=== PATIENT | male | born 1955 | race Caucasian/White ===

== ENCOUNTER → 2016-12-31 | Outpatient (CLI) | payer MEDICAID ==
[~2016-12-31] MED LIST: HYDR-757 PO; NAPR-243 PO; OXYC-12 PO; TRAM-21 PO
== END ==
LOC: RAD 11:39
PROVIDERS: ATTEND Nurse Practitioner Family
DX: M75.122 Complete rotator cuff tear or rupture of left shoulder, not specified as traumatic (principal); M75.82 Other shoulder lesions, left shoulder; S46.812A Strain of other muscles, fascia and tendons at shoulder and upper arm level, left arm, initial encounter; X58.XXXA Exposure to other specified factors, initial encounter; Y99.8 Other external cause status
CPT/HCPCS: 73221

== ENCOUNTER 2018-06-17 05:35 | Outpatient (CLI) | payer MEDICAID ==
[~2018-06-17] VITALS: Ht 177.8 cm; Wt 89.8 kg
[~2018-06-17 05:35] MED LIST changes: +HYDR-4226 PO
[2018-06-17] MEDS ORDERED: METF-397 PO (14:03)
[2018-06-17] MEDS ORDERED: QUET100T PO (14:03)
[2018-06-17] MEDS ORDERED: ALPR1TAB2 PO (14:03)
[2018-06-17] MEDS ORDERED: TRAM50TA2 PO (14:03)
== END 2018-06-17 14:32 | disposition home or self-care (01) ==
LOC: PREOP 05:35
PROVIDERS: ATTEND Specialist
DX: Z01.818 Encounter for other preprocedural examination (principal)

== ENCOUNTER 2018-06-19 07:40 | Day surgery (SDC) | payer MEDICAID ==
[~2018-06-19] VITALS: Ht 177.8 cm; Wt 89.8 kg
[~2018-06-19 07:40] MED LIST changes: +ALPR1TAB2 PO; +METF-397 PO; +QUET100T PO; +TRAM50TA2 PO
--- OUTSIDE RECORDS SUMMARY | 2018-06-19 07:44 | XMS REPORT ---
Author Author ALEYDA PECK [facility] Address [address] [place] [address] Care Team Providers Care Bar Attendant Name Role Phone CISCO ALEYDA Unavailable PROBLEMS Type Condition ICD9-CM Code [id number] Code Onset Dates Condition Status SNOMED Code Problem Bipolar 2 disorder F31.81 Active 94096414 Problem Drug-induced erectile dysfunction N52.2 Active 512125055 Problem JAKE (generalized anxiety disorder) F41.1 Active 93012221 Problem Arthritis of knee, right M17.11 Active [id number] Problem Primary osteoarthritis of both knees M17.0 Active 245303949 Problem Pre-diabetes R73.03 Active 562741598 Problem Other chronic pain G89.29 Active 53127383 Problem Tobacco dependence F17.200 Active 92392631 Problem Lumbago with sciatica, right side M54.41 Active 127075925 ALLERGIES No Known Allergies ENCOUNTERS Encounter Location Date Diagnosis [place] [address] [address] July, [place] [address] [place] [id number] [place] [address]51- 6263 14 Jan, 2018 Primary osteoarthritis of both knees M17.0 [facility] [id number] [place] [address] 44202- 3578 13 Jan, 2018 Bipolar 2 disorder F31.81 and JAKE (generalized anxiety disorder) F41.1 [facility] [address] [address] 18 Dec, 2017 Primary osteoarthritis of both knees M17.0 [facility] [address] [id number] [place] [address] 82621- 5990 18 Dec, 2017 Lumbago with sciatica, right side M54.41 ; Arthritis of knee , right M17.11 and Encounter for immunization Z23 [facility] [id number] [address] Dec, [facility] [id number] [address] Dec, [facility] [id number] [address] Dec, [facility] [id number] [place] [address] 90813- 6006 Dec, Primary osteoarthritis of both knees M17.0 [facility] [id number] [place] [address] 23343- 2364 Nov, [facility] [id number] [address] Nov, Primary osteoarthritis of both knees M17.0 [facility] [id number] [address] Sep, [facility] [address], [place] [address] Sep, [facility] [address] [address] Sep, Primary osteoarthritis of both knees M17.0 ; Lumbago with sciatica, right side M54.41 ; Pre-diabetes R73.03 and Tobacco dependence F17.200 [facility] [address], [place] [address] Aug, [facility] [id number] [address] Aug, [facility] [id number] [address] Aug, [facility] [id number] [address] Aug, Primary osteoarthritis of both knees M17.0 ; Abnormal blood creatinine level R79.9 ; Lumbago with sciatica, right side M54.41 and Pre- diabetes R73.03 [facility] [id number] [place] [address] 34016- 1871 July, Bipolar 2 disorder F31.81 ; JAKE (generalized anxiety disorder) F41.1 and Tobacco dependence F17.200 [facility] [id number] [place] [address] 66440- 5572 July, [facility] [id number] [place] [address] 51542- 1424 Jun, [facility] [id number] [place] [address] 22486- 2319 Jun, [facility] [id number] [place] [address] 01199- 8234 Jun, Abnormal blood creatinine level R79.9 [facility] [id number] [place] [address] 95984- 6489 Jun, Pre-diabetes R73.03 and Primary osteoarthritis of both knees M17.0 [facility] [id number] [place] [address] 09439- 5547 Jun, Pre-diabetes R73.03 ; Other chronic pain G89.29 ; Primary osteoarthritis of both knees M17.0 ; Drug-induced erectile dysfunction N52.2 and Tobacco dependence F17.200 [facility] [id number] [place] [address] 73378- 0216 May, [facility] [id number] [place] [address] 98358- 9994 May, [facility] [id number] [place] [address] 42458- 3135 May, [facility] [id number] [place] [address] 73571- 1059 May, [facility] [id number] [place] [address] 27729- 1521 May, [facility] [id number] [place] [address] 79023- 8074 May, [facility] [address] [address]- [address]483 May, Bipolar 2 disorder F31.81 ; JAKE (generalized anxiety disorder) F41.1 and Tobacco dependence F17.200 [facility] [address] [id number] [place] [address] 51849- 5421 Jan, [facility] [id number] [place] [address] 42255- 6752 Jan, [facility] [id number] [place] [address] 48683- 1990 Dec, [facility] [id number] [place] [address] 58116- 7835 Dec, [facility] [id number] [place] [address] 51594- 6456 Nov, [facility] [id number] [place] [address] 17154- 2792 Nov, Other chronic pain G89.29 and Pain in left shoulder M25.512 [place] [address] [address] [id number] [place] [address] 98169- 5565 05 Nov, 2016 Bipolar 2 disorder F31.81 and JAKE (generalized anxiety disorder) F41.1 [place] [address] [address] [id number] [place] [address] 93431- 7760 Oct, Pre-diabetes R73.03 and Left anterior shoulder pain M25.512 [place] [address] [address] [id number] [place] [address] 38943- 9941 Sep, [place] [address] [id number] [place] [address] 06590- 6739 July, Lumbago with sciatica, right side M54.41 ; Left anterior shoulder pain M25.512 and Pain in right knee M25.561 [place] [address] [address] [id number] [place] [address] 27358- 8733 Jun, [place] [address] [address]- [address] Jun, retirement 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 ; Bipolar 2 disorder F31.81 and JAKE (generalized anxiety disorder) F41.1 [place] [address] [address]- 0986 May, Low back pain M54.5 ; Pain in right knee M25.561 ; Pain in left knee M25.562 and Pre-diabetes R73.03 [place] [address] [address]- [address]121 May, [place] [address] [address] [id number] [place] [address] 10191- 2685 May, [place] [address] [address]76- 4349 May, Drug-induced erectile dysfunction N52.2 [place] [address] [address] [id number] [place] [address] 34219- 0533 Mar, [place] [address] [address] [id number] [place] [address] 28873- 4431 Mar, [place] [address] [address] [id number] [place] [address] 07294- 0353 Mar, Encounter for routine adult health examination with abnormal findings Z00.01 ; Low back pain M54.5 ; Other chronic pain G89.29 ; Pain in right knee M25.561 ; Pain in left knee M25.562 ; Family history of diabetes mellitus Z83.3 and Drug-induced erectile dysfunction N52.2 [place] [address] [address] [id number] [place] [address] 62575- 1644 Mar, Bipolar 2 disorder F31.81 and JAKE (generalized anxiety disorder) F41.1 [place] [address] [place] [id number] [place] [address] 60269- 2667 Mar, [facility] [address] [place] [address]- 5212 Feb, [facility] [id number] [place] [address] 627382- 0815 Feb, [facility] [id number] [place] [address] 84908- 7502 Jan, [facility] [id number] [place] [address] 59585- 7407 Dec, [facility] [id number] [place] [address] 21933- 7192 Dec, [facility] [id number] [place] [address] 38252- 0785 Dec, Bipolar 2 disorder F31.81 and JAKE (generalized anxiety disorder) F41.1 [facility] [id number] [place] [address] 05591- 2670 Nov, [facility] [id number] [place] [address] 10500- 6400 Oct, Bipolar 2 disorder F31.81 and JAKE (generalized anxiety disorder) F41.1 [facility] [id number] [place] [address] 23491- 9092 Oct, Anxiety, generalized F41.1 [facility] [id number] [place] [address] 79425- 9151 Oct, Generalized anxiety disorder F41.1 and Excessive excitability/irritability with unrest R45.89 [facility] [id number] [place] [address] 52444- 8091 Oct, [facility] [id number] [place] [address] 869335- 1497 Sep, [facility] [id number] [place] [address] 94900- 5997 July, [facility] [id number] [place] [address] 11322- 5210 July, retirement 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 and Excessive excitability/ irritability with unrest R45.89 [facility] [id number] [place] [address] 16875- 6315 July, [facility] [id number] [place] [address] 42506- 1637 July, Generalized anxiety disorder F41.1 [facility] [id number] [place] [address] 94420- 0281 May, [facility] [address] [id number] [place] [address] 51268- 0044 May, [facility] [id number] [place] [address] 10810- 7084 Mar, [facility] [id number] [place] [address] 51516- 6148 Feb, [facility] [id number] [place] [address] 35279- 3180 Jan, [facility] [id number] [place] [address] 06534- 7279 Jan, Generalized anxiety disorder F41.1 and Encounter for observation for other suspected diseases and conditions ruled out Z03.89 [facility] [address] [id number] [place] [address] 50847- 6156 Jan, Generalized anxiety disorder F41.1 [facility] [address] [id number] [place] [address] 61266- 9639 Jan, [facility] [id number] [place] [address] 61434- 7165 Dec, Generalized anxiety disorder F41.1 [facility] [address] [id number] [place] [address] 13548- 2248 Dec, Family history of pinworm infection Z83.1 [facility] [id number] [place] [address] 52636- 1677 Nov, Generalized anxiety disorder 300.02 ; No condition on [place] V71.09 and Back problem 724.9 IMMUNIZATIONS No Known Immunizations SOCIAL HISTORY Never Assessed REASON FOR VISIT f/u-twooden,RMA, PDM, Anxiety / mood PLAN OF CARE Activity Details Follow Up 6 Months Reason: VITAL SIGNS Height 72 in 2018-02-10 Weight 205.3 lbs 2018-02-10 Temperature 97.6 degrees Fahrenheit 2018-02-10 Heart Rate 106 bpm 2018-02-10 Respiratory Rate 20 2018-02-10 BMI 27.84 kg/m2 2018-02-10 Blood pressure systolic 116 mmHg 2018-02-10 Blood pressure diastolic 64 mmHg 2018-02-10 MEDICATIONS Medication Instructions Dosage Frequency Start Date End Date Duration Status Xanax XR 3 MG Orally Once a day for anxiety 1 tablet Mar, Active Metformin HCl 500 mg 1 tablet with meals 12h 90 Active Xanax 1 MG Orally take at bedtime 1 tablet Mar, Active Seroquel 100 mg Orally at bedtime 1 tablet Oct, Active Tramadol HCl 50 mg Orally 3 times a day 1 tablet as needed 8h Aug, 60 days Active Viagra 25 MG Orally Once a day 1-2 tablet daily as needed before sexual activitiy 24h 5 Active RESULTS No Results PROCEDURES Procedure Date Ordered Result Body Site LAB NOT BILLED BY [employer] Feb 10, 2018 INSTRUCTIONS MEDICATIONS ADMINISTERED No Known Medications MEDICAL (GENERAL) HISTORY Type Description Date Medical History Anxiety Medical History depression Medical History Bilateral knee pain-needing repair Medical History 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
--- OUTSIDE RECORDS SUMMARY | 2018-06-19 07:44 | XMS REPORT ---
Author Author YANDY WATT Organization [facility] Address [address] [place] [address] Care Team Providers Care Academic Counselor Name Role Phone YANDY WATT Unavailable PROBLEMS Type Condition ICD9-CM Code TKY27-CN Code Onset Dates Condition Status SNOMED Code Problem Bipolar 2 disorder F31.81 Active 69598501 Problem Drug-induced erectile dysfunction N52.2 Active 055337257 Problem JAKE (generalized anxiety disorder) F41.1 Active 13666682 Problem Arthritis of knee, right M17.11 Active [id number] Problem Primary osteoarthritis of both knees M17.0 Active 675151799 Problem Pre-diabetes R73.03 Active 651317463 Problem Other chronic pain G89.29 Active 18583901 Problem Tobacco dependence F17.200 Active 56599260 Problem Lumbago with sciatica, right side M54.41 Active [id number] ALLERGIES No Information ENCOUNTERS Encounter Location Date Diagnosis [place] [address] [address] July, [facility] [id number] [place] [address]4085- [address]30 14 Jan, 2018 Primary osteoarthritis of both knees M17.0 [facility] [id number] [place] [address] 18428- 4463 13 Jan, 2018 Bipolar 2 disorder F31.81 and JAKE (generalized anxiety disorder) F41.1 [facility] [address] [address] 18 Dec, 2017 Primary osteoarthritis of both knees M17.0 [facility] [address] [address] 18 Dec, 2017 Lumbago with sciatica, right side M54.41 ; Arthritis of knee , right M17.11 and Encounter for immunization Z23 [facility] [id number] [address] Dec, [facility] [id number] [address] Dec, [facility] [id number] [address] Dec, [facility] [id number] [place] [address] 17541- 3029 Dec, Primary osteoarthritis of both knees M17.0 [facility] [id number] [place] [address] 88987- 4457 Nov, [facility] [id number] [address] Nov, Primary osteoarthritis of both knees M17.0 [facility] [id number] [place] [address] 45361- 0705 Sep, [facility] [id number] [address] Sep, [facility] [id number] [address] Sep, Primary osteoarthritis of both knees M17.0 ; Lumbago with sciatica, right side M54.41 ; Pre-diabetes R73.03 and Tobacco dependence F17.200 [facility] [address] [address] Aug, [facility] [address] [address] Aug, [facility] [id number] [address] Aug, [facility] [address] [address] Aug, Primary osteoarthritis of both knees M17.0 ; Abnormal blood creatinine level R79.9 ; Lumbago with sciatica, right side M54.41 and Pre- diabetes R73.03 [facility] [id number] [place] [address] 17841- 6787 July, Bipolar 2 disorder F31.81 ; JAKE (generalized anxiety disorder) F41.1 and Tobacco dependence F17.200 [facility] [id number] [place] [address] 55046- 2330 July, [facility] [id number] [place] [address] 35334- 3344 Jun, [facility] [id number] [place] [address] 06862- 0783 Jun, [facility] [id number] [place] [address] 71818- 4079 Jun, Abnormal blood creatinine level R79.9 [facility] [id number] [place] [address] 27187- 1218 Jun, Pre-diabetes R73.03 and Primary osteoarthritis of both knees M17.0 [facility] [id number] [place] [address] 45618- 4170 Jun, Pre-diabetes R73.03 ; Other chronic pain G89.29 ; Primary osteoarthritis of both knees M17.0 ; Drug-induced erectile dysfunction N52.2 and Tobacco dependence F17.200 [facility] [id number] [place] [address] 26583- 5827 May, [facility] [id number] [place] [address] 68647- 9778 May, [facility] [id number] [place] [address] 22185- 1638 May, [facility] [id number] [place] [address] 69380- 9074 May, [facility] [id number] [place] [address] 81048- 9071 May, [facility] [id number] [place] [address] 45882- 9333 May, [facility] [id number] [place] [address] 74352- 5911 May, Bipolar 2 disorder F31.81 ; JAKE (generalized anxiety disorder) F41.1 and Tobacco dependence F17.200 [facility] [id number] [place] [address] 30797- 7949 Jan, [facility] [id number] [place] [address] 45939- 3475 Jan, [facility] [id number] [place] [address] 90049- 5530 Dec, [facility] [id number] [place] [address] 15707- 5785 Dec, [facility] [id number] [place] [address] 09810- 4807 Nov, [facility] [id number] [place] [address] 03660- 9495 Nov, Other chronic pain G89.29 and Pain in left shoulder M25.512 [place] [id number] [place] [address] 17433- 7741 05 Nov, 2016 Bipolar 2 disorder F31.81 and JAKE (generalized anxiety disorder) F41.1 [facility] [id number] [place] [address] 44386- 4806 Oct, Pre-diabetes R73.03 and Left anterior shoulder pain M25.512 [facility] [id number] [place] [address] 75712- 0849 Sep, [facility] [id number] [place] [address] 67881- 5890 July, Lumbago with sciatica, right side M54.41 ; Left anterior shoulder pain M25.512 and Pain in right knee M25.561 [facility] [id number] [place] [address] 78243- 9941 Jun, [place] [address] [address] Jun, intermediate 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 ; Bipolar 2 disorder F31.81 and JAKE (generalized anxiety disorder) F41.1 [place] [address] [address]- [address] May, Low back pain M54.5 ; Pain in right knee M25.561 ; Pain in left knee M25.562 and Pre-diabetes R73.03 [place] [address] [address] May, [place] [id number] [place] [address] 84186- 9008 May, [place] [address] 40[address]- 6298 May, Drug-induced erectile dysfunction N52.2 [place] [id number] [place] [address] 77675- 2625 Mar, [place] [id number] [place] [address] 51903- 0126 Mar, [place] [id number] [place] [address] 83121- 3410 Mar, Encounter for routine adult health examination with abnormal findings Z00.01 ; Low back pain M54.5 ; Other chronic pain G89.29 ; Pain in right knee M25.561 ; Pain in left knee M25.562 ; Family history of diabetes mellitus Z83.3 and Drug-induced erectile dysfunction N52.2 [place] [id number] [place] [address] 89054- 2517 Mar, Bipolar 2 disorder F31.81 and JAKE (generalized anxiety disorder) F41.1 [place] [id number] [place] [address] 51478- 7843 Mar, [facility] [address], [place] [address]- 9[address] Feb, [facility] [id number] [place] [address] 617854- 9320 Feb, [facility] [id number] [place] [address] 83013- 4175 Jan, [facility] [id number] [place] [address] 55055- 8568 Dec, [facility] [id number] [place] [address] 02654- 1716 Dec, [facility] [id number] [place] [address] 46178- 9043 Dec, Bipolar 2 disorder F31.81 and JAKE (generalized anxiety disorder) F41.1 [facility] [id number] [place] [address] 70463- 8225 Nov, [facility] [id number] [place] [address] 24149- 8167 Oct, Bipolar 2 disorder F31.81 and JAKE (generalized anxiety disorder) F41.1 [facility] [id number] [place] [address] 59420- 1796 Oct, Anxiety, generalized F41.1 [facility] [id number] [place] [address] 64617- 2442 Oct, Generalized anxiety disorder F41.1 and Excessive excitability/irritability with unrest R45.89 [facility] [id number] [place] [address] 58265- 7040 Oct, [facility] [id number] [place] [address] 450678- 3765 Sep, [facility] [id number] [place] [address] 232567- 8961 July, [facility] [id number] [place] [address] 40486- 3138 July, intermediate 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 and Excessive excitability/ irritability with unrest R45.89 [facility] [id number] [place] [address] 48748- 3742 July, [facility] [id number] [place] [address] 86869- 6599 July, Generalized anxiety disorder F41.1 [facility] [id number] [place] [address] 50513- 9723 May, [facility] [id number] [place] [address] 43918- 6092 May, [facility] [id number] [place] [address] 67340- 8811 Mar, [facility] [id number] [place] [address] 77611- 6876 Feb, [facility] [id number] [place] [address] 27361- 5849 Jan, [facility] [id number] [place] [address] 67218- 9531 Jan, Generalized anxiety disorder F41.1 and Encounter for observation for other suspected diseases and conditions ruled out Z03.89 [facility] [id number] [place] [address] 54790- 4236 Jan, Generalized anxiety disorder F41.1 [facility] [id number] [place] [address] 37918- 7628 Jan, [facility] [id number] [place] [address] 43974- 5288 Dec, Generalized anxiety disorder F41.1 [facility] [id number] [place] [address] 52251- 4876 Dec, Family history of pinworm infection Z83.1 [facility] [id number] [place] [address] 80060- 0249 Nov, Generalized anxiety disorder 300.02 ; No condition on [place] II V71.09 and Back problem 724.9 IMMUNIZATIONS No Known Immunizations SOCIAL HISTORY Never Assessed REASON FOR VISIT Controlled Med Refill 02/12 PLAN OF CARE VITAL SIGNS MEDICATIONS Unknown Medications RESULTS No Results PROCEDURES No Known procedures INSTRUCTIONS MEDICATIONS ADMINISTERED No Known Medications MEDICAL (GENERAL) HISTORY Type Description Date Medical History Anxiety Medical History depression Medical History Bilateral knee pain-needing repair Medical History 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
--- OUTSIDE RECORDS SUMMARY | 2018-06-19 07:44 | XMS REPORT ---
Author Author ALEYDA PECK 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 Phone [employer]IS[employer] ALEYDA Unavailable PROBLEMS Type Condition ICD9-CM Code VRG31-FX Code Onset Dates Condition Status SNOMED Code Problem Bipolar 2 disorder F31.81 Active 53572292 Problem Drug-induced erectile dysfunction N52.2 Active 525301217 Problem JAKE (generalized anxiety disorder) F41.1 Active 43734789 Problem Arthritis of knee, right M17.11 Active 6107512148117965 Problem Primary osteoarthritis of both knees M17.0 Active 372396535 Problem Pre-diabetes R73.03 Active 406968847 Problem Other chronic pain G89.29 Active 32029723 Problem Tobacco dependence F17.200 Active 85508881 Problem Lumbago with sciatica, right side M54.41 Active 237332934 ALLERGIES No Information ENCOUNTERS Encounter Location Date Diagnosis [facility] [address] [address]92- [address] 14 Jul, 2018 [facility] [address] 07805- 5038 18 Feb, 2018 [facility] [address] 80438- 9240 14 Jan, 2018 Primary osteoarthritis of both knees M17.0 [facility] [address] 54200- 7466 13 Jan, 2018 Bipolar 2 disorder F31.81 and JAKE (generalized anxiety disorder) F41.1 [facility] [address] 04995- 8665 18 Dec, 2017 Primary osteoarthritis of both knees M17.0 [facility] [address] 64098- 6658 Dec, Lumbago with sciatica, right side M54.41 ; Arthritis of knee , right M17.11 and Encounter for immunization Z23 [facility] [id number] [place] [address] 54332- 6188 Dec, [facility] [id number] [place] [address] 35785- 9243 Dec, [facility] [id number] [place] [address] 03764- 1027 Dec, [facility] [id number] [place] [address] 44686- 7332 Dec, Primary osteoarthritis of both knees M17.0 [facility] [id number] [place] [address] 72601- 9164 Nov, [facility] [id number] [place] [address] 03694- 9146 Nov, Primary osteoarthritis of both knees M17.0 [facility] [id number] [place] [address] 12877- 3109 Sep, [facility] [id number] [place] [address] 57787- 1226 Sep, [facility] [address] [address]- 1360 Sep, Primary osteoarthritis of both knees M17.0 ; Lumbago with sciatica, right side M54.41 ; Pre-diabetes R73.03 and Tobacco dependence F17.200 [facility] [address] [address]- 0028 Aug, [facility] [id number] [place] [address] 67798- 7312 Aug, [facility] [id number] [address]- 6830 Aug, [facility] [id number] [place] [address] 77241- 2100 Aug, Primary osteoarthritis of both knees M17.0 ; Abnormal blood creatinine level R79.9 ; Lumbago with sciatica, right side M54.41 and Pre- diabetes R73.03 [facility] [id number] [place] [address] 77348- 3883 July, Bipolar 2 disorder F31.81 ; JAKE (generalized anxiety disorder) F41.1 and Tobacco dependence F17.200 [facility] [id number] [place] [address] 88016- 1466 July, [facility] [id number] [place] [address] 22361- 8229 Jun, [facility] [id number] [place] [address] 70434- 6099 Jun, [facility] [id number] [place] [address] 91959- 5714 Jun, Abnormal blood creatinine level R79.9 [facility] [id number] [place] [address] 78437- 1389 Jun, Pre-diabetes R73.03 and Primary osteoarthritis of both knees M17.0 [facility] [id number] [place] [address] 23706- 2258 Jun, Pre-diabetes R73.03 ; Other chronic pain G89.29 ; Primary osteoarthritis of both knees M17.0 ; Drug-induced erectile dysfunction N52.2 and Tobacco dependence F17.200 [facility] [id number] [place] [address] 93791- 3857 May, [facility] [id number] [place] [address] 46910- 7582 May, [facility] [id number] [place] [address] 38154- 5240 May, [facility] [id number] [place] [address] 25336- 2047 May, [facility] [address] [address]- 2586 May, [facility] [id number] [place] [address] 25031- 7926 May, [facility] [id number] [place] [address] 19006- 9416 May, Bipolar 2 disorder F31.81 ; JAKE (generalized anxiety disorder) F41.1 and Tobacco dependence F17.200 [facility] [id number] [place] [address] 45510- 7216 Jan, [facility] [id number] [place] [address] 79814- 5646 Jan, [facility] [id number] [place] [address] 06651- 5866 Dec, [facility] [id number] [place] [address] 05042- 7610 Dec, [facility] [id number] [place] [address] 01750- 4189 Nov, [facility] [id number] [place] [address] 10000- 6755 Nov, Other chronic pain G89.29 and Pain in left shoulder M25.512 [facility] [id number] [place] [address] 65720- 5338 05 Nov, 2016 Bipolar 2 disorder F31.81 and JAKE (generalized anxiety disorder) F41.1 [facility] [id number] [place] [address] 18702- 9226 Oct, Pre-diabetes R73.03 and Left anterior shoulder pain M25.512 [facility] [id number] [place] [address] 76731- 2546 Sep, [facility] [id number] [place] [address] 72756- 2643 July, Lumbago with sciatica, right side M54.41 ; Left anterior shoulder pain M25.512 and Pain in right knee M25.561 [facility] [id number] [place] [address] 50379- 3024 Jun, [place] [facility] [id number] [place] [address] 11768- 0423 Jun, 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 ; Bipolar 2 disorder F31.81 and JAKE (generalized anxiety disorder) F41.1 [facility] [id number] [place] [address] 19329- 5105 May, Low back pain M54.5 ; Pain in right knee M25.561 ; Pain in left knee M25.562 and Pre-diabetes R73.03 [facility] [id number] [place] [address] 39900- 6683 May, [facility] [address] 16381- 8356 May, [facility] [id number] [place] [address] 40628- 2930 May, Drug-induced erectile dysfunction N52.2 [facility] [id number] [place] [address] 41365- 5331 Mar, [facility] [id number] [place] [address] 20099- 0886 Mar, [facility] [id number] [place] [address] 03489- 8576 Mar, Encounter for routine adult health examination with abnormal findings Z00.01 ; Low back pain M54.5 ; Other chronic pain G89.29 ; Pain in right knee M25.561 ; Pain in left knee M25.562 ; Family history of diabetes mellitus Z83.3 and Drug-induced erectile dysfunction N52.2 [place] [facility] [id number] [place] [address] 61338- 8976 Mar, Bipolar 2 disorder F31.81 and JAKE (generalized anxiety disorder) F41.1 [facility] [id number] [place] [address] 62104- 2741 Mar, [facility] [id number] [place] [address] 39533- 8419 Feb, [facility] [id number] [place] [address] 80516- 7736 Feb, [facility] [id number] [place] [address] 57309- 2601 Jan, [facility] [id number] [place] [address] 32139- 9523 Dec, [facility] [id number] [place] [address] 94083- 3456 Dec, [facility] [id number] [place] [address] 25691- 4437 Dec, Bipolar 2 disorder F31.81 and JAKE (generalized anxiety disorder) F41.1 [facility] [id number] [place] [address] 43436- 1901 Nov, [facility] [id number] [place] [address] 35503- 1177 Oct, Bipolar 2 disorder F31.81 and JAKE (generalized anxiety disorder) F41.1 [facility] [id number] [place] [address] 90481- 4770 Oct, Anxiety, generalized F41.1 [facility] [id number] [place] [address] 74134- 5119 Oct, Generalized anxiety disorder F41.1 and Excessive excitability/irritability with unrest R45.89 [facility] [id number] [place] [address] 52172- 9106 Oct, [facility] [id number] [place] [address] 481272- 3546 Sep, [facility] [id number] [place] [address] 31495- 3779 July, [facility] [id number] [place] [address] 15670- 7992 July, assisted 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 and Excessive excitability/ irritability with unrest R45.89 [facility] [id number] [place] [address] 32980- 8141 July, [facility] [id number] [place] [address] 35287- 1865 July, Generalized anxiety disorder F41.1 [facility] [id number] [place] [address] 68754- 0727 May, [facility] [id number] [place] [address] 48317- 2870 May, [facility] [id number] [place] [address] 51009- 4390 Mar, [facility] [id number] [place] [address] 21964- 6461 Feb, [facility] [id number] [place] [address] 99997- 9013 Jan, [facility] [id number] [place] [address] 65740- 5145 Jan, Generalized anxiety disorder F41.1 and Encounter for observation for other suspected diseases and conditions ruled out Z03.89 [facility] [id number] [place] [address] 84138- 7856 Jan, Generalized anxiety disorder F41.1 [facility] [id number] [place] [address] 80009- 3217 Jan, [facility] [id number] [place] [address] 73750- 5332 Dec, Generalized anxiety disorder F41.1 [facility] [address] [address]- 4483 Dec, Family history of pinworm infection Z83.1 [facility] [address] [facility] [id number] [place] [address]- 1480 Nov, Generalized anxiety disorder 300.02 ; No condition on [place] II V71.09 and Back problem 724.9 IMMUNIZATIONS No Known Immunizations SOCIAL HISTORY Never Assessed REASON FOR VISIT xanax refill PLAN OF CARE VITAL SIGNS MEDICATIONS Medication Instructions Dosage Frequency Start Date End Date Duration Status Xanax XR 3 MG Orally Once a day for anxiety 1 tablet Mar, 30 days Active Xanax 1 MG Orally take at bedtime 1 tablet Mar, 30 days Active RESULTS No Results PROCEDURES No Known procedures INSTRUCTIONS MEDICATIONS ADMINISTERED No Known Medications MEDICAL (GENERAL) HISTORY Type Description Date Medical History Anxiety Medical History depression Medical History Bilateral knee pain-needing repair Medical History Disc herniation in lumbar spine Medical History Fractured clavicle-healed incorrectly Surgical History Right shoulder rotator cuff repair Surgical History Left Shoulder reconstruction 2017 Hospitalization History Surgeries Hospitalization History Disc dislocation- [facility]
[2018-06-19 07:45] VITALS: BP 109/86
--- OUTSIDE RECORDS SUMMARY | 2018-06-19 07:45 | XMS REPORT ---
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 Name Role Phone YANDY WATT Unavailable PROBLEMS Type Condition ICD9-CM Code ZPW86-GQ Code Onset Dates Condition Status SNOMED Code Problem JAKE (generalized anxiety disorder) F41.1 Active 89225662 Problem Bipolar 2 disorder F31.81 Active 17428641 Problem Primary osteoarthritis of both knees M17.0 Active 399469128 Problem Tobacco dependence F17.200 Active 40699803 Problem Other chronic pain G89.29 Active 01735900 Problem Drug-induced erectile dysfunction N52.2 Active 143345075 Problem Lumbago with sciatica, right side M54.41 Active 170539284 Problem Pre-diabetes R73.03 Active 957875168 ALLERGIES No Information ENCOUNTERS Encounter Location Date Diagnosis [facility] [id number] [place] [address] 22046- 4185 Jan, [facility] [id number] [place] [address] 49469- 0883 Nov, Primary osteoarthritis of both knees M17.0 [facility] [id number] [place] [address] 91459- 9940 Sep, [facility] [id number] [place] [address] 42313- 4312 Sep, [facility] [id number] [place] [address] 71749- 5826 Sep, Primary osteoarthritis of both knees M17.0 ; Lumbago with sciatica, right side M54.41 ; Pre-diabetes R73.03 and Tobacco dependence F17.200 [facility] [id number] [place] [address] 54112- 9849 Aug, [facility] [address], [place] [address]- 3651 Aug, [facility] [id number] [place] [address] 37204- 5272 Aug, [facility] [id number] [place] [address] 84081- 2631 Aug, Primary osteoarthritis of both knees M17.0 ; Abnormal blood creatinine level R79.9 ; Lumbago with sciatica, right side M54.41 and Pre- diabetes R73.03 [facility] [id number] [place] [address] 01625- 4748 July, Bipolar 2 disorder F31.81 ; JAKE (generalized anxiety disorder) F41.1 and Tobacco dependence F17.200 [facility] [id number] [place] [address] 07303- 6173 July, [facility] [id number] [place] [address] 35307- 8136 Jun, [facility] [id number] [place] [address] 69966- 2401 Jun, [facility] [id number] [place] [address] 77843- 0823 Jun, Abnormal blood creatinine level R79.9 [facility] [id number] [place] [address] 38415- 1639 Jun, Pre-diabetes R73.03 and Primary osteoarthritis of both knees M17.0 [facility] [address], [place] [address]- 0485 Jun, Pre-diabetes R73.03 ; Other chronic pain G89.29 ; Primary osteoarthritis of both knees M17.0 ; Drug-induced erectile dysfunction N52.2 and Tobacco dependence F17.200 [facility] [address], [place] [address]- 6226 May, [facility] [id number] [address]- 7899 May, [facility] [id number] [place] [address] 33485- 4747 May, [facility] [id number] [place] [address] 56282- 5216 May, [facility] [id number] [place] [address] 36903- 6774 May, [facility] [id number] [place] [address] 17239- 3045 May, [facility] [id number] [place] [address] 13657- 5808 May, Bipolar 2 disorder F31.81 ; JAKE (generalized anxiety disorder) F41.1 and Tobacco dependence F17.200 [facility] [id number] [place] [address] 06745- 0412 Jan, [facility] [id number] [place] [address] 88594- 7421 Jan, [facility] [id number] [place] [address] 08584- 1320 Dec, [facility] [id number] [place] [address] 83901- 0578 Dec, [facility] [id number] [place] [address] 31471- 3189 Nov, [facility] [id number] [place] [address] 22301- 2183 Nov, Other chronic pain G89.29 and Pain in left shoulder M25.512 [facility] [id number] [place] [address] 27174- 0529 05 Nov, 2016 Bipolar 2 disorder F31.81 and JAKE (generalized anxiety disorder) F41.1 [facility] [id number] [place] [address] 03502- 1983 Oct, Pre-diabetes R73.03 and Left anterior shoulder pain M25.512 [facility] [id number] [place] [address] 78576- 1409 Sep, [facility] [id number] [place] [address] 14937- 6397 July, Lumbago with sciatica, right side M54.41 ; Left anterior shoulder pain M25.512 and Pain in right knee M25.561 [facility] [id number] [place] [address] 47912- 8878 Jun, [facility] [id number] [place] [address] 29273- 5485 Jun, 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 ; Bipolar 2 disorder F31.81 and JAKE (generalized anxiety disorder) F41.1 [place] [id number] [place] [address] 37082- 6091 May, Low back pain M54.5 ; Pain in right knee M25.561 ; Pain in left knee M25.562 and Pre-diabetes R73.03 [facility] [id number] [place] [address] 14363- 7803 May, [facility] [id number] [place] [address] 17395- 3893 May, [facility] [id number] [place] [address] 84054- 5508 May, Drug-induced erectile dysfunction N52.2 [facility] [id number] [place] [address] 77219- 0432 Mar, [facility] [id number] [place] [address] 95568- 5665 Mar, [facility] [id number] [place] [address] 76517- 4257 Mar, Encounter for routine adult health examination with abnormal findings Z00.01 ; Low back pain M54.5 ; Other chronic pain G89.29 ; Pain in right knee M25.561 ; Pain in left knee M25.562 ; Family history of diabetes mellitus Z83.3 and Drug-induced erectile dysfunction N52.2 [facility] [id number] [place] [address] 82283- 4558 Mar, Bipolar 2 disorder F31.81 and JAKE (generalized anxiety disorder) F41.1 [facility] [address] 19180- 6291 Mar, [facility] [id number] [place] [address] 95347- 8833 Feb, [facility] [address] 94037- 0745 Feb, [facility] [address] 25071- 1412 Jan, [facility] [address] 29040- 7763 Dec, [facility] [id number] [place] [address] 92832- 0951 Dec, [facility] [id number] [place] [address] 67891- 4655 Dec, Bipolar 2 disorder F31.81 and JAKE (generalized anxiety disorder) F41.1 [facility] [id number] [place] [address] 54666- 1942 Nov, [facility] [id number] [place] [address] 24612- 8832 Oct, Bipolar 2 disorder F31.81 and JAKE (generalized anxiety disorder) F41.1 [facility] [id number] [place] [address] 94207- 7705 Oct, Anxiety, generalized F41.1 [facility] [id number] [place] [address] 58228- 2661 Oct, Generalized anxiety disorder F41.1 and Excessive excitability/irritability with unrest R45.89 [facility] [id number] [place] [address] 71384- 6731 Oct, [facility] [id number] [place] [address] 61897- 5136 Sep, [facility] [id number] [place] [address] 26455- 9026 July, [facility] [address] 33153- 4256 July, 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 and Excessive excitability/ irritability with unrest R45.89 [facility] [address] 26460- 3884 July, [facility] [id number] [place] [address] 06497- 7009 July, Generalized anxiety disorder F41.1 [facility] [address] 70967- 9617 May, [facility] [id number] [place] [address] 59103- 4130 May, [facility] [id number] [place] [address] 52890- 4471 Mar, [facility] [id number] [place] [id number]- [id number] Feb, [facility] [id number] [place] [address] [phone]- [phone] Jan, [facility] [id number] [place] [address] [id number]- 4[address] Jan, Generalized anxiety disorder F41.1 and Encounter for observation for other suspected diseases and conditions ruled out Z03.89 [facility] [id number] [place] [address] [id number]- 6760 Jan, Generalized anxiety disorder F41.1 [facility] [id number] [place] [phone]- [phone] Jan, [facility] [address] [facility] [id number] [address] Dec, Generalized anxiety disorder F41.1 [facility] [address] [facility] [id number], [place] [address] Dec, Family history of pinworm infection Z83.1 [facility] [address] [facility] [id number], [place] [address] Nov, Generalized anxiety disorder 300.02 ; No condition on [place] II V71.09 and Back problem 724.9 IMMUNIZATIONS No Known Immunizations SOCIAL HISTORY Never Assessed REASON FOR VISIT diagnosis question PLAN OF CARE VITAL SIGNS MEDICATIONS Unknown [...] Hospitalization History Surgeries Hospitalization History Disc dislocation- [facility]
--- OUTSIDE RECORDS SUMMARY | 2018-06-19 07:45 | XMS REPORT ---
Author Author YANDY WATT Organization [facility] Address [address] [place] [address] Care Team Providers Care Public Information Specialist Name Role Phone YANDY WATT Unavailable PROBLEMS Type Condition ICD9-CM Code KLP98-TM Code Onset Dates Condition Status SNOMED Code Problem JAKE (generalized anxiety disorder) F41.1 Active 46530001 Problem Bipolar 2 disorder F31.81 Active 15536178 Problem Primary osteoarthritis of both knees M17.0 Active 902045276 Problem Tobacco dependence F17.200 Active 55666379 Problem Other chronic pain G89.29 Active 09017210 Problem Drug-induced erectile dysfunction N52.2 Active 369627948 Problem Lumbago with sciatica, right side M54.41 Active 902891348 Problem Pre-diabetes R73.03 Active 418774654 ALLERGIES No Information ENCOUNTERS Encounter Location Date Diagnosis [facility] [id number] [place] [address] 69032- 7704 Jan, [facility] [id number] [place] [address] 22395- 5157 Dec, [facility] [id number] [place] [address] 61536- 6447 Dec, [facility] [id number] [place] [address] 39694- 8784 Dec, [facility] [id number] [place] [address] 67128- 2718 Dec, Primary osteoarthritis of both knees M17.0 [facility] [id number] [place] [address] 97076- 3114 Nov, [facility] [id number] [place] [address] 66337- 1496 Nov, Primary osteoarthritis of both knees M17.0 [facility] [address] [address]- 9064 Sep, [facility] [id number] [place] [address] 60783- 5876 Sep, [facility] [address] [address] 8573 Sep, Primary osteoarthritis of both knees M17.0 ; Lumbago with sciatica, right side M54.41 ; Pre-diabetes R73.03 and Tobacco dependence F17.200 [facility] [id number] [place] [address] 53052- 9226 Aug, [facility] [id number] [place] [address] 58614- 4739 Aug, [facility] [id number] [place] [address] 81713- 8153 Aug, [facility] [id number] [address]- 6315 Aug, Primary osteoarthritis of both knees M17.0 ; Abnormal blood creatinine level R79.9 ; Lumbago with sciatica, right side M54.41 and Pre- diabetes R73.03 [facility] [address] [address] 2022 July, Bipolar 2 disorder F31.81 ; JAKE (generalized anxiety disorder) F41.1 and Tobacco dependence F17.200 [facility] [address] [address]- 9799 July, [facility] [id number] [address]- 3875 Jun, [facility] [id number] [address]- 5800 Jun, [facility] [address] [address]- 0051 05 Apr, 2018 Abnormal blood creatinine level R79.9 [facility] [address] [address]- 3308 Jun, Pre-diabetes R73.03 and Primary osteoarthritis of both knees M17.0 [facility] [id number] [place] [address] 55570- 3153 02 Jun, 2017 Pre-diabetes R73.03 ; Other chronic pain G89.29 ; Primary osteoarthritis of both knees M17.0 ; Drug-induced erectile dysfunction N52.2 and Tobacco dependence F17.200 [facility] [id number] [place] [address] 06766- 9019 May, [facility] [id number] [place] [address] 92380- 6800 May, [facility] [id number] [place] [address] 17336- 6798 May, [facility] [id number] [place] [address] 96148- 1561 May, [facility] [id number] [place] [address] 75831- 3713 May, [facility] [id number] [place] [address] 40004- 3926 May, [facility] [id number] [place] [address] 54914- 0807 May, Bipolar 2 disorder F31.81 ; JAKE (generalized anxiety disorder) F41.1 and Tobacco dependence F17.200 [facility] [id number] [address]- 9700 Jan, [facility] [id number] [place] [address] 08018- 7589 Jan, [facility] [id number] [place] [address] 10503- 0963 Dec, [facility] [id number] [place] [address] 72300- 1844 Dec, [facility] [id number] [place] [address] 84174- 9762 Nov, [facility] [id number] [place] [address] 32170- 3279 Nov, Other chronic pain G89.29 and Pain in left shoulder M25.512 [facility] [id number] [place] [address] 06135- 5981 Nov, Bipolar 2 disorder F31.81 and JAKE (generalized anxiety disorder) F41.1 [facility] [id number] [place] [address] 56235- 0113 Oct, Pre-diabetes R73.03 and Left anterior shoulder pain M25.512 [facility] [id number] [place] [address] 17299- 2229 Sep, [facility] [address] 63108- 0096 July, Lumbago with sciatica, right side M54.41 ; Left anterior shoulder pain M25.512 and Pain in right knee M25.561 [facility] [id number] [place] [address] 28769- 2759 Jun, [facility] [id number] [place] [address] 29298- 4782 Jun, 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 ; Bipolar 2 disorder F31.81 and JAKE (generalized anxiety disorder) F41.1 [facility] [id number] [place] [address] 38534- 0187 May, Low back pain M54.5 ; Pain in right knee M25.561 ; Pain in left knee M25.562 and Pre-diabetes R73.03 [facility] [id number] [place] [address] 62670- 1799 May, [facility] [id number] [place] [address] 02122- 9934 May, [facility] [address] [address]- 4537 May, Drug-induced erectile dysfunction N52.2 [facility] [id number] [place] [address] 42845- 4293 Mar, [facility] [id number] [place] [address] 42184- 3523 Mar, [facility] [id number] [place] [address] 82693- 5520 Mar, Encounter for routine adult health examination with abnormal findings Z00.01 ; Low back pain M54.5 ; Other chronic pain G89.29 ; Pain in right knee M25.561 ; Pain in left knee M25.562 ; Family history of diabetes mellitus Z83.3 and Drug-induced erectile dysfunction N52.2 [facility] [id number] [place] [address] 70074- 5830 Mar, Bipolar 2 disorder F31.81 and JAKE (generalized anxiety disorder) F41.1 [facility] [id number] [place] [address] 36328- 0276 Mar, [facility] [id number] [place] [address] 99137- 1617 Feb, [facility] [id number] [place] [address] 68214- 5622 Feb, [facility] [id number] [place] [address] 78367- 9508 Jan, [facility] [id number] [place] [address] 55289- 8583 Dec, [facility] [id number] [place] [address] 49766- 2981 Dec, [facility] [id number] [place] [address] 60355- 1885 Dec, Bipolar 2 disorder F31.81 and JAKE (generalized anxiety disorder) F41.1 [facility] [id number] [place] [address] 08694- 0153 Nov, [facility] [id number] [place] [address] 74887- 1860 Oct, Bipolar 2 disorder F31.81 and JAKE (generalized anxiety disorder) F41.1 [facility] [id number] [place] [address] 37525- 5568 Oct, Anxiety, generalized F41.1 [facility] [id number] [place] [address] 10675- 0063 Oct, Generalized anxiety disorder F41.1 and Excessive excitability/irritability with unrest R45.89 [facility] [id number] [place] [address] 14113- 9581 Oct, [facility] [id number] [place] [address] 84499- 3171 Sep, [facility] [id number] [place] [address] 62649- 1311 July, [facility] [id number] [place] [address] 43786- 0901 July, 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 and Excessive excitability/ irritability with unrest R45.89 [facility] [id number] [place] [address] 30048- 2179 July, [facility] [id number] [place] [address] 71524- 7798 July, Generalized anxiety disorder F41.1 [facility] [id number] [place] [address] 97665- 4911 May, [facility] [id number] [place] [address] 56095- 3539 May, [facility] [id number] [place] [address] 25436- 8262 Mar, [facility] [address] [address]- 8684 Feb, [facility] [id number] [place] [address] 00820- 2786 Jan, [facility] [id number] [place] [address] 10481- 8879 Jan, Generalized anxiety disorder F41.1 and Encounter for observation for other suspected diseases and conditions ruled out Z03.89 [facility] [id number] [place] [address] 78461- 1926 Jan, Generalized anxiety disorder F41.1 [facility] [id number] [place] [address] 25159- 0241 Jan, [facility] [id number] [place] [address] 64901- 0249 Dec, Generalized anxiety disorder F41.1 [facility] [id number] [place] [address] 29226- 5758 Dec, Family history of pinworm infection Z83.1 [facility] [address] [place] [address] 99866- 1454 Nov, Generalized anxiety disorder 300.02 ; No condition on Rillito II V71.09 and Back problem 724.9 IMMUNIZATIONS No Known Immunizations SOCIAL HISTORY Never Assessed REASON FOR VISIT Controlled Med Refill PLAN OF CARE VITAL SIGNS MEDICATIONS Medication Instructions Dosage Frequency Start Date End Date Duration Status Tramadol HCl 50 mg Orally 3 times a day 1 tablet as needed 8h Aug, Active RESULTS No Results PROCEDURES No Known [...] Hospitalization History Surgeries Hospitalization History Disc dislocation- [facility]
--- OUTSIDE RECORDS SUMMARY | 2018-06-19 07:45 | XMS REPORT ---
Author Author [facility] Address [address] [place] [address] Care Team Providers Care Compliance Examiner Name Role Phone [facility] Unavailable PROBLEMS Type Condition ICD9-CM Code XNW67-IQ Code Onset Dates Condition Status SNOMED Code Problem JAKE (generalized anxiety disorder) F41.1 Active 90446921 Problem Bipolar 2 disorder F31.81 Active 92513700 Problem Primary osteoarthritis of both knees M17.0 Active 360697539 Problem Tobacco dependence F17.200 Active 10298888 Problem Other chronic pain G89.29 Active 20431387 Problem Drug-induced erectile dysfunction N52.2 Active 886466920 Problem Lumbago with sciatica, right side M54.41 Active 589678302 Problem Pre-diabetes R73.03 Active 780436173 ALLERGIES No Information ENCOUNTERS Encounter Location Date Diagnosis [facility] [id number] [place] [address] 99555- 5218 Jan, [facility] [id number] [place] [address] 33026- 5132 Nov, [facility] [id number] [place] [address] 14432- 6531 Nov, Primary osteoarthritis of both knees M17.0 [facility] [id number] [place] [address] 29390- 6232 Sep, [facility] [id number] [place] [address] 46771- 9709 Sep, [facility] [id number] [place] [address] 31764- 5290 Sep, Primary osteoarthritis of both knees M17.0 ; Lumbago with sciatica, right side M54.41 ; Pre-diabetes R73.03 and Tobacco dependence F17.200 [facility] [id number] [place] [address] 03475- 7212 Aug, [facility] [id number] [place] [address] 98375- 8044 Aug, [facility] [id number] [place] [address] 11355- 1818 Aug, [facility] [id number] [place] [address] 69833- 6635 Aug, Primary osteoarthritis of both knees M17.0 ; Abnormal blood creatinine level R79.9 ; Lumbago with sciatica, right side M54.41 and Pre- diabetes R73.03 [facility] [address] [place] [address] 80000- 7837 July, Bipolar 2 disorder F31.81 ; JAKE (generalized anxiety disorder) F41.1 and Tobacco dependence F17.200 [facility] [id number] [place] [address] 40710- 9413 July, [facility] [id number] [place] [address] 38936- 7000 Jun, [facility] [address] [place] [address] 41297- 5854 Jun, [facility] [address] [place] [address] 60212- 0947 Jun, Abnormal blood creatinine level R79.9 [facility] [id number] [place] [address] 29413- 4126 Jun, Pre-diabetes R73.03 and Primary osteoarthritis of both knees M17.0 [facility] [address] [place] [address] 18855- 3799 Jun, Pre-diabetes R73.03 ; Other chronic pain G89.29 ; Primary osteoarthritis of both knees M17.0 ; Drug-induced erectile dysfunction N52.2 and Tobacco dependence F17.200 [facility] [id number] [address]- 3368 May, [facility] [address] [place] [address] 58741- 8886 May, [facility] [address], [place] [address]- 8576 May, [facility] [id number] [place] [address] 99577- 4976 May, [facility] [id number] [place] [address] 03040- 7575 May, [facility] [id number] [place] [address] 21854- 8876 May, [facility] [address] [place] [address] 55866- 3813 May, Bipolar 2 disorder F31.81 ; JAKE (generalized anxiety disorder) F41.1 and Tobacco dependence F17.200 [facility] [address], [place] [address]- 4125 Jan, [facility] [id number] [place] [address] 42675- 7271 Jan, [facility] [address], [place] [address]- 4177 Dec, [facility] [address] [place] [address] 28213- 2976 Dec, [facility] [address], [place] [address]- 2547 Nov, [facility] [id number] [place] [address] 30301 2543 Nov, Other chronic pain G89.29 and Pain in left shoulder M25.512 [facility] [address] [address] 2546 05 Nov, 2016 Bipolar 2 disorder F31.81 and JAKE (generalized anxiety disorder) F41.1 [facility] [address], [place] [address]- 5692 Oct, Pre-diabetes R73.03 and Left anterior shoulder pain M25.512 [facility] [id number] [place] [address] 95529- 8671 Sep, 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 [id number] [place] [address] 20702- 0022 May, Low back pain M54.5 ; Pain in right knee M25.561 ; Pain in left knee M25.562 and Pre-diabetes R73.03 [facility] [id number] [place] [address] 77357- 2737 May, [facility] [id number] [place] [address] 60461- 8657 May, [facility] [id number] [place] [address] 35357- 1615 May, Drug-induced erectile dysfunction N52.2 [facility] [id number] [place] [address] 98587- 7165 Mar, [facility] [id number] [place] [address] 29893- 8940 Mar, [facility] [id number] [place] [address] 34374- 6298 Mar, Encounter for routine adult health examination with abnormal findings Z00.01 ; Low back pain M54.5 ; Other chronic pain G89.29 ; Pain in right knee M25.561 ; Pain in left knee M25.562 ; Family history of diabetes mellitus Z83.3 and Drug-induced erectile dysfunction N52.2 [facility] [id number] [place] [address] 45030- 6526 Mar, Bipolar 2 disorder F31.81 and JAKE (generalized anxiety disorder) F41.1 [facility] [id number] [place] [address] 56587- 4369 Mar, [facility] [id number] [place] [address] 46598- 1098 Feb, [facility] [id number] [place] [address] 24561- 7117 Feb, [facility] [id number] [place] [address] 75822- 2318 Jan, [facility] [id number] [place] [address] 42660- 9581 Dec, [facility] [id number] [place] [address] 25265- 2613 Dec, [facility] [id number] [place] [address] 01291- 7188 Dec, Bipolar 2 disorder F31.81 and JAKE (generalized anxiety disorder) F41.1 [facility] [id number] [place] [address] 57333- 2546 Nov, [facility] [id number] [place] [address] 60132- 4038 Oct, Bipolar 2 disorder F31.81 and JAKE (generalized anxiety disorder) F41.1 [facility] [id number] [place] [address] 79285- 2546 Oct, Anxiety, generalized F41.1 [facility] [address] [place] [address]- 7041 Oct, Generalized anxiety disorder F41.1 and Excessive excitability/irritability with unrest R45.89 [facility] [id number] [place] [address] 25937- 4946 Oct, [facility] [id number] [place] [address] 14734- 6034 Sep, [facility] [address] 23090- 9901 July, 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 [id number] [place] [address] 16995- 2948 July, [facility] [id number] [place] [address] 75705- 0136 July, Generalized anxiety disorder F41.1 [facility] [id number] [place] [address] 50140- 2416 May, [facility] [id number] [place] [address] 32573- [address]448 May, [facility] [id number] [place] [address] 18736- 7413 Mar, [facility] [id number] [place] [address] 0[address]- [address] Feb, [facility] [id number] [place] [address] 45094- [address]1 Jan, [facility] [id number] [place] [address] 5[address]00- 8501 Jan, Generalized anxiety disorder F41.1 and Encounter for observation for other suspected diseases and conditions ruled out Z03.89 [facility] [id number] [place] [address] 88537- 1733 Jan, Generalized anxiety disorder F41.1 [facility] [address] [facility] [id number] [address] Jan, [facility] [address] [id number] [address] Dec, Generalized anxiety disorder F41.1 [facility] [address] [facility] [id number] [address] Dec, Family history of pinworm infection Z83.1 [facility] [address] [facility] [id number], [place] [address] Nov, Generalized anxiety disorder 300.02 ; No condition on Ambrose II V71.09 and Back problem 724.9 IMMUNIZATIONS No Known Immunizations SOCIAL HISTORY Never Assessed REASON FOR VISIT xanax refill PLAN OF CARE VITAL SIGNS MEDICATIONS Medication Instructions Dosage Frequency Start Date End Date Duration Status Xanax 1 MG Orally take at bedtime [...] Hospitalization History Surgeries Hospitalization History Disc dislocation- [facility]
--- OUTSIDE RECORDS SUMMARY | 2018-06-19 07:45 | XMS REPORT ---
Author Author YANDY WATT Organization [facility] Address [address] [place] [address] Care Team Providers Care Yarn Skeins Examiner Name Role Phone YANDY WATT Unavailable PROBLEMS Type Condition ICD9-CM Code [id number] Code Onset Dates Condition Status SNOMED Code Problem Bipolar 2 disorder F31.81 Active 27260625 Problem Drug-induced erectile dysfunction N52.2 Active 654713448 Problem JAKE (generalized anxiety disorder) F41.1 Active 75632261 Problem Arthritis of knee, right M17.11 Active 5897266151904508 Problem Primary osteoarthritis of both knees M17.0 Active 974537601 Problem Pre-diabetes R73.03 Active 691702505 Problem Other chronic pain G89.29 Active 59034810 Problem Tobacco dependence F17.200 Active 06451569 Problem Lumbago with sciatica, right side M54.41 Active 988446278 ALLERGIES No Known Allergies ENCOUNTERS Encounter Location Date Diagnosis [facility] [id number] [place] [address] 23174- 9478 Jan, [facility] [id number] [place] [address] 76968- 3237 Dec, Primary osteoarthritis of both knees M17.0 [facility] [id number] [place] [address] 47396- 8892 Dec, Lumbago with sciatica, right side M54.41 ; Arthritis of knee , right M17.11 and Encounter for immunization Z23 [facility] [id number] [place] [address] 41766- 8013 Dec, [facility] [id number] [place] [address] 04885- 9525 Dec, [facility] [address] [address]- 4815 Dec, [facility] [address] [address] Dec, Primary osteoarthritis of both knees M17.0 [facility] [address], [place] [address] 0188 Nov, [facility] [address], [place] [address] 4582 Nov, Primary osteoarthritis of both knees M17.0 [facility] [address], [place] [address] 47[address] Sep, [facility] [id number] [place] [address] 68737- 9193 Sep, [facility] [address], [place] [address] 4[address] Sep, Primary osteoarthritis of both knees M17.0 ; Lumbago with sciatica, right side M54.41 ; Pre-diabetes R73.03 and Tobacco dependence F17.200 [facility] [address], [place] [address] 115[address] Aug, [facility] [address] [place] [address] 12298- 2455 Aug, [facility] [address], [place] [address] 6581 Aug, [facility] [address] [address] 8194 Aug, Primary osteoarthritis of both knees M17.0 ; Abnormal blood creatinine level R79.9 ; Lumbago with sciatica, right side M54.41 and Pre- diabetes R73.03 [facility] [address], [place] [address] 3[address] July, Bipolar 2 disorder F31.81 ; JAKE (generalized anxiety disorder) F41.1 and Tobacco dependence F17.200 [facility] [id number] [address] 3169 July, [facility] [id number] [place] [address] 16756- 8493 Jun, [facility] [id number] [place] [address] 37211- 7127 Jun, [facility] [id number] [place] [address] 81665- 2761 Jun, Abnormal blood creatinine level R79.9 [facility] [id number] [place] [address] 27597- 9464 Jun, Pre-diabetes R73.03 and Primary osteoarthritis of both knees M17.0 [facility] [id number] [place] [address] 84388- 8786 Jun, Pre-diabetes R73.03 ; Other chronic pain G89.29 ; Primary osteoarthritis of both knees M17.0 ; Drug-induced erectile dysfunction N52.2 and Tobacco dependence F17.200 [facility] [id number] [place] [address] 51503- 3439 May, [facility] [id number] [place] [address] 87978- 7316 May, [facility] [id number] [place] [address] 65522- 2600 May, [facility] [id number] [place] [address] 01229- 8351 May, [facility] [address] [place] [address] 49749- 9047 May, [facility] [id number] [place] [address] 13587- 3124 May, [facility] [address] [place] [address] 43771- 9636 May, Bipolar 2 disorder F31.81 ; JAKE (generalized anxiety disorder) F41.1 and Tobacco dependence F17.200 [facility] [address] [place] [address] 98659- 8953 Jan, [facility] [id number] [place] [address] 22157- 9588 Jan, [facility] [id number] [place] [address] 08305- 9941 Dec, [facility] [address] 59000- 2658 Dec, [facility] [id number] [place] [address] 84493- 3364 Nov, [facility] [id number] [place] [address] 83489- 6752 Nov, Other chronic pain G89.29 and Pain in left shoulder M25.512 [facility] [id number] [place] [address] 47769- 7417 Nov, Bipolar 2 disorder F31.81 and JAKE (generalized anxiety disorder) F41.1 [facility] [id number] [place] [address] 92170- 1828 Oct, Pre-diabetes R73.03 and Left anterior shoulder pain M25.512 [facility] [id number] [place] [address] 11185- 2764 Sep, [facility] [id number] [place] [address] 02866- 0052 July, Lumbago with sciatica, right side M54.41 ; Left anterior shoulder pain M25.512 and Pain in right knee M25.561 [facility] [id number] [place] [address] 84232- 4717 Jun, [facility] [id number] [place] [address] 40838- 5101 Jun, custodial 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 ; Bipolar 2 disorder F31.81 and JAKE (generalized anxiety disorder) F41.1 [facility] [id number] [place] [address] 59521- 2382 May, Low back pain M54.5 ; Pain in right knee M25.561 ; Pain in left knee M25.562 and Pre-diabetes R73.03 [facility] [id number] [place] [address] 03055- 6351 May, [facility] [id number] [place] [address] 99039- 5389 May, [facility] [id number] [place] [address] 18496- 7342 May, Drug-induced erectile dysfunction N52.2 [facility] [id number] [place] [address] 75878- 2505 Mar, [facility] [id number] [place] [address] 34202- 0352 Mar, [facility] [id number] [place] [address] 23460- 2304 Mar, Encounter for routine adult health examination with abnormal findings Z00.01 ; Low back pain M54.5 ; Other chronic pain G89.29 ; Pain in right knee M25.561 ; Pain in left knee M25.562 ; Family history of diabetes mellitus Z83.3 and Drug-induced erectile dysfunction N52.2 [facility] [id number] [place] [address] 28331- 8811 Mar, Bipolar 2 disorder F31.81 and JAKE (generalized anxiety disorder) F41.1 [facility] [id number] [place] [address] 06873- 0829 Mar, [facility] [id number] [place] [address] 90942- 4624 Feb, [facility] [id number] [place] [address] 97921- 4811 Feb, [facility] [id number] [place] [address] 16478- 8860 Jan, [facility] [address], [place] [address]- 2493 Dec, [facility] [id number] [place] [address] 80071- 4473 Dec, [facility] [id number] [place] [address] 73308- 9877 Dec, Bipolar 2 disorder F31.81 and JAKE (generalized anxiety disorder) F41.1 [facility] [id number] [place] [address] 24228- 1453 Nov, [facility] [id number] [place] [address] 77211- 5876 Oct, Bipolar 2 disorder F31.81 and JAKE (generalized anxiety disorder) F41.1 [facility] [id number] [place] [address] 43543- 8273 Oct, Anxiety, generalized F41.1 [facility] [id number] [place] [address] 89131- 3778 Oct, Generalized anxiety disorder F41.1 and Excessive excitability/irritability with unrest R45.89 [facility] [id number] [place] [address] 51548- 0338 Oct, [facility] [id number] [place] [address] 94398- 0119 Sep, [facility] [id number] [place] [address] 04099- 2491 July, [facility] [id number] [place] [address] 64864- 8050 July, 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 and Excessive excitability/ irritability with unrest R45.89 [facility] [address] [place] [address] 51517- 5542 July, [facility] [id number] [place] [address] 40167- 8911 July, Generalized anxiety disorder F41.1 [facility] [address] [place] [address] 66282- 5118 May, [facility] [id number] [place] [address] 94454- 3731 May, [facility] [id number] [place] [address] 01790- 9597 Mar, [facility] [id number] [place] [address] 07099- 0284 Feb, [facility] [id number] [place] [address] 15946- 9507 Jan, [facility] [id number] [place] [address] 18570- 7644 Jan, Generalized anxiety disorder F41.1 and Encounter for observation for other suspected diseases and conditions ruled out Z03.89 [facility] [id number] [place] [address] 13605- 1818 Jan, Generalized anxiety disorder F41.1 [facility] [id number] [place] [address] 30336- 7618 Jan, [facility] [id number] [place] [address] 80231- 5865 Dec, Generalized anxiety disorder F41.1 [facility] [id number] [place] [address] 07147- 2043 Dec, Family history of pinworm infection Z83.1 [facility] [address] [place] [address] 03218- 0477 Nov, Generalized anxiety disorder 300.02 ; No condition on [place] II V71.09 and Back problem 724.9 IMMUNIZATIONS Vaccine Route Administration Date Status FLULAVAL QUAD 0.5ML (6 MO & UP) 2018 IM Intramuscular Jan 15, 2018 Administered SOCIAL HISTORY Never Assessed REASON FOR VISIT Arthritis f/u - Julisa ROQUE , pain medication does help but doesnt really help Julisa ROQUE PLAN OF CARE Activity Details Follow Up 3 Months Reason: VITAL SIGNS Height 72 in 2018-01-15 Weight 201.5 lbs 2018-01-15 Temperature 98.0 degrees Fahrenheit 2018-01-15 Heart Rate 98 bpm 2018-01-15 Respiratory Rate 20 2018-01-15 BMI 27.33 kg/m2 2018-01-15 Blood pressure systolic 118 mmHg 2018-01-15 Blood pressure diastolic 68 mmHg 2018-01-15 MEDICATIONS Medication Instructions Dosage Frequency Start Date End Date Duration Status Tramadol HCl 50 mg Orally 3 times a day 1 tablet as needed 8h 07 Aug, 2017 Active Viagra 25 MG Orally Once a day 1-2 tablet daily as needed before sexual activitiy 24h 5 Active Metformin HCl 500 mg 1 tablet with meals 12h 90 Active Seroquel 100 mg Orally at bedtime 1 tablet Oct, Active Xanax XR 3 MG Orally Once a day for anxiety 1 tablet Mar, 30 days Active Xanax 1 MG Orally take at bedtime 1 tablet Mar, 30 days Active Lamictal 200 mg Orally Once a day 1 tablet 24h Oct, Active RESULTS No Results PROCEDURES Procedure Date Ordered Result Body Site FLULAVAL QUAD 0.5ML (6 MO AND UP) 2017Jan 15, 2018 SINGLE IMMUNIZATION ADMIN Jan 15, 2018 INSTRUCTIONS MEDICATIONS ADMINISTERED No Known Medications MEDICAL (GENERAL) HISTORY Type Description Date Medical History Anxiety Medical History depression Medical History Bilateral knee pain-needing repair Medical History Disc herniation in lumbar spine Medical History Fractured clavicle-healed incorrectly Surgical History Right shoulder rotator cuff repair Surgical History Left Shoulder reconstruction 2017 Hospitalization History Surgeries Hospitalization History Disc dislocation- [facility]
--- OUTSIDE RECORDS SUMMARY | 2018-06-19 07:45 | XMS REPORT ---
Author Author YANDY WATT Organization [facility] Address [address] [place] [address] Care Team Providers Care Operations Scheduler Name Role Phone YANDY WATT Unavailable PROBLEMS Type Condition ICD9-CM Code XIH08-EH Code Onset Dates Condition Status SNOMED Code Problem JAKE (generalized anxiety disorder) F41.1 Active 64865453 Problem Bipolar 2 disorder F31.81 Active 30653088 Problem Primary osteoarthritis of both knees M17.0 Active 155458446 Problem Tobacco dependence F17.200 Active 40146229 Problem Other chronic pain G89.29 Active 56488606 Problem Drug-induced erectile dysfunction N52.2 Active 464362655 Problem Lumbago with sciatica, right side M54.41 Active 329169495 Problem Pre-diabetes R73.03 Active 824072637 ALLERGIES No Information ENCOUNTERS Encounter Location Date Diagnosis [facility] [id number] [place] [address] 02569- 9567 Jan, [facility] [id number] [place] [address] 55659- 6869 Nov, [facility] [id number] [place] [address] 90561- 4546 Nov, Primary osteoarthritis of both knees M17.0 [facility] [id number] [place] [address] 94846- 3750 Sep, [facility] [id number] [place] [address] 59026- 9658 Sep, [facility] [id number] [place] [address] 38478- 2946 Sep, Primary osteoarthritis of both knees M17.0 ; Lumbago with sciatica, right side M54.41 ; Pre-diabetes R73.03 and Tobacco dependence F17.200 [facility] [id number] [place] [address] 69110- 9891 Aug, [facility] [id number] [place] [address] 26098- 7443 Aug, [facility] [id number] [place] [address] 31375- 0354 Aug, [facility] [id number] [place] [address] 02004- 7203 Aug, Primary osteoarthritis of both knees M17.0 ; Abnormal blood creatinine level R79.9 ; Lumbago with sciatica, right side M54.41 and Pre- diabetes R73.03 [facility] [id number] [place] [address] 23817- 8676 July, Bipolar 2 disorder F31.81 ; JAKE (generalized anxiety disorder) F41.1 and Tobacco dependence F17.200 [facility] [id number] [place] [address] 81361- 3762 July, [facility] [id number] [place] [address] 46774- 8712 Jun, [facility] [id number] [place] [address] 48657- 6372 Jun, [facility] [address] [place] [address] 93798- 7615 Jun, Abnormal blood creatinine level R79.9 [facility] [address] [place] [address] 79986- 7079 Jun, Pre-diabetes R73.03 and Primary osteoarthritis of both knees M17.0 [facility] [address] [place] [address] 65438- 3747 Jun, Pre-diabetes R73.03 ; Other chronic pain G89.29 ; Primary osteoarthritis of both knees M17.0 ; Drug-induced erectile dysfunction N52.2 and Tobacco dependence F17.200 [facility] [id number] [address]- 6188 May, [facility] [address] [place] [address] 58994- 1406 May, [facility] [address] [address]- 0916 May, [facility] [id number] [place] [address] 64513- 4286 May, [facility] [id number] [place] [address] 28106- 1422 May, [facility] [id number] [place] [address] 94946- 9506 May, [facility] [address] [place] [address] 27459- 4230 May, Bipolar 2 disorder F31.81 ; JAKE (generalized anxiety disorder) F41.1 and Tobacco dependence F17.200 [facility] [address] [address]- 3937 Jan, [facility] [id number] [place] [address] 44930- 9268 Jan, [facility] [address] [address]- 1942 Dec, [facility] [address] [place] [address] 57895- 0476 Dec, [facility] [address] [address]- 254 Nov, [facility] [id number] [place] [address] 45456 2540 Nov, Other chronic pain G89.29 and Pain in left shoulder M25.512 [facility] [address] [address] 2546 05 Nov, 2016 Bipolar 2 disorder F31.81 and JAKE (generalized anxiety disorder) F41.1 [facility] [address] [address]- 2326 Oct, Pre-diabetes R73.03 and Left anterior shoulder pain M25.512 [facility] [id number] [place] [address] 59856- 1334 Sep, [facility] [id number] [place] [address] 14827- 4612 July, Lumbago with sciatica, right side M54.41 ; Left anterior shoulder pain M25.512 and Pain in right knee M25.561 [facility] [id number] [place] [address] 07832- 9534 Jun, [facility] [id number] [place] [address] 52984- 1216 Jun, alf 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 ; Bipolar 2 disorder F31.81 and JAKE (generalized anxiety disorder) F41.1 [facility] [id number] [place] [address] 26162- 2667 May, Low back pain M54.5 ; Pain in right knee M25.561 ; Pain in left knee M25.562 and Pre-diabetes R73.03 [facility] [id number] [place] [address] 96547- 0262 May, [facility] [id number] [place] [address] 48461- 2381 May, [facility] [id number] [place] [address] 50748- 3251 May, Drug-induced erectile dysfunction N52.2 [facility] [id number] [place] [address] 96625- 4587 Mar, [facility] [id number] [place] [address] 08531- 9690 Mar, [facility] [id number] [place] [address] 20352- 1328 Mar, Encounter for routine adult health examination with abnormal findings Z00.01 ; Low back pain M54.5 ; Other chronic pain G89.29 ; Pain in right knee M25.561 ; Pain in left knee M25.562 ; Family history of diabetes mellitus Z83.3 and Drug-induced erectile dysfunction N52.2 [facility] [id number] [place] [address] 23116- 4886 Mar, Bipolar 2 disorder F31.81 and JAKE (generalized anxiety disorder) F41.1 [facility] [id number] [place] [address] 21988- 1291 Mar, [facility] [id number] [place] [address] 88241- 9790 Feb, [facility] [id number] [place] [address] 87931- 0465 Feb, [facility] [id number] [place] [address] 07551- 5551 Jan, [facility] [id number] [place] [address] 46589- 5160 Dec, [facility] [id number] [place] [address] 69236- 5979 Dec, [facility] [id number] [place] [address] 75734- 1769 Dec, Bipolar 2 disorder F31.81 and JAKE (generalized anxiety disorder) F41.1 [facility] [id number] [place] [address] 02477- 2546 Nov, [facility] [id number] [place] [address] 37755- 6407 Oct, Bipolar 2 disorder F31.81 and JAKE (generalized anxiety disorder) F41.1 [facility] [id number] [place] [address] 45181- 2546 Oct, Anxiety, generalized F41.1 [facility] [address] [place] [address]- 0909 Oct, Generalized anxiety disorder F41.1 and Excessive excitability/irritability with unrest R45.89 [facility] [id number] [place] [address] 48369- 5363 Oct, [facility] [id number] [place] [address] 13416- 3986 Sep, [facility] [address] 28378- 6007 July, [facility] [id number] [place] [address] 91967- 7550 July, 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 and Excessive excitability/ irritability with unrest R45.89 [facility] [id number] [place] [address] 42021- 5594 July, [facility] [id number] [place] [address] 51019- 5011 July, Generalized anxiety disorder F41.1 [facility] [id number] [place] [address] 50306- 1404 May, [facility] [id number] [place] [address] 94927- 2190 May, [facility] [id number] [place] [address] 41587- 6835 Mar, [facility] [id number] [place] [address] 94023- 0138 Feb, [facility] [id number] [place] [address] 58736- 7286 Jan, [facility] [id number] [place] [address] 83573- 9254 Jan, Generalized anxiety disorder F41.1 and Encounter for observation for other suspected diseases and conditions ruled out Z03.89 [facility] [id number] [place] [address] 16531- 5736 Jan, Generalized anxiety disorder F41.1 [facility] [address] [facility] [id number] Jan, [facility] [address] [facility] [id number] [address]- 6950 Dec, Generalized anxiety disorder F41.1 [facility] [address] [facility] [id number] 8395 Dec, Family history of pinworm infection Z83.1 [facility] [address] [facility] [id number] [address]- 2509 Nov, Generalized anxiety disorder 300.02 ; No condition on [place] II V71.09 and Back problem 724.9 IMMUNIZATIONS [...] Hospitalization History Surgeries Hospitalization History Disc dislocation- [facility]
--- OUTSIDE RECORDS SUMMARY | 2018-06-19 07:46 | XMS REPORT ---
Author Author ALEYDA PECK [facility] Address [address] [place] [address] Care Team Providers Care Administrative Sales Assistant Name Role Phone CISCO ALEYDA Unavailable PROBLEMS Type Condition ICD9-CM Code QIP09-JP Code Onset Dates Condition Status SNOMED Code Problem JAKE (generalized anxiety disorder) F41.1 Active 28460185 Problem Bipolar 2 disorder F31.81 Active 98268106 Problem Primary osteoarthritis of both knees M17.0 Active 282496027 Problem Tobacco dependence F17.200 Active 15522773 Problem Other chronic pain G89.29 Active 55657007 Problem Drug-induced erectile dysfunction N52.2 Active 485149982 Problem Lumbago with sciatica, right side M54.41 Active 896363184 Problem Pre-diabetes R73.03 Active 065777607 ALLERGIES No Information ENCOUNTERS Encounter Location Date Diagnosis [facility] [id number] [place] [address] 97479- 2280 Jan, [facility] [id number] [place] [address] 06907- 1214 Sep, [facility] [id number] [place] [address] 25625- 0746 Sep, [facility] [address] 79535- 1626 Sep, Primary osteoarthritis of both knees M17.0 ; Lumbago with sciatica, right side M54.41 ; Pre-diabetes R73.03 and Tobacco dependence F17.200 [facility] [id number] [place] [address] 58665- 5577 Aug, [facility] [id number] [place] [address] 15328- 2568 Aug, [place] [id number] [place] [address] 65125- 8241 Aug, [facility] [id number] [place] [address] 60504- 5685 Aug, Primary osteoarthritis of both knees M17.0 ; Abnormal blood creatinine level R79.9 ; Lumbago with sciatica, right side M54.41 and Pre- diabetes R73.03 [facility] [address] 25135- 3431 July, Bipolar 2 disorder F31.81 ; JAKE (generalized anxiety disorder) F41.1 and Tobacco dependence F17.200 [facility] [address] 43415- 2909 July, [facility] [address] 65014- 5523 Jun, [facility] [id number] [place] [address] 85386- 0789 Jun, [facility] [id number] [place] [address] 72068- 6514 Jun, Abnormal blood creatinine level R79.9 [facility] [id number] [place] [address] 16630- 0191 Jun, Pre-diabetes R73.03 and Primary osteoarthritis of both knees M17.0 [facility] [id number] [place] [address] 62181- 6219 Jun, Pre-diabetes R73.03 ; Other chronic pain G89.29 ; Primary osteoarthritis of both knees M17.0 ; Drug-induced erectile dysfunction N52.2 and Tobacco dependence F17.200 [facility] [id number] [place] [address] 40163- 1643 May, [facility] [id number] [place] [address] 27437- 9968 May, [facility] [id number] [place] [address] 91702- 3889 May, [facility] [id number] [place] [address] 17367- 4261 May, [facility] [id number] [place] [address] 86400- 3256 May, [facility] [id number] [place] [address] 58440- 6936 May, [facility] [id number] [place] [address] 04673- 9871 May, Bipolar 2 disorder F31.81 ; JAKE (generalized anxiety disorder) F41.1 and Tobacco dependence F17.200 [facility] [id number] [place] [address] 51687- 3316 Jan, [facility] [id number] [place] [address] 88766- 1932 Jan, [facility] [id number] [place] [address] 14653- 1065 Dec, [facility] [id number] [place] [address] 99491- 3870 Dec, [facility] [id number] [place] [address] 88559- 1007 Nov, [facility] [id number] [place] [address] 13191- 8690 25 Nov, 2016 Other chronic pain G89.29 and Pain in left shoulder M25.512 [facility] [id number] [place] [address] 78588- 0483 05 Nov, 2016 Bipolar 2 disorder F31.81 and JAKE (generalized anxiety disorder) F41.1 [facility] [id number] [place] [address] 05254- 2396 04 Oct, 2016 Pre-diabetes R73.03 and Left anterior shoulder pain M25.512 [facility] [id number] [place] [address] 82173- 0261 Sep, [place] [place] [address] [place] [address] 88131- 7055 July, Lumbago with sciatica, right side M54.41 ; Left anterior shoulder pain M25.512 and Pain in right knee M25.561 [place] [id number] [place] [address] 56890- 4393 Jun, [place] [id number] [place] [address] 96203- 4544 Jun, [facility] 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 ; Bipolar 2 disorder F31.81 and JAKE (generalized anxiety disorder) F41.1 [place] [id number] [place] [address] 58057- 1092 May, Low back pain M54.5 ; Pain in right knee M25.561 ; Pain in left knee M25.562 and Pre-diabetes R73.03 [place] [id number] [place] [address] 15012- 0176 May, [place] [id number] [place] [address] 13031- 7739 May, [place] [id number] [place] [address] 08297- 0177 May, Drug-induced erectile dysfunction N52.2 [place] [id number] [place] [address] 07548- 2840 Mar, [place] [id number] [place] [address] 04829- 8159 Mar, [place] [id number] [place] [address] 36293- 7978 Mar, Encounter for routine adult health examination with abnormal findings Z00.01 ; Low back pain M54.5 ; Other chronic pain G89.29 ; Pain in right knee M25.561 ; Pain in left knee M25.562 ; Family history of diabetes mellitus Z83.3 and Drug-induced erectile dysfunction N52.2 [facility] [id number] [place] [address] 72599- 7912 Mar, Bipolar 2 disorder F31.81 and JAKE (generalized anxiety disorder) F41.1 [facility] [id number] [place] [address] 64404- 9883 Mar, [facility] [id number] [place] [address] 53047- 7785 Feb, [facility] [id number] [place] [address] 27791- 1872 Feb, [facility] [id number] [place] [address] 01544- 3467 Jan, [facility] [id number] [place] [address] 74141- 1217 Dec, [facility] [id number] [place] [address] 09711- 7634 Dec, [facility] [id number] [place] [address] 59083- 0898 Dec, Bipolar 2 disorder F31.81 and JAKE (generalized anxiety disorder) F41.1 [facility] [id number] [place] [address] 52845- 4877 Nov, [facility] [id number] [place] [address] 09828- 7372 Oct, Bipolar 2 disorder F31.81 and JAKE (generalized anxiety disorder) F41.1 [facility] [id number] [place] [address] 33194- 6821 Oct, Anxiety, generalized F41.1 [facility] [id number] [place] [address] 10864- 4493 Oct, Generalized anxiety disorder F41.1 and Excessive excitability/irritability with unrest R45.89 [facility] [id number] [place] [address] 06026- 1675 Oct, [facility] [address] [place] [address] 30569- 9128 Sep, [facility] [id number] [place] [address] 77349- 4263 July, [facility] [id number] [place] [address] 12931- 0809 July, 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 and Excessive excitability/ irritability with unrest R45.89 [facility] [id number] [place] [address] 54856- 0441 July, [facility] [id number] [place] [address] 25920- 0818 July, Generalized anxiety disorder F41.1 [facility] [id number] [place] [address] 27581- 5781 May, [facility] [id number] [place] [address] 56633- 3066 May, [facility] [id number] [place] [address] 78088- 4357 Mar, [facility] [id number] [place] [address] 86816- 7954 Feb, [facility] [id number] [place] [address] 40677- 0779 Jan, [facility] [id number] [place] [address] 05827- 8078 Jan, Generalized anxiety disorder F41.1 and Encounter for observation for other suspected diseases and conditions ruled out Z03.89 [facility] [id number] [place] [address] 57999- 1616 Jan, Generalized anxiety disorder F41.1 [facility] [id number] [place] [address] 47066- 8385 Jan, [facility] [id number] [place] [address] 58691- 0012 Dec, Generalized anxiety disorder F41.1 [facility] [address] [facility] [id number] [place] [address]- 2630 Dec, Family history of pinworm infection Z83.1 [facility] [address] [facility] [id number] [place] [address]- 9216 Nov, Generalized anxiety disorder 300.02 ; No condition on [place] II V71.09 and Back problem 724.9 IMMUNIZATIONS [...] Hospitalization History Surgeries [facility]
--- OUTSIDE RECORDS SUMMARY | 2018-06-19 07:46 | XMS REPORT ---
Author Author ALEYDA PECK [facility] Address [address] [place] [address] Care Team Providers Care Server Cashier Name Role Phone CISCO ALEYDA Unavailable PROBLEMS Type Condition ICD9-CM Code EUH88-HG Code Onset Dates Condition Status SNOMED Code Problem JAKE (generalized anxiety disorder) F41.1 Active 38966677 Problem Bipolar 2 disorder F31.81 Active 46682743 Problem Primary osteoarthritis of both knees M17.0 Active 370266815 Problem Tobacco dependence F17.200 Active 04195991 Problem Other chronic pain G89.29 Active 21708075 Problem Drug-induced erectile dysfunction N52.2 Active 858701139 Problem Lumbago with sciatica, right side M54.41 Active 501874529 Problem Pre-diabetes R73.03 Active 571471938 ALLERGIES No Information ENCOUNTERS Encounter Location Date Diagnosis [facility] [id number] [place] [address] 24525- 5327 Jan, [facility] [id number] [place] [address] 55040- 7417 Sep, [facility] [id number] [place] [address] 99164- 4963 Sep, [facility] [address] 44915- 4921 Sep, Primary osteoarthritis of both knees M17.0 ; Lumbago with sciatica, right side M54.41 ; Pre-diabetes R73.03 and Tobacco dependence F17.200 [facility] [id number] [place] [address] 02386- 6812 Aug, [facility] [id number] [place] [address] 59397- 6274 Aug, [place] [id number] [place] [address] 69669- 5781 Aug, [facility] [id number] [place] [address] 52235- 6225 Aug, Primary osteoarthritis of both knees M17.0 ; Abnormal blood creatinine level R79.9 ; Lumbago with sciatica, right side M54.41 and Pre- diabetes R73.03 [facility] [address] 78174- 7839 July, Bipolar 2 disorder F31.81 ; JAKE (generalized anxiety disorder) F41.1 and Tobacco dependence F17.200 [facility] [address] 50389- 6905 July, [facility] [address] 06768- 4744 Jun, [facility] [id number] [place] [address] 13561- 9080 Jun, [facility] [id number] [place] [address] 91893- 9624 Jun, Abnormal blood creatinine level R79.9 [facility] [id number] [place] [address] 86584- 7913 Jun, Pre-diabetes R73.03 and Primary osteoarthritis of both knees M17.0 [facility] [id number] [place] [address] 82483- 2142 Jun, Pre-diabetes R73.03 ; Other chronic pain G89.29 ; Primary osteoarthritis of both knees M17.0 ; Drug-induced erectile dysfunction N52.2 and Tobacco dependence F17.200 [facility] [id number] [place] [address] 13258- 2971 May, [facility] [id number] [place] [address] 66149- 7614 May, [facility] [address] [place] [address] 69153- 5886 May, [facility] [id number] [place] [address] 34844- 7727 May, [facility] [id number] [place] [address] 69882- 8116 May, [facility] [id number] [place] [address] 34915- 7776 May, [facility] [address] [place] [address] 38804- 9155 May, Bipolar 2 disorder F31.81 ; JAKE (generalized anxiety disorder) F41.1 and Tobacco dependence F17.200 [facility] [id number] [place] [address] 08401- 1043 Jan, [facility] [id number] [place] [address] 96389- 4960 Jan, [facility] [address] [place] [address] 44602- 1672 Dec, [facility] [id number] [place] [address] 12290- 5205 Dec, [facility] [id number] [place] [address] 22444- 2768 Nov, [facility] [address] [place] [address] 40088- 0964 25 Nov, 2016 Other chronic pain G89.29 and Pain in left shoulder M25.512 [facility] [address] [place] [address] 60363- 4774 05 Nov, 2016 Bipolar 2 disorder F31.81 and JAKE (generalized anxiety disorder) F41.1 [facility] [address] [place] [address] 68092- 6048 04 Oct, 2016 Pre-diabetes R73.03 and Left anterior shoulder pain M25.512 [facility] [address] [place] [address] 01336- 4511 Sep, [place] [address] [place] [address] 03640- 0162 July, Lumbago with sciatica, right side M54.41 ; Left anterior shoulder pain M25.512 and Pain in right knee M25.561 [place] [address] [place] [address] 44403- 3767 Jun, [place] [address] [place] [address] 53394- 1605 Jun, [facility] 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 ; Bipolar 2 disorder F31.81 and JAKE (generalized anxiety disorder) F41.1 [place] [address] [place] [address] 71661- 0087 May, Low back pain M54.5 ; Pain in right knee M25.561 ; Pain in left knee M25.562 and Pre-diabetes R73.03 [place] [address] [place] [address] 07372- 8802 May, [place] [address] [place] [address] 87061- 9809 May, [place] [address] [place] [address] 42461- 7191 May, Drug-induced erectile dysfunction N52.2 [place] [address] [place] [address] 24756- 7930 Mar, [place] [address] [place] [address] 92064- 2561 Mar, [place] [address] [place] [address] 29091- 7667 Mar, Encounter for routine adult health examination with abnormal findings Z00.01 ; Low back pain M54.5 ; Other chronic pain G89.29 ; Pain in right knee M25.561 ; Pain in left knee M25.562 ; Family history of diabetes mellitus Z83.3 and Drug-induced erectile dysfunction N52.2 [facility] [address] [place] [address] 00276- 3759 Mar, Bipolar 2 disorder F31.81 and JAKE (generalized anxiety disorder) F41.1 [facility] [address] [place] [address] 90606- 7197 Mar, [facility] [address] [place] [address] 10905- 5387 Feb, [facility] [address] [place] [address] 30663- 3145 Feb, [facility] [address] [place] [address] 29412- 8688 Jan, [facility] [address] [place] [address] 86158- 3409 Dec, [facility] [address] [place] [address] 31191- 8965 Dec, [facility] [address] [place] [address] 39175- 6909 Dec, Bipolar 2 disorder F31.81 and JAKE (generalized anxiety disorder) F41.1 [facility] [address] [place] [address] 59961- 5621 Nov, [facility] [address] [place] [address] 67501- 1622 Oct, Bipolar 2 disorder F31.81 and JAKE (generalized anxiety disorder) F41.1 [facility] [address] [place] [address] 91839- 5579 Oct, Anxiety, generalized F41.1 [facility] [address] [place] [address] 97721- 0208 Oct, Generalized anxiety disorder F41.1 and Excessive excitability/irritability with unrest R45.89 [facility] [address] [place] [address] 61919- 3733 Oct, [facility] [address] [place] [address] 14841- 9772 Sep, [facility] [address] [place] [address] 29710- 4562 July, [facility] [address] [place] [address] 89730- 3122 July, 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 and Excessive excitability/ irritability with unrest R45.89 [facility] [address] [place] [address] 18849- 1191 July, [facility] [address] [place] [address] 38170- 3748 July, Generalized anxiety disorder F41.1 [facility] [address] [place] [address] 85717- 4598 May, [facility] [address] [place] [address] 86550- 6006 May, [facility] [address] [place] [address] 75067- 1809 Mar, [facility] [address] [place] [address] 67002- 9540 Feb, [facility] [address] [place] [address] 90790- 1957 Jan, [facility] [address] [place] [address] 97575- 5721 Jan, Generalized anxiety disorder F41.1 and Encounter for observation for other suspected diseases and conditions ruled out Z03.89 [facility] [address] [place] [address] 74159- 9764 Jan, Generalized anxiety disorder F41.1 [facility] [address] [place] [address] 79858- 5119 Jan, [facility] [address] [place] [address] 98025- 7254 Dec, Generalized anxiety disorder F41.1 [facility] [address] [facility] [id number] [place] [address]- 0198 Dec, Family history of pinworm infection Z83.1 [facility] [address] [facility] [id number] [place] [address]- 8516 Nov, Generalized anxiety disorder 300.02 ; No condition on [place] V71.09 and Back problem 724.9 IMMUNIZATIONS No Known Immunizations SOCIAL HISTORY Never Assessed REASON FOR VISIT xanax refill PLAN OF CARE VITAL SIGNS MEDICATIONS Medication Instructions Dosage Frequency Start Date End Date Duration Status Xanax XR 3 MG Orally Once a day for anxiety 1 tablet Mar, 30 days Active RESULTS [...] Hospitalization History Surgeries Hospitalization History Disc dislocation- [facility]
--- OUTSIDE RECORDS SUMMARY | 2018-06-19 07:46 | XMS REPORT ---
Author Author YANDY WATT Organization [facility] Address [address] [place] [address] Care Team Providers Care Supervisor [employer] Name Role Phone YANDY WATT Unavailable PROBLEMS Type Condition ICD9-CM Code PMY65-BG Code Onset Dates Condition Status SNOMED Code Problem JAKE (generalized anxiety disorder) F41.1 Active 39198548 Problem Bipolar 2 disorder F31.81 Active 35357994 Problem Primary osteoarthritis of both knees M17.0 Active 788474236 Problem Tobacco dependence F17.200 Active 68837920 Problem Other chronic pain G89.29 Active 62353853 Problem Drug-induced erectile dysfunction N52.2 Active 216791560 Problem Lumbago with sciatica, right side M54.41 Active 879211028 Problem Pre-diabetes R73.03 Active 270362949 ALLERGIES No Information ENCOUNTERS Encounter Location Date Diagnosis [facility] [id number] [place] [address] 26266- 4194 Jan, [facility] [id number] [place] [address] 21114- 7974 Sep, [facility] [id number] [place] [address] 74003- 0794 Sep, [facility] [address] 02052- 4410 Sep, Primary osteoarthritis of both knees M17.0 ; Lumbago with sciatica, right side M54.41 ; Pre-diabetes R73.03 and Tobacco dependence F17.200 [facility] [id number] [place] [address] 89704- 0437 Aug, [facility] [id number] [place] [address] 87448- 5650 Aug, [place] [id number] [place] [address] 85117- 6724 Aug, [facility] [id number] [place] [address] 10766- 5820 Aug, Primary osteoarthritis of both knees M17.0 ; Abnormal blood creatinine level R79.9 ; Lumbago with sciatica, right side M54.41 and Pre- diabetes R73.03 [facility] [address] 72503- 1749 July, Bipolar 2 disorder F31.81 ; JAKE (generalized anxiety disorder) F41.1 and Tobacco dependence F17.200 [facility] [address] 95537- 4726 July, [facility] [address] 28568- 9079 Jun, [facility] [id number] [place] [address] 04846- 5114 Jun, [facility] [id number] [place] [address] 25849- 8362 Jun, Abnormal blood creatinine level R79.9 [facility] [id number] [place] [address] 42553- 6538 Jun, Pre-diabetes R73.03 and Primary osteoarthritis of both knees M17.0 [facility] [id number] [place] [address] 12624- 2827 Jun, Pre-diabetes R73.03 ; Other chronic pain G89.29 ; Primary osteoarthritis of both knees M17.0 ; Drug-induced erectile dysfunction N52.2 and Tobacco dependence F17.200 [facility] [id number] [place] [address] 82290- 9477 May, [facility] [id number] [place] [address] 80177- 9332 May, [facility] [id number] [place] [address] 08838- 6728 May, [facility] [id number] [place] [address] 13882- 4117 May, [facility] [id number] [place] [address] 05417- 1446 May, [facility] [id number] [place] [address] 18502- 7396 May, [facility] [id number] [place] [address] 35926- 3956 May, Bipolar 2 disorder F31.81 ; JAKE (generalized anxiety disorder) F41.1 and Tobacco dependence F17.200 [facility] [id number] [place] [address] 44802- 8335 Jan, [facility] [id number] [place] [address] 74912- 2750 Jan, [facility] [id number] [place] [address] 84746- 6453 Dec, [facility] [id number] [place] [address] 91602- 9324 Dec, [facility] [id number] [place] [address] 79189- 6093 Nov, [facility] [id number] [place] [address] 06376- 2818 25 Nov, 2016 Other chronic pain G89.29 and Pain in left shoulder M25.512 [facility] [id number] [place] [address] 98914- 4683 05 Nov, 2016 Bipolar 2 disorder F31.81 and JAKE (generalized anxiety disorder) F41.1 [facility] [id number] [place] [address] 44540- 6145 04 Oct, 2016 Pre-diabetes R73.03 and Left anterior shoulder pain M25.512 [facility] [id number] [place] [address] 06780- 4119 Sep, [place] [address] [place] [address] 26867- 5436 July, Lumbago with sciatica, right side M54.41 ; Left anterior shoulder pain M25.512 and Pain in right knee M25.561 [place] [id number] [place] [address] 27916- 1794 Jun, [place] [id number] [place] [address] 06425- 5251 Jun, [facility] 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 ; Bipolar 2 disorder F31.81 and JAKE (generalized anxiety disorder) F41.1 [place] [id number] [place] [address] 22924- 7465 May, Low back pain M54.5 ; Pain in right knee M25.561 ; Pain in left knee M25.562 and Pre-diabetes R73.03 [place] [id number] [place] [address] 29403- 4958 May, [place] [id number] [place] [address] 27166- 7049 May, [place] [id number] [place] [address] 00909- 1930 May, Drug-induced erectile dysfunction N52.2 [place] [id number] [place] [address] 92654- 1125 Mar, [place] [id number] [place] [address] 70137- 1547 Mar, [place] [id number] [place] [address] 27144- 0590 Mar, Encounter for routine adult health examination with abnormal findings Z00.01 ; Low back pain M54.5 ; Other chronic pain G89.29 ; Pain in right knee M25.561 ; Pain in left knee M25.562 ; Family history of diabetes mellitus Z83.3 and Drug-induced erectile dysfunction N52.2 [facility] [id number] [place] [address] 89977- 6469 Mar, Bipolar 2 disorder F31.81 and JAKE (generalized anxiety disorder) F41.1 [facility] [id number] [place] [address] 64378- 1398 Mar, [facility] [id number] [place] [address] 20996- 2661 Feb, [facility] [id number] [place] [address] 60151- 1006 Feb, [facility] [id number] [place] [address] 27811- 8364 Jan, [facility] [id number] [place] [address] 58521- 7539 Dec, [facility] [id number] [place] [address] 77913- 4314 Dec, [facility] [id number] [place] [address] 15765- 1431 Dec, Bipolar 2 disorder F31.81 and JAKE (generalized anxiety disorder) F41.1 [facility] [id number] [place] [address] 75686- 8729 Nov, [facility] [id number] [place] [address] 38515- 0930 Oct, Bipolar 2 disorder F31.81 and JAKE (generalized anxiety disorder) F41.1 [facility] [id number] [place] [address] 51230- 6859 Oct, Anxiety, generalized F41.1 [facility] [id number] [place] [address] 35709- 4448 Oct, Generalized anxiety disorder F41.1 and Excessive excitability/irritability with unrest R45.89 [facility] [id number] [place] [address] 17177- 8798 Oct, [facility] [address] [place] [address] 94287- 8061 Sep, [facility] [id number] [place] [address] 12274- 2764 July, [facility] [id number] [place] [address] 79830- 7184 July, 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 and Excessive excitability/ irritability with unrest R45.89 [facility] [id number] [place] [address] 25591- 3129 July, [facility] [id number] [place] [address] 04630- 6348 July, Generalized anxiety disorder F41.1 [facility] [id number] [place] [address] 07365- 9981 May, [facility] [id number] [place] [address] 05012- 1237 May, [facility] [id number] [place] [address] 78647- 5346 Mar, [facility] [id number] [place] [address] 22125- 1497 Feb, [facility] [id number] [place] [address] 50358- 0078 Jan, [facility] [id number] [place] [address] 29312- 3996 Jan, Generalized anxiety disorder F41.1 and Encounter for observation for other suspected diseases and conditions ruled out Z03.89 [facility] [id number] [place] [address] 91447- 2650 Jan, Generalized anxiety disorder F41.1 [facility] [id number] [place] [address] 96789- 0104 Jan, [facility] [id number] [place] [address] 84721- 5666 Dec, Generalized anxiety disorder F41.1 [facility] [address] [facility] [id number] [place] [address]- 7316 Dec, Family history of pinworm infection Z83.1 [facility] [address] [facility] [id number] [place] [address]- 6267 Nov, Generalized anxiety disorder 300.02 ; No condition on [place] II V71.09 and Back problem 724.9 IMMUNIZATIONS No Known Immunizations SOCIAL HISTORY Never Assessed REASON FOR VISIT Prior Authorization Request -- submited PLAN OF CARE VITAL SIGNS MEDICATIONS Unknown [...] Hospitalization History Surgeries Hospitalization History Disc dislocation- [facility]
--- OUTSIDE RECORDS SUMMARY | 2018-06-19 07:46 | XMS REPORT ---
Author Author YANDY WATT Organization [facility] Address [address] [place] [address] Care Team Providers Care Valve Fitter Name Role Phone YANDY WATT Unavailable PROBLEMS Type Condition ICD9-CM Code [id number] Code Onset Dates Condition Status SNOMED Code Problem JAKE (generalized anxiety disorder) F41.1 Active 45367976 Problem Bipolar 2 disorder F31.81 Active 58042494 Problem Primary osteoarthritis of both knees M17.0 Active 783746821 Problem Tobacco dependence F17.200 Active 23375835 Problem Other chronic pain G89.29 Active 11646711 Problem Drug-induced erectile dysfunction N52.2 Active 957666280 Problem Lumbago with sciatica, right side M54.41 Active 938437120 Problem Pre-diabetes R73.03 Active 297367883 ALLERGIES No Known Allergies ENCOUNTERS Encounter Location Date Diagnosis [facility] [address] 61114- 9063 Jan, [facility] [id number] [place] [address] 89253- 5270 Sep, [facility] [id number] [place] [address] 72618- 0560 Sep, [facility] [id number] [place] [address] 88503- 9528 Sep, Primary osteoarthritis of both knees M17.0 ; Lumbago with sciatica, right side M54.41 ; Pre-diabetes R73.03 and Tobacco dependence F17.200 [facility] [id number] [place] [address] 31841- 7146 Aug, [facility] [id number] [place] [address] 03501- 2756 Aug, [facility] [id number] [place] [address] 05530- 9222 Aug, [facility] [id number] [place] [address] 98466- 5333 Aug, Primary osteoarthritis of both knees M17.0 ; Abnormal blood creatinine level R79.9 ; Lumbago with sciatica, right side M54.41 and Pre- diabetes R73.03 [facility] [id number] [place] [address] 60201- 4237 July, Bipolar 2 disorder F31.81 ; JAKE (generalized anxiety disorder) F41.1 and Tobacco dependence F17.200 [facility] [id number] [place] [address] 41891- 1343 July, [facility] [id number] [place] [address] 60160- 2464 Jun, [facility] [id number] [place] [address] 87747- 6778 Jun, [facility] [id number] [place] [address] 24617- 3232 Jun, Abnormal blood creatinine level R79.9 [facility] [id number] [place] [address] 75151- 3594 Jun, Pre-diabetes R73.03 and Primary osteoarthritis of both knees M17.0 [facility] [id number] [place] [address] 68875- 7420 Jun, Pre-diabetes R73.03 ; Other chronic pain G89.29 ; Primary osteoarthritis of both knees M17.0 ; Drug-induced erectile dysfunction N52.2 and Tobacco dependence F17.200 [facility] [id number] [place] [address] 45572- 9957 May, [facility] [id number] [place] [address] 10324- 7899 May, [facility] [id number] [place] [address] 32779- 8927 May, [facility] [id number] [place] [address] 17458- 2984 May, [facility] [id number] [place] [address] 34846- 8862 May, [facility] [id number] [place] [address] 28517- 4446 May, [facility] [id number] [place] [address] 10000- 3310 May, Bipolar 2 disorder F31.81 ; JAKE (generalized anxiety disorder) F41.1 and Tobacco dependence F17.200 [facility] [id number] [place] [address] 34483- 7282 Jan, [facility] [id number] [place] [address] 58280- 6623 Jan, [facility] [id number] [place] [address] 59617- 6581 Dec, [facility] [id number] [place] [address] 81901- 1629 Dec, [facility] [id number] [place] [address] 84115- 2903 27 Nov, 2016 [facility] [id number] [place] [address] 22273- 8196 25 Nov, 2016 Other chronic pain G89.29 and Pain in left shoulder M25.512 [facility] [id number] [place] [address] 71955- 9772 05 Nov, 2016 Bipolar 2 disorder F31.81 and JAKE (generalized anxiety disorder) F41.1 [facility] [id number] [place] [address] 93280- 4383 04 Oct, 2016 Pre-diabetes R73.03 and Left anterior shoulder pain M25.512 [facility] [id number] [place] [address] 58034- 7440 Sep, [place] [id number] [place] [address] 88015- 9170 July, Lumbago with sciatica, right side M54.41 ; Left anterior shoulder pain M25.512 and Pain in right knee M25.561 [place] [id number] [place] [address] 84471- 6515 Jun, [place] [id number] [place] [address] 81845- 9110 Jun, [facility] 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 ; Bipolar 2 disorder F31.81 and JAKE (generalized anxiety disorder) F41.1 [place] [id number] [place] [address] 04020- 2748 May, Low back pain M54.5 ; Pain in right knee M25.561 ; Pain in left knee M25.562 and Pre-diabetes R73.03 [place] [id number] [place] [address] 12484- 0366 May, [place] [id number] [place] [address] 93945- 9586 May, [place] [id number] [place] [address] 86190- 3798 May, Drug-induced erectile dysfunction N52.2 [place] [id number] [place] [address] 46753- 9555 Mar, [place] [id number] [place] [address] 09232- 5392 Mar, [place] [id number] [place] [address] 53890- 7966 Mar, Encounter for routine adult health examination with abnormal findings Z00.01 ; Low back pain M54.5 ; Other chronic pain G89.29 ; Pain in right knee M25.561 ; Pain in left knee M25.562 ; Family history of diabetes mellitus Z83.3 and Drug-induced erectile dysfunction N52.2 [facility] [id number] [place] [address] 47766- 8191 Mar, Bipolar 2 disorder F31.81 and JAKE (generalized anxiety disorder) F41.1 [facility] [id number] [place] [address] 81166- 2148 Mar, [facility] [id number] [place] [address] 55918- 6516 Feb, [facility] [id number] [place] [address] 26653- 1991 Feb, [facility] [address] 51539- 9575 Jan, [facility] [id number] [place] [address] 94283- 6152 Dec, [facility] [address] 72370- 5212 Dec, [facility] [id number] [place] [address] 35136- 1642 Dec, Bipolar 2 disorder F31.81 and JAKE (generalized anxiety disorder) F41.1 [facility] [id number] [place] [address] 60700- 1179 Nov, [facility] [id number] [place] [address] 36347- 7858 Oct, Bipolar 2 disorder F31.81 and JAKE (generalized anxiety disorder) F41.1 [facility] [id number] [place] [address] 22536- 5624 Oct, Anxiety, generalized F41.1 [facility] [id number] [place] [address] 39758- 3056 Oct, Generalized anxiety disorder F41.1 and Excessive excitability/irritability with unrest R45.89 [facility] [id number] [place] [address] 99668- 4919 Oct, [facility] [id number] [place] [address] 89782- 3739 Sep, [facility] [address] 33134- 9705 July, [facility] [id number] [place] [address] 86552- 5729 July, [facility] 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 and Excessive excitability/ irritability with unrest R45.89 [facility] [id number] [place] [address] 08743- 8237 July, [facility] [address] 80272- 4256 July, Generalized anxiety disorder F41.1 [facility] [id number] [place] [address] 77752- 4916 May, [facility] [address] 05603- 7877 May, [facility] [id number] [place] [address] 44111- 8013 Mar, [facility] [id number] [place] [address] 62748- 7458 Feb, [facility] [id number] [place] [address] 52686- 0733 Jan, [facility] [id number] [place] [address] 85950- 0351 Jan, Generalized anxiety disorder F41.1 and Encounter for observation for other suspected diseases and conditions ruled out Z03.89 [facility] [address] 98778- 3760 Jan, Generalized anxiety disorder F41.1 [facility] [id number] [place] [address] 33323- 1852 Jan, [facility] [id number] [place] [address] 02330- 5201 Dec, Generalized anxiety disorder F41.1 [facility] [address] [facility] [id number] [place], [place] [address]- 1266 Dec, Family history of pinworm infection Z83.1 [facility] [address] [facility] [id number] [place]- 6112 Nov, Generalized anxiety disorder 300.02 ; No condition on As[place] II V71.09 and Back problem 724.9 IMMUNIZATIONS No Known Immunizations SOCIAL HISTORY Never Assessed REASON FOR VISIT Medication f/uJeffrey Braxton RN PLAN OF CARE Activity Details Follow Up 3 Months Reason: VITAL SIGNS Height 72 in 2017-10-02 Weight 205 lbs 2017-10-02 Temperature 98.0 degrees Fahrenheit 2017-10-02 Heart Rate 78 bpm 2017-10-02 Respiratory Rate 18 2017-10-02 BMI 27.80 kg/m2 2017-10-02 Blood pressure systolic 126 mmHg 2017-10-02 Blood pressure diastolic 62 mmHg 2017-10-02 MEDICATIONS Medication Instructions Dosage Frequency Start Date End Date Duration Status Seroquel 100 mg Orally at bedtime 1 tablet Oct, Active Xanax 1 MG Orally take at bedtime 1 tablet Mar, 30 days Active Tramadol HCl 50 mg Orally 3 times a day 1 tablet as needed 8h Aug, Active Xanax XR 3 MG Orally Once a day for anxiety 1 tablet Mar, Active Lamictal 200 mg Orally Once a day 1 tablet 24h Oct, Active Metformin HCl 500 mg Orally 2 times a day 1 tablet 12h Active RESULTS Name Result Date Reference Range A1C (IN HOUSE) 2017-10-02 A1C IN HOUSE 5.5 4.3 - 5.6 % Previous A1c 5.2 Lot [id number] Exp date 05/2019 PROCEDURES Procedure Date Ordered Result Body Site GLYCATED HEMOGLOBIN TEST October 02, 2017 INSTRUCTIONS MEDICATIONS ADMINISTERED No Known Medications MEDICAL (GENERAL) HISTORY Type Description Date Medical History Anxiety Medical History depression Medical History Bilateral knee pain-needing repair Medical History Disc herniation in lumbar spine Medical History Fractured clavicle-healed incorrectly Surgical History Right shoulder rotator cuff repair Surgical History Left Shoulder reconstruction 2017 Hospitalization History Surgeries Hospitalization History Disc dislocation- [facility]
--- OUTSIDE RECORDS SUMMARY | 2018-06-19 07:46 | XMS REPORT ---
Author Author YANDY WATT Organization [facility] Address [address] [place] [address] Care Team Providers Care Mud Analysis Well Logging Captain Name Role Phone YANDY WATT Unavailable PROBLEMS Type Condition ICD9-CM Code [id number] Code Onset Dates Condition Status SNOMED Code Problem JAKE (generalized anxiety disorder) F41.1 Active 29807389 Problem Bipolar 2 disorder F31.81 Active 94932557 Problem Primary osteoarthritis of both knees M17.0 Active 589614486 Problem Tobacco dependence F17.200 Active 10986367 Problem Other chronic pain G89.29 Active 23317658 Problem Drug-induced erectile dysfunction N52.2 Active 114694597 Problem Lumbago with sciatica, right side M54.41 Active 188451499 Problem Pre-diabetes R73.03 Active 499721629 ALLERGIES No Information ENCOUNTERS Encounter Location Date Diagnosis [facility] [id number] [place] [address] 37850- 0247 Jan, [facility] [id number] [place] [address] 26648- 8954 Sep, [facility] [id number] [place] [address] 86138- 3201 Sep, [facility] [address] 00839- 2716 Sep, Primary osteoarthritis of both knees M17.0 ; Lumbago with sciatica, right side M54.41 ; Pre-diabetes R73.03 and Tobacco dependence F17.200 [facility] [id number] [place] [address] 82409- 3052 Aug, [facility] [id number] [place] [address] 22802- 2550 Aug, [place] [id number] [place] [address] 40397- 1026 Aug, [facility] [id number] [place] [address] 18877- 5311 Aug, Primary osteoarthritis of both knees M17.0 ; Abnormal blood creatinine level R79.9 ; Lumbago with sciatica, right side M54.41 and Pre- diabetes R73.03 [facility] [address] 25568- 6964 July, Bipolar 2 disorder F31.81 ; JAKE (generalized anxiety disorder) F41.1 and Tobacco dependence F17.200 [facility] [address] 71939- 9405 July, [facility] [address] 08339- 1204 Jun, [facility] [id number] [place] [address] 83920- 4871 Jun, [facility] [id number] [place] [address] 03008- 0369 Jun, Abnormal blood creatinine level R79.9 [facility] [id number] [place] [address] 74185- 3274 Jun, Pre-diabetes R73.03 and Primary osteoarthritis of both knees M17.0 [facility] [id number] [place] [address] 73195- 0156 Jun, Pre-diabetes R73.03 ; Other chronic pain G89.29 ; Primary osteoarthritis of both knees M17.0 ; Drug-induced erectile dysfunction N52.2 and Tobacco dependence F17.200 [facility] [id number] [place] [address] 21019- 2040 May, [facility] [id number] [place] [address] 03593- 3036 May, [facility] [id number] [place] [address] 42863- 0954 May, [facility] [id number] [place] [address] 77573- 0436 May, [facility] [id number] [place] [address] 56796- 8816 May, [facility] [id number] [place] [address] 88819- 6896 May, [facility] [id number] [place] [address] 42317- 1265 May, Bipolar 2 disorder F31.81 ; JAKE (generalized anxiety disorder) F41.1 and Tobacco dependence F17.200 [facility] [id number] [place] [address] 40052- 8325 Jan, [facility] [id number] [place] [address] 97042- 4246 Jan, [facility] [id number] [place] [address] 73611- 2328 Dec, [facility] [id number] [place] [address] 86370- 8319 Dec, [facility] [id number] [place] [address] 57884- 6365 Nov, [facility] [id number] [place] [address] 81106- 2986 25 Nov, 2016 Other chronic pain G89.29 and Pain in left shoulder M25.512 [facility] [id number] [place] [address] 60341- 9048 05 Nov, 2016 Bipolar 2 disorder F31.81 and JAKE (generalized anxiety disorder) F41.1 [facility] [id number] [place] [address] 65181- 1746 04 Oct, 2016 Pre-diabetes R73.03 and Left anterior shoulder pain M25.512 [facility] [id number] [place] [address] 14423- 3466 Sep, [place] [id number] [place] [address] 08172- 1961 July, Lumbago with sciatica, right side M54.41 ; Left anterior shoulder pain M25.512 and Pain in right knee M25.561 [place] [id number] [place] [address] 71105- 2852 Jun, [place] [id number] [place] [address] 76863- 8425 Jun, longterm 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 ; Bipolar 2 disorder F31.81 and JAKE (generalized anxiety disorder) F41.1 [place] [id number] [place] [address] 80792- 7823 May, Low back pain M54.5 ; Pain in right knee M25.561 ; Pain in left knee M25.562 and Pre-diabetes R73.03 [place] [id number] [place] [address] 62716- 0497 May, [place] [id number] [place] [address] 80375- 9316 May, [place] [id number] [place] [address] 61453- 6768 May, Drug-induced erectile dysfunction N52.2 [place] [id number] [place] [address] 29683- 6472 Mar, [place] [id number] [place] [address] 49012- 3114 Mar, [place] [id number] [place] [address] 52465- 6386 Mar, Encounter for routine adult health examination with abnormal findings Z00.01 ; Low back pain M54.5 ; Other chronic pain G89.29 ; Pain in right knee M25.561 ; Pain in left knee M25.562 ; Family history of diabetes mellitus Z83.3 and Drug-induced erectile dysfunction N52.2 [facility] [id number] [place] [address] 20953- 0429 Mar, Bipolar 2 disorder F31.81 and JAKE (generalized anxiety disorder) F41.1 [facility] [id number] [place] [address] 48836- 8914 Mar, [facility] [id number] [place] [address] 39504- 6679 Feb, [facility] [id number] [place] [address] 11106- 3031 Feb, [facility] [id number] [place] [address] 69764- 9399 Jan, [facility] [id number] [place] [address] 63926- 5012 Dec, [facility] [id number] [place] [address] 72598- 3186 Dec, [facility] [id number] [place] [address] 56423- 0466 Dec, Bipolar 2 disorder F31.81 and JAKE (generalized anxiety disorder) F41.1 [facility] [id number] [place] [address] 43522- 0210 Nov, [facility] [id number] [place] [address] 78709- 8473 Oct, Bipolar 2 disorder F31.81 and JAKE (generalized anxiety disorder) F41.1 [facility] [id number] [place] [address] 00585- 8509 Oct, Anxiety, generalized F41.1 [facility] [id number] [place] [address] 38139- 2670 Oct, Generalized anxiety disorder F41.1 and Excessive excitability/irritability with unrest R45.89 [facility] [id number] [place] [address] 46129- 2359 Oct, [facility] [address] [place] [address] 48620- 8322 Sep, [facility] [id number] [place] [address] 93877- 2194 July, [facility] [id number] [place] [address] 83508- 4286 July, 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 and Excessive excitability/ irritability with unrest R45.89 [facility] [id number] [place] [address] 04680- 6556 July, [facility] [id number] [place] [address] 98354- 6739 July, Generalized anxiety disorder F41.1 [facility] [id number] [place] [address] 64824- 7152 May, [facility] [id number] [place] [address] 31434- 8596 May, [facility] [id number] [place] [address] 50889- 0292 Mar, [facility] [id number] [place] [address] 57038- 4016 Feb, [facility] [id number] [place] [address] 19830- 4856 Jan, [facility] [id number] [place] [address] 61070- 5735 Jan, Generalized anxiety disorder F41.1 and Encounter for observation for other suspected diseases and conditions ruled out Z03.89 [facility] [id number] [place] [address] 11408- 1615 Jan, Generalized anxiety disorder F41.1 [facility] [id number] [place] [address] 12938- 1751 Jan, [facility] [id number] [place] [address] 64425- 2879 Dec, Generalized anxiety disorder F41.1 [facility] [address] [facility] [id number] [place] [address]- 0292 Dec, Family history of pinworm infection Z83.1 [facility] [address] [facility] [id number] [place] [address]- 4192 Nov, Generalized anxiety disorder 300.02 ; No condition on [place] II V71.09 and Back problem 724.9 IMMUNIZATIONS No Known Immunizations SOCIAL HISTORY Never Assessed REASON FOR VISIT MTM (Medication Therapy Management) PLAN OF CARE VITAL SIGNS MEDICATIONS Unknown [...] Hospitalization History Surgeries Hospitalization History Disc dislocation- [facility]
--- OUTSIDE RECORDS SUMMARY | 2018-06-19 07:47 | XMS REPORT ---
Author Author YANDY WATT Organization [facility] Address [address] [place] [address] Care Team Providers Care Sheet Rock Finisher Name Role Phone YANDY WATT Unavailable PROBLEMS Type Condition ICD9-CM Code OEV94-HS Code Onset Dates Condition Status SNOMED Code Problem JAKE (generalized anxiety disorder) F41.1 Active 77751302 Problem Bipolar 2 disorder F31.81 Active 94522539 Problem Primary osteoarthritis of both knees M17.0 Active 049516367 Problem Tobacco dependence F17.200 Active 36407953 Problem Other chronic pain G89.29 Active 04579420 Problem Drug-induced erectile dysfunction N52.2 Active 778381092 Problem Lumbago with sciatica, right side M54.41 Active 884670110 Problem Pre-diabetes R73.03 Active 935585691 ALLERGIES No Known Allergies ENCOUNTERS Encounter Location Date Diagnosis [facility] [address] [address] Jan, [facility] [id number] [place] [address] 95757- 7171 Sep, [facility] [id number] [place] [address] 73380- 3213 Sep, [facility] [id number] [place] [address] 85726- 7683 Sep, Primary osteoarthritis of both knees M17.0 ; Lumbago with sciatica, right side M54.41 ; Pre-diabetes R73.03 and Tobacco dependence F17.200 [facility] [id number] [place] [address] 47900- 5647 Aug, [facility] [id number] [place] [address] 15963- [phone] Aug, [facility] [id number] [place] [address] 43012- 7325 Aug, [facility] [id number] [place] [address] 04022- 7277 Aug, Primary osteoarthritis of both knees M17.0 ; Abnormal blood creatinine level R79.9 ; Lumbago with sciatica, right side M54.41 and Pre- diabetes R73.03 [facility] [id number] [place] [address] 76076- 1768 July, Bipolar 2 disorder F31.81 ; JAKE (generalized anxiety disorder) F41.1 and Tobacco dependence F17.200 [facility] [id number] [place] [address] 54307- 5783 July, [facility] [id number] [place] [address] 56746- 7316 Jun, [facility] [id number] [place] [address] 81225- 3555 Jun, [facility] [id number] [place] [address] 48575- 8420 Jun, Abnormal blood creatinine level R79.9 [facility] [id number] [place] [address] 52328- 7151 Jun, Pre-diabetes R73.03 and Primary osteoarthritis of both knees M17.0 [facility] [id number] [place] [address] 83876- 9800 Jun, Pre-diabetes R73.03 ; Other chronic pain G89.29 ; Primary osteoarthritis of both knees M17.0 ; Drug-induced erectile dysfunction N52.2 and Tobacco dependence F17.200 [facility] [id number] [place] [address] 56035- 3844 May, [facility] [id number] [place] [address] 94221- 4808 May, [facility] [id number] [place] [address] 71720- 8181 May, [facility] [id number] [place] [address] 61532- 5617 May, [facility] [id number] [place] [address] 08454- 7733 May, [facility] [id number] [place] [address] 63461- 2326 May, [facility] [id number] [place] [address] 06727- 7705 May, Bipolar 2 disorder F31.81 ; JAKE (generalized anxiety disorder) F41.1 and Tobacco dependence F17.200 [facility] [id number] [place] [address] 04762- 0246 Jan, [facility] [id number] [place] [address] 17408- 3528 Jan, [facility] [id number] [place] [address] 95725- 0344 Dec, [facility] [id number] [place] [address] 22194- 5961 Dec, [facility] [id number] [place] [address] 58864- 2493 27 Nov, 2016 [facility] [id number] [place] [address] 15586- 7505 25 Nov, 2016 Other chronic pain G89.29 and Pain in left shoulder M25.512 [facility] [id number] [place] [address] 83429- 3785 05 Nov, 2016 Bipolar 2 disorder F31.81 and JAKE (generalized anxiety disorder) F41.1 [facility] [id number] [place] [address] 66291- 2497 04 Oct, 2016 Pre-diabetes R73.03 and Left anterior shoulder pain M25.512 [facility] [id number] [place] [address] 64088- 0861 Sep, [place] [id number] [place] [address] 07990- 7960 July, Lumbago with sciatica, right side M54.41 ; Left anterior shoulder pain M25.512 and Pain in right knee M25.561 [place] [id number] [place] [address] 91637- 0685 Jun, [place] [id number] [place] [address] 96328- 9840 Jun, [facility]PC 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 ; Bipolar 2 disorder F31.81 and JAKE (generalized anxiety disorder) F41.1 [place] [id number] [place] [address] 69397- 3445 May, Low back pain M54.5 ; Pain in right knee M25.561 ; Pain in left knee M25.562 and Pre-diabetes R73.03 [place] [id number] [place] [address] 31603- 5868 May, [place] [id number] [place] [address] 69641- 3494 May, [place] [id number] [place] [address] 67968- 1657 May, Drug-induced erectile dysfunction N52.2 [place] [id number] [place] [address] 78424- 4090 Mar, [place] [id number] [place] [address] 14373- 7913 Mar, [place] [id number] [place] [address] 57401- 3438 Mar, Encounter for routine adult health examination with abnormal findings Z00.01 ; Low back pain M54.5 ; Other chronic pain G89.29 ; Pain in right knee M25.561 ; Pain in left knee M25.562 ; Family history of diabetes mellitus Z83.3 and Drug-induced erectile dysfunction N52.2 [facility] [id number] [place] [address] 39062- 8357 Mar, Bipolar 2 disorder F31.81 and JAKE (generalized anxiety disorder) F41.1 [facility] [id number] [place] [address] 74604- 8199 Mar, [facility] [id number] [place] [address] 52172- 1782 Feb, [facility] [id number] [place] [address] 92767- 1725 Feb, [facility] [address] 69197- 9567 Jan, [facility] [id number] [place] [address] 27622- 5066 Dec, [facility] [address] 93099- 6399 Dec, [facility] [id number] [place] [address] 11710- 3654 Dec, Bipolar 2 disorder F31.81 and JAKE (generalized anxiety disorder) F41.1 [facility] [id number] [place] [address] 99294- 5730 Nov, [facility] [id number] [place] [address] 08994- 4762 Oct, Bipolar 2 disorder F31.81 and JAKE (generalized anxiety disorder) F41.1 [facility] [id number] [place] [address] 58416- 9002 Oct, Anxiety, generalized F41.1 [facility] [id number] [place] [address] 43227- 7819 Oct, Generalized anxiety disorder F41.1 and Excessive excitability/irritability with unrest R45.89 [facility] [id number] [place] [address] 55276- 1226 Oct, [facility] [id number] [place] [address] 40894- 4947 Sep, [facility] [address] 35421- 9886 July, [facility] [id number] [place] [address] 95356- 4269 July, [facility]PC 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 and Excessive excitability/ irritability with unrest R45.89 [facility] [id number] [place] [address] 39051- 7164 July, [facility] [address] 56525- 7033 July, Generalized anxiety disorder F41.1 [facility] [id number] [place] [address] 86339- 1806 May, [facility] [address] 46270- 8193 May, [facility] [id number] [place] [address] 17619- 4065 Mar, [facility] [id number] [place] [address] 84931- 0042 Feb, [facility] [id number] [place] [address] 26350- 7080 Jan, [facility] [id number] [place] [address] 27132- 4316 Jan, Generalized anxiety disorder F41.1 and Encounter for observation for other suspected diseases and conditions ruled out Z03.89 [facility] [address] 62760- 6552 Jan, Generalized anxiety disorder F41.1 [facility] [id number] [place] [address] 77336- 4331 Jan, [facility] [id number] [place] [address] 25380- 7143 Dec, Generalized anxiety disorder F41.1 [facility] [address] [facility] [id number] [place] [address]- 7914 Dec, Family history of pinworm infection Z83.1 [facility] [address] [facility] [id number] [place] [address]- 9906 Nov, Generalized anxiety disorder 300.02 ; No condition on Aragon II V71.09 and Back problem 724.9 IMMUNIZATIONS No Known Immunizations SOCIAL HISTORY Never Assessed REASON FOR VISIT Transition of Care WB-MA, Medication f/u, PT is having pain following left shoulder surgery, lower back pain and right knee pain PLAN OF CARE Activity Details Follow Up 3 Months Reason: VITAL SIGNS Height 72 in 2017-09-04 Weight 210 lbs 2017-09-04 Temperature 98.5 degrees Fahrenheit 2017-09-04 Heart Rate 84 bpm 2017-09-04 Respiratory Rate 20 2017-09-04 BMI 28.48 kg/m2 2017-09-04 Blood pressure systolic 118 mmHg 2017-09-04 Blood pressure diastolic 68 mmHg 2017-09-04 MEDICATIONS Medication Instructions Dosage Frequency Start Date End Date Duration Status Celecoxib 200 MG TAKE ONE CAPSULE BY MOUTH ONCE DAILY (MUST HAVE APPOINTMENT FOR REFILL) 90 Not-Taking Viagra 25 MG Orally Once a day 1-2 tablet daily as needed before sexual activitiy 24h Not-Taking Xanax XR 3 MG Orally Once a day for anxiety 1 tablet Mar, Active Metformin HCl 500 mg Orally 2 times a day TAKE ONE TABLET ONCE DAILY WITH EVENING MEAL FOR 7 DAYS THEN INCREASE TO ONE TABLET TWICE DAILY WITH EVENING MEAL 12h 90 days Active Xanax 1 MG Orally take at bedtime 1 tablet Mar, Active Tramadol HCl 50 mg Orally 3 times a day 1 tablet as needed 8h Aug, Active Seroquel 100 mg Orally at bedtime 1 tablet Oct, Active Lamictal 200 mg Orally Once a day 1 tablet 24h Oct, Active RESULTS No Results PROCEDURES Procedure Date Ordered Result Body Site LAB NOT BILLED BY [facility] September 04, 2017 INSTRUCTIONS MEDICATIONS ADMINISTERED No Known Medications MEDICAL (GENERAL) HISTORY Type Description Date Medical History Anxiety Medical History depression Medical History Bilateral knee pain-needing repair Medical History Disc herniation in lumbar spine Medical History Fractured clavicle-healed incorrectly Surgical History Right shoulder rotator cuff repair Surgical History Left Shoulder reconstruction 2016 Hospitalization History Surgeries Hospitalization History Disc dislocation- [facility]
--- OUTSIDE RECORDS SUMMARY | 2018-06-19 07:47 | XMS REPORT ---
Author Author ALEYDA PECK [facility] Address [address] [place] [address] Care Team Providers Care Word Processing Supervisor Name Role Phone CISCO ALEYDA Unavailable PROBLEMS Type Condition ICD9-CM Code JEL53-VT Code Onset Dates Condition Status SNOMED Code Problem JAKE (generalized anxiety disorder) F41.1 Active 64579369 Problem Bipolar 2 disorder F31.81 Active 17707065 Problem Primary osteoarthritis of both knees M17.0 Active 063232731 Problem Tobacco dependence F17.200 Active 86292351 Problem Other chronic pain G89.29 Active 48078642 Problem Drug-induced erectile dysfunction N52.2 Active 350305113 Problem Lumbago with sciatica, right side M54.41 Active 765833969 Problem Pre-diabetes R73.03 Active 327241679 ALLERGIES No Information ENCOUNTERS Encounter Location Date Diagnosis [facility] [id number] [place] [address] 49458- 7485 Jan, [facility] [id number] [place] [address] 56572- 5415 Sep, [facility] [id number] [place] [address] 75087- 1440 Sep, [facility] [address] 65273- 2921 Sep, Primary osteoarthritis of both knees M17.0 ; Lumbago with sciatica, right side M54.41 ; Pre-diabetes R73.03 and Tobacco dependence F17.200 [facility] [id number] [place] [address] 59370- 9097 Aug, [facility] [id number] [place] [address] 95535- 3210 Aug, [place] [id number] [place] [address] 63862- 8905 Aug, [facility] [id number] [place] [address] 59079- 2271 Aug, Primary osteoarthritis of both knees M17.0 ; Abnormal blood creatinine level R79.9 ; Lumbago with sciatica, right side M54.41 and Pre- diabetes R73.03 [facility] [address] 84851- 0512 July, Bipolar 2 disorder F31.81 ; JAKE (generalized anxiety disorder) F41.1 and Tobacco dependence F17.200 [facility] [address] 78677- 4444 July, [facility] [address] 27759- 1409 Jun, [facility] [id number] [place] [address] 98839- 7985 Jun, [facility] [id number] [place] [address] 16872- 7592 Jun, Abnormal blood creatinine level R79.9 [facility] [id number] [place] [address] 82684- 3767 Jun, Pre-diabetes R73.03 and Primary osteoarthritis of both knees M17.0 [facility] [id number] [place] [address] 76662- 5481 Jun, Pre-diabetes R73.03 ; Other chronic pain G89.29 ; Primary osteoarthritis of both knees M17.0 ; Drug-induced erectile dysfunction N52.2 and Tobacco dependence F17.200 [facility] [id number] [place] [address] 05203- 7184 May, [facility] [id number] [place] [address] 06869- 8942 May, [facility] [id number] [place] [address] 18314- 9261 May, [facility] [id number] [place] [address] 71855- 6758 May, [facility] [id number] [place] [address] 85946- 1516 May, [facility] [id number] [place] [address] 38930- 8686 May, [facility] [id number] [place] [address] 91509- 2735 May, Bipolar 2 disorder F31.81 ; JAKE (generalized anxiety disorder) F41.1 and Tobacco dependence F17.200 [facility] [id number] [place] [address] 02817- 1769 Jan, [facility] [id number] [place] [address] 14806- 8849 Jan, [facility] [id number] [place] [address] 83126- 0689 Dec, [facility] [id number] [place] [address] 97908- 2015 Dec, [facility] [id number] [place] [address] 80910- 1866 Nov, [facility] [id number] [place] [address] 80454- 3041 25 Nov, 2016 Other chronic pain G89.29 and Pain in left shoulder M25.512 [facility] [id number] [place] [address] 94206- 1645 05 Nov, 2016 Bipolar 2 disorder F31.81 and JAKE (generalized anxiety disorder) F41.1 [facility] [id number] [place] [address] 92411- 5618 04 Oct, 2016 Pre-diabetes R73.03 and Left anterior shoulder pain M25.512 [facility] [id number] [place] [address] 01158- 5299 Sep, [place] [id number] [place] [address] 78235- 6395 July, Lumbago with sciatica, right side M54.41 ; Left anterior shoulder pain M25.512 and Pain in right knee M25.561 [place] [id number] [place] [address] 92852- 6067 Jun, [place] [id number] [place] [address] 63033- 8075 Jun, [facility] 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 ; Bipolar 2 disorder F31.81 and JAKE (generalized anxiety disorder) F41.1 [place] [id number] [place] [address] 83368- 1476 May, Low back pain M54.5 ; Pain in right knee M25.561 ; Pain in left knee M25.562 and Pre-diabetes R73.03 [place] [id number] [place] [address] 44175- 5440 May, [place] [id number] [place] [address] 94138- 7339 May, [place] [id number] [place] [address] 29647- 0127 May, Drug-induced erectile dysfunction N52.2 [place] [id number] [place] [address] 70659- 4339 Mar, [place] [id number] [place] [address] 13731- 8842 Mar, [place] [id number] [place] [address] 79457- 4929 Mar, Encounter for routine adult health examination with abnormal findings Z00.01 ; Low back pain M54.5 ; Other chronic pain G89.29 ; Pain in right knee M25.561 ; Pain in left knee M25.562 ; Family history of diabetes mellitus Z83.3 and Drug-induced erectile dysfunction N52.2 [facility] [id number] [place] [address] 27308- 7117 Mar, Bipolar 2 disorder F31.81 and JAKE (generalized anxiety disorder) F41.1 [facility] [id number] [place] [address] 42062- 4047 Mar, [facility] [id number] [place] [address] 04741- 7035 Feb, [facility] [id number] [place] [address] 89442- 0630 Feb, [facility] [id number] [place] [address] 37079- 7158 Jan, [facility] [id number] [place] [address] 44870- 6061 Dec, [facility] [id number] [place] [address] 96869- 1968 Dec, [facility] [id number] [place] [address] 93777- 4768 Dec, Bipolar 2 disorder F31.81 and JAKE (generalized anxiety disorder) F41.1 [facility] [id number] [place] [address] 26489- 6913 Nov, [facility] [id number] [place] [address] 78953- 4539 Oct, Bipolar 2 disorder F31.81 and JAKE (generalized anxiety disorder) F41.1 [facility] [id number] [place] [address] 36103- 9701 Oct, Anxiety, generalized F41.1 [facility] [id number] [place] [address] 96473- 4943 Oct, Generalized anxiety disorder F41.1 and Excessive excitability/irritability with unrest R45.89 [facility] [id number] [place] [address] 66513- 4879 Oct, [facility] [id number] [place] [address] 47735- 1793 Sep, [facility] [id number] [place] [address] 58282- 1258 July, [facility] [id number] [place] [address] 40201- 9696 July, 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 and Excessive excitability/ irritability with unrest R45.89 [facility] [id number] [place] [address] 23970- 7733 July, [facility] [id number] [place] [address] 42482- 8626 July, Generalized anxiety disorder F41.1 [facility] [id number] [place] [address] 00117- 0298 May, [facility] [id number] [place] [address] 01847- 0465 May, [facility] [id number] [place] [address] 71398- 5335 Mar, [facility] [id number] [place] [address] 11474- 3600 Feb, [facility] [id number] [place] [address] 44174- 8381 Jan, [facility] [id number] [place] [address] 09790- 9427 Jan, Generalized anxiety disorder F41.1 and Encounter for observation for other suspected diseases and conditions ruled out Z03.89 [facility] [id number] [place] [address] 00839- 3274 Jan, Generalized anxiety disorder F41.1 [facility] [id number] [place] [address] 23182- 8006 Jan, [facility] [id number] [place] [address] 21494- 4410 Dec, Generalized anxiety disorder F41.1 [facility] [address] [facility] [id number] [place] [address]- 1693 Dec, Family history of pinworm infection Z83.1 [facility] [address] [facility] [id number] [place] [address]- 3236 Nov, Generalized anxiety disorder 300.02 ; No condition on [place] II V71.09 and Back problem 724.9 IMMUNIZATIONS [...] Hospitalization History Surgeries Hospitalization History Disc dislocation- [facility]
--- OUTSIDE RECORDS SUMMARY | 2018-06-19 07:47 | XMS REPORT ---
Author Author WASHINGTONEDMUNDONICOLLE Organization [facility] Address [address] [place] [address] Care Team Providers Care Environmental Protection Inspector Name Role Phone DELAROSANICOLLE Dobbins Unavailable PROBLEMS Type Condition ICD9-CM Code IJC21-FC Code Onset Dates Condition Status SNOMED Code Problem JAKE (generalized anxiety disorder) F41.1 Active 23804317 Problem Bipolar 2 disorder F31.81 Active 08754685 Problem Primary osteoarthritis of both knees M17.0 Active 635276181 Problem Tobacco dependence F17.200 Active 38201072 Problem Other chronic pain G89.29 Active 52843453 Problem Drug-induced erectile dysfunction N52.2 Active 099188398 Problem Lumbago with sciatica, right side M54.41 Active 764066016 Problem Pre-diabetes R73.03 Active 258389224 ALLERGIES No Information ENCOUNTERS Encounter Location Date Diagnosis [facility] [id number] [place] [address] 46330- 4207 Jan, [facility] [id number] [place] [address] 87932- 1879 Sep, [facility] [id number] [place] [address] 64498- 3379 Sep, [facility] [address] 63109- 7557 Sep, Primary osteoarthritis of both knees M17.0 ; Lumbago with sciatica, right side M54.41 ; Pre-diabetes R73.03 and Tobacco dependence F17.200 [facility] [id number] [place] [address] 86071- 5677 Aug, [facility] [id number] [place] [address] 69644- 4477 Aug, [place] [id number] [place] [address] 16750- 5391 Aug, [facility] [id number] [place] [address] 63863- 7718 Aug, Primary osteoarthritis of both knees M17.0 ; Abnormal blood creatinine level R79.9 ; Lumbago with sciatica, right side M54.41 and Pre- diabetes R73.03 [facility] [address] 21692- 0026 July, Bipolar 2 disorder F31.81 ; JAKE (generalized anxiety disorder) F41.1 and Tobacco dependence F17.200 [facility] [address] 46154- 1756 July, [facility] [address] 47253- 9549 Jun, [facility] [id number] [place] [address] 50709- 7074 Jun, [facility] [id number] [place] [address] 46878- 7450 Jun, Abnormal blood creatinine level R79.9 [facility] [id number] [place] [address] 69786- 0391 Jun, Pre-diabetes R73.03 and Primary osteoarthritis of both knees M17.0 [facility] [id number] [place] [address] 29118- 5731 Jun, Pre-diabetes R73.03 ; Other chronic pain G89.29 ; Primary osteoarthritis of both knees M17.0 ; Drug-induced erectile dysfunction N52.2 and Tobacco dependence F17.200 [facility] [id number] [place] [address] 17331- 2905 May, [facility] [id number] [place] [address] 09813- 3671 May, [facility] [id number] [place] [address] 77944- 0322 May, [facility] [id number] [place] [address] 11339- 5835 May, [facility] [id number] [place] [address] 81244- 3606 May, [facility] [id number] [place] [address] 14410- 0876 May, [facility] [id number] [place] [address] 01234- 0306 May, Bipolar 2 disorder F31.81 ; JAKE (generalized anxiety disorder) F41.1 and Tobacco dependence F17.200 [facility] [id number] [place] [address] 41115- 8620 Jan, [facility] [id number] [place] [address] 46629- 4009 Jan, [facility] [id number] [place] [address] 69267- 9044 Dec, [facility] [id number] [place] [address] 41669- 8279 Dec, [facility] [id number] [place] [address] 53026- 5332 Nov, [facility] [id number] [place] [address] 85176- 2894 25 Nov, 2016 Other chronic pain G89.29 and Pain in left shoulder M25.512 [facility] [id number] [place] [address] 62855- 1430 05 Nov, 2016 Bipolar 2 disorder F31.81 and JAKE (generalized anxiety disorder) F41.1 [facility] [id number] [place] [address] 61356- 3303 04 Oct, 2016 Pre-diabetes R73.03 and Left anterior shoulder pain M25.512 [facility] [id number] [place] [address] 25264- 6878 Sep, [place] [address] [place] [address] 65442- 4120 July, Lumbago with sciatica, right side M54.41 ; Left anterior shoulder pain M25.512 and Pain in right knee M25.561 [place] [id number] [place] [address] 32847- 7295 Jun, [place] [id number] [place] [address] 72603- 1172 Jun, 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 ; Bipolar 2 disorder F31.81 and JAKE (generalized anxiety disorder) F41.1 [place] [id number] [place] [address] 29061- 1153 May, Low back pain M54.5 ; Pain in right knee M25.561 ; Pain in left knee M25.562 and Pre-diabetes R73.03 [place] [id number] [place] [address] 10877- 3731 May, [place] [id number] [place] [address] 25028- 8039 May, [place] [id number] [place] [address] 27642- 6715 May, Drug-induced erectile dysfunction N52.2 [place] [id number] [place] [address] 62004- 0620 Mar, [place] [id number] [place] [address] 66642- 3906 Mar, [place] [id number] [place] [address] 07909- 9335 Mar, Encounter for routine adult health examination with abnormal findings Z00.01 ; Low back pain M54.5 ; Other chronic pain G89.29 ; Pain in right knee M25.561 ; Pain in left knee M25.562 ; Family history of diabetes mellitus Z83.3 and Drug-induced erectile dysfunction N52.2 [facility] [id number] [place] [address] 55207- 6158 Mar, Bipolar 2 disorder F31.81 and JAKE (generalized anxiety disorder) F41.1 [facility] [id number] [place] [address] 99088- 6941 Mar, [facility] [id number] [place] [address] 34945- 5919 Feb, [facility] [id number] [place] [address] 33059- 4929 Feb, [facility] [id number] [place] [address] 75944- 6017 Jan, [facility] [id number] [place] [address] 53549- 8080 Dec, [facility] [id number] [place] [address] 30922- 6268 Dec, [facility] [id number] [place] [address] 91009- 9131 Dec, Bipolar 2 disorder F31.81 and JAKE (generalized anxiety disorder) F41.1 [facility] [id number] [place] [address] 08874- 5819 Nov, [facility] [id number] [place] [address] 08956- 9448 Oct, Bipolar 2 disorder F31.81 and JAKE (generalized anxiety disorder) F41.1 [facility] [id number] [place] [address] 92956- 8318 Oct, Anxiety, generalized F41.1 [facility] [id number] [place] [address] 82765- 1776 Oct, Generalized anxiety disorder F41.1 and Excessive excitability/irritability with unrest R45.89 [facility] [id number] [place] [address] 00128- 2510 Oct, [facility] [address] [place] [address] 43429- 3544 Sep, [facility] [id number] [place] [address] 19604- 7111 July, [facility] [id number] [place] [address] 70820- 1400 July, 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 and Excessive excitability/ irritability with unrest R45.89 [facility] [id number] [place] [address] 83401- 7922 July, [facility] [id number] [place] [address] 88590- 1772 July, Generalized anxiety disorder F41.1 [facility] [id number] [place] [address] 90582- 5898 May, [facility] [id number] [place] [address] 56490- 5404 May, [facility] [id number] [place] [address] 12968- 5513 Mar, [facility] [id number] [place] [address] 08964- 7588 Feb, [facility] [id number] [place] [address] 67478- 8994 Jan, [facility] [id number] [place] [address] 77785- 3433 Jan, Generalized anxiety disorder F41.1 and Encounter for observation for other suspected diseases and conditions ruled out Z03.89 [facility] [id number] [place] [address] 79381- 3026 Jan, Generalized anxiety disorder F41.1 [facility] [id number] [place] [address] 20688- 8313 Jan, [facility] [id number] [place] [address] 89564- 0490 Dec, Generalized anxiety disorder F41.1 [facility] [address] [facility] [id number] [place] [address] Dec, Family history of pinworm infection Z83.1 [facility] [address] [facility] [id number] [place] [address] Nov, Generalized anxiety disorder 300.02 ; No condition on [place] II V71.09 and Back problem 724.9 IMMUNIZATIONS No Known Immunizations SOCIAL HISTORY Never Assessed REASON FOR VISIT provider change form PLAN OF CARE VITAL SIGNS MEDICATIONS Unknown [...] Hospitalization History Surgeries Hospitalization History Disc dislocation- [facility]
--- OUTSIDE RECORDS SUMMARY | 2018-06-19 07:47 | XMS REPORT ---
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 Name Role Phone [employer]IS[employer] ALEYDA Unavailable PROBLEMS Type Condition ICD9-CM Code [id number] Code Onset Dates Condition Status SNOMED Code Problem JAKE (generalized anxiety disorder) F41.1 Active 06903315 Problem Bipolar 2 disorder F31.81 Active 68387087 Problem Primary osteoarthritis of both knees M17.0 Active 858034989 Problem Tobacco dependence F17.200 Active 64748698 Problem Other chronic pain G89.29 Active 56199711 Problem Drug-induced erectile dysfunction N52.2 Active 484910861 Problem Lumbago with sciatica, right side M54.41 Active 979858379 Problem Pre-diabetes R73.03 Active 381466061 ALLERGIES No Known Allergies ENCOUNTERS Encounter Location Date Diagnosis [facility] [address] [address] Jan, [facility] [id number] [place] [address] 84809- 2649 Sep, [facility] [id number] [place] [address] 16134- 0600 Sep, [facility] [address] [address] Sep, Primary osteoarthritis of both knees M17.0 ; Lumbago with sciatica, right side M54.41 ; Pre-diabetes R73.03 and Tobacco dependence F17.200 [facility] [id number] [place] [address] 78695- 9490 Aug, [facility] [id number] [place] [address] 18564- 7488 Aug, [facility] [id number] [place] [address] 44468- 0873 Aug, [facility] [id number] [place] [address] 96947- 1901 Aug, Primary osteoarthritis of both knees M17.0 ; Abnormal blood creatinine level R79.9 ; Lumbago with sciatica, right side M54.41 and Pre- diabetes R73.03 [facility] [id number] [place] [address] 35064- 2389 July, Bipolar 2 disorder F31.81 ; JAKE (generalized anxiety disorder) F41.1 and Tobacco dependence F17.200 [facility] [id number] [place] [address] 16059- 8953 July, [facility] [id number] [place] [address] 08015- 3314 Jun, [facility] [id number] [place] [address] 08860- 5848 Jun, [facility] [id number] [place] [address] 16009- 0038 Jun, Abnormal blood creatinine level R79.9 [facility] [id number] [place] [address] 98968- 0768 Jun, Pre-diabetes R73.03 and Primary osteoarthritis of both knees M17.0 [facility] [id number] [place] [address] 10390- 8795 Jun, Pre-diabetes R73.03 ; Other chronic pain G89.29 ; Primary osteoarthritis of both knees M17.0 ; Drug-induced erectile dysfunction N52.2 and Tobacco dependence F17.200 [facility] [id number] [place] [address] 91317- 1829 May, [facility] [id number] [place] [address] 43168- 7369 May, [facility] [id number] [place] [address] 43889- 1913 May, [facility] [id number] [place] [address] 10894- 2038 May, [facility] [id number] [place] [address] 73652- 2648 May, [facility] [id number] [place] [address] 54348- 9236 May, [facility] [id number] [place] [address] 57698- 1742 May, Bipolar 2 disorder F31.81 ; JAKE (generalized anxiety disorder) F41.1 and Tobacco dependence F17.200 [facility] [id number] [place] [address] 84047- 0790 Jan, [facility] [id number] [place] [address] 72829- 5994 Jan, [facility] [id number] [place] [address] 38284- 0247 Dec, [facility] [id number] [place] [address] 46529- 4608 Dec, [facility] [id number] [place] [address] 06246- 9108 27 Nov, 2016 [facility] [id number] [place] [address] 93005- 4410 25 Nov, 2016 Other chronic pain G89.29 and Pain in left shoulder M25.512 [facility] [id number] [place] [address] 84182- 6871 05 Nov, 2016 Bipolar 2 disorder F31.81 and JAKE (generalized anxiety disorder) F41.1 [facility] [id number] [place] [address] 80277- 3613 04 Oct, 2016 Pre-diabetes R73.03 and Left anterior shoulder pain M25.512 [facility] [id number] [place] [address] 70398- 7355 Sep, [place] [id number] [place] [address] 14781- 0768 July, Lumbago with sciatica, right side M54.41 ; Left anterior shoulder pain M25.512 and Pain in right knee M25.561 [place] [id number] [place] [address] 97123- 2257 Jun, [place] [id number] [place] [address] 77744- 4257 Jun, assisted 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 ; Bipolar 2 disorder F31.81 and JAKE (generalized anxiety disorder) F41.1 [place] [id number] [place] [address] 05224- 1749 May, Low back pain M54.5 ; Pain in right knee M25.561 ; Pain in left knee M25.562 and Pre-diabetes R73.03 [place] [id number] [place] [address] 77693- 6375 May, [place] [id number] [place] [address] 01071- 4939 May, [place] [id number] [place] [address] 94230- 5789 May, Drug-induced erectile dysfunction N52.2 [place] [id number] [place] [address] 37984- 0575 Mar, [place] [id number] [place] [address] 99157- 4798 Mar, [place] [id number] [place] [address] 25934- 5986 Mar, Encounter for routine adult health examination with abnormal findings Z00.01 ; Low back pain M54.5 ; Other chronic pain G89.29 ; Pain in right knee M25.561 ; Pain in left knee M25.562 ; Family history of diabetes mellitus Z83.3 and Drug-induced erectile dysfunction N52.2 [facility] [id number] [place] [address] 88286- 2174 Mar, Bipolar 2 disorder F31.81 and JAKE (generalized anxiety disorder) F41.1 [facility] [id number] [place] [address] 88147- 6507 Mar, [facility] [id number] [place] [address] 41753- 4240 Feb, [facility] [id number] [place] [address] 34144- 1991 Feb, [facility] [address] 45252- 7981 Jan, [facility] [id number] [place] [address] 98246- 3543 Dec, [facility] [address] 05877- 7941 Dec, [facility] [id number] [place] [address] 06625- 2086 Dec, Bipolar 2 disorder F31.81 and JAKE (generalized anxiety disorder) F41.1 [facility] [id number] [place] [address] 75115- 6343 Nov, [facility] [id number] [place] [address] 55043- 3005 Oct, Bipolar 2 disorder F31.81 and JAKE (generalized anxiety disorder) F41.1 [facility] [id number] [place] [address] 17336- 0098 Oct, Anxiety, generalized F41.1 [facility] [id number] [place] [address] 76765- 8488 Oct, Generalized anxiety disorder F41.1 and Excessive excitability/irritability with unrest R45.89 [facility] [id number] [place] [address] 45354- 0200 Oct, [facility] [id number] [place] [address] 29705- 2447 Sep, [facility] [address] 46819- 2518 July, [facility] [id number] [place] [address] 68008- 9919 July, assisted 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 and Excessive excitability/ irritability with unrest R45.89 [facility] [id number] [place] [address] 84855- 7423 July, [facility] [address] 59346- 8807 July, Generalized anxiety disorder F41.1 [facility] [id number] [place] [address] 13402- 1718 May, [facility] [address] 36510- 7936 May, [facility] [id number] [place] [address] 17082- 2214 Mar, [facility] [id number] [place] [address] 20852- 9774 Feb, [facility] [id number] [place] [address] 33819- 0174 Jan, [facility] [id number] [place] [address] 04894- 8172 Jan, Generalized anxiety disorder F41.1 and Encounter for observation for other suspected diseases and conditions ruled out Z03.89 [facility] [address] 80851- 0126 Jan, Generalized anxiety disorder F41.1 [facility] [id number] [place] [address] 64567- 4171 Jan, [facility] [id number] [place] [address] 85758- 2612 Dec, Generalized anxiety disorder F41.1 [facility] [address] [facility] [id number] [place] [address]- 9200 Dec, Family history of pinworm infection Z83.1 [facility] [address] [facility] [id number] [place] [address]- 6334 Nov, Generalized anxiety disorder 300.02 ; No condition on [place] V71.09 and Back problem 724.9 IMMUNIZATIONS No Known Immunizations SOCIAL HISTORY Never Assessed REASON FOR VISIT f/u PLAN OF CARE Activity Details Follow Up 6 Months Reason: VITAL SIGNS Height 72 in 2017-08-12 Weight 211.2 lbs 2017-08-12 Heart Rate 96 bpm 2017-08-12 Respiratory Rate 20 2017-08-12 BMI 28.64 kg/m2 2017-08-12 Blood pressure systolic 122 mmHg 2017-08-12 Blood pressure diastolic 74 mmHg 2017-08-12 MEDICATIONS Medication Instructions Dosage Frequency Start Date End Date Duration Status Xanax XR 3 MG Orally Once a day for anxiety 1 tablet Mar, Active Xanax 1 MG Orally take at bedtime 1 tablet Mar, Active Viagra 25 MG Orally Once a day 1-2 tablet daily as needed before sexual activitiy 24h Active Metformin HCl 500 mg Orally 2 times a day TAKE ONE TABLET ONCE DAILY WITH EVENING MEAL FOR 7 DAYS THEN INCREASE TO ONE TABLET TWICE DAILY WITH EVENING MEAL 12h 90 days Not-Taking Seroquel 100 mg Orally at bedtime 1 tablet Oct, Active Meloxicam 15 mg Orally Once a day 1 tablet 24h Jun, Sep, 30 day(s) Not-Taking Chantix 1 MG Orally Take 1/2 tab per day for 3 days. Then take 1/2 tab twice a day for 4 days. On 05/13/17 take 1 tablet twice a day 1 tablet May, Not-Taking Lamictal 200 mg Orally Once a day 1 tablet 24h Oct, Active Celecoxib 200 MG TAKE ONE CAPSULE BY MOUTH ONCE DAILY (MUST HAVE APPOINTMENT FOR REFILL) 90 Not-Taking Lamotrigine 200 MG TAKE ONE TABLET BY MOUTH ONCE DAILY 30 Not- Taking RESULTS No Results PROCEDURES No Known procedures INSTRUCTIONS MEDICATIONS ADMINISTERED No Known Medications MEDICAL (GENERAL) HISTORY Type Description Date Medical History Anxiety Medical History depression Medical History Bilateral knee pain-needing repair Medical History Disc herniation in lumbar spine Medical History Fractured clavicle-healed incorrectly Surgical History Right shoulder rotator cuff repair Surgical History Left Shoulder reconstruction 2017 Hospitalization History Surgeries Hospitalization History Disc dislocation- [facility]
--- OUTSIDE RECORDS SUMMARY | 2018-06-19 07:48 | XMS REPORT ---
Author Author WASHINGTONEDMUNDONICOLLE Organization [facility] Address [address] [place] [address] Care Team Providers Care Loss Claim Clerk Name Role Phone DELAROSANICOLLE Dobbins Unavailable PROBLEMS Type Condition ICD9-CM Code PWY24-ES Code Onset Dates Condition Status SNOMED Code Problem JAKE (generalized anxiety disorder) F41.1 Active 87863371 Problem Bipolar 2 disorder F31.81 Active 98906254 Problem Primary osteoarthritis of both knees M17.0 Active 524041909 Problem Tobacco dependence F17.200 Active 62055813 Problem Other chronic pain G89.29 Active 27310390 Problem Drug-induced erectile dysfunction N52.2 Active 195719820 Problem Lumbago with sciatica, right side M54.41 Active 835515489 Problem Pre-diabetes R73.03 Active 839144856 ALLERGIES No Known Allergies ENCOUNTERS Encounter Location Date Diagnosis [facility] [id number] [place] [address] 96154- 3387 Jan, [facility] [id number] [place] [address] 55859- 5875 Sep, [facility] [id number] [place] [address] 35249- 8905 Sep, Primary osteoarthritis of both knees M17.0 ; Lumbago with sciatica, right side M54.41 ; Pre-diabetes R73.03 and Tobacco dependence F17.200 [facility] [id number] [place] [address] 44194- 6506 Aug, [facility] [id number] [place] [address] 10336- 5323 Aug, [facility] [id number] [place] [address] 97068- 7230 Aug, [facility] [id number] [place] [address] 83343- 1682 Aug, Primary osteoarthritis of both knees M17.0 ; Abnormal blood creatinine level R79.9 ; Lumbago with sciatica, right side M54.41 and Pre- diabetes R73.03 [facility] [id number] [place] [address] 73035- 3509 July, Bipolar 2 disorder F31.81 ; JAKE (generalized anxiety disorder) F41.1 and Tobacco dependence F17.200 [facility] [id number] [place] [address] 04872- 5460 July, [facility] [id number] [place] [address] 09262- 3322 Jun, [facility] [id number] [place] [address] 05953- 1338 Jun, [facility] [id number] [place] [address] 11682- 2879 Jun, Abnormal blood creatinine level R79.9 [facility] [id number] [place] [address] 56516- 6688 Jun, Pre-diabetes R73.03 and Primary osteoarthritis of both knees M17.0 [facility] [id number] [place] [address] 65309- 0486 Jun, Pre-diabetes R73.03 ; Other chronic pain G89.29 ; Primary osteoarthritis of both knees M17.0 ; Drug-induced erectile dysfunction N52.2 and Tobacco dependence F17.200 [facility] [id number] [place] [address] 80083- 3195 May, [facility] [id number] [place] [address] 84152- 4528 May, [facility] [id number] [place] [address] 71618- 5198 May, [facility] [id number] [place] [address] 13322- 4851 May, [facility] [id number] [place] [address] 94553- 0550 May, [facility] [id number] [place] [address] 11558- 1338 May, [facility] [id number] [place] [address] 83222- 1922 May, Bipolar 2 disorder F31.81 ; JAKE (generalized anxiety disorder) F41.1 and Tobacco dependence F17.200 [facility] [id number] [place] [address] 07377- 3238 Jan, [facility] [id number] [place] [address] 86028- 2380 Jan, [facility] [id number] [place] [address] 20804- 9911 Dec, [facility] [id number] [place] [address] 37966- 8121 Dec, [facility] [id number] [place] [address] 02636- 1334 Nov, [facility] [id number] [place] [address] 30924- 0395 Nov, Other chronic pain G89.29 and Pain in left shoulder M25.512 [facility] [id number] [place] [address] 84768- 6682 05 Nov, 2016 Bipolar 2 disorder F31.81 and JAKE (generalized anxiety disorder) F41.1 [facility] [id number] [place] [address] 29071- 1780 Oct, Pre-diabetes R73.03 and Left anterior shoulder pain M25.512 [facility] [id number] [place] [address] 26228- 7370 Sep, [facility] [id number] [place] [address] 35677- 8891 July, Lumbago with sciatica, right side M54.41 ; Left anterior shoulder pain M25.512 and Pain in right knee M25.561 [facility] [id number] [place] [address] 48791- 3430 Jun, [facility] [id number] [place] [address] 45787- 0344 Jun, 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 ; Bipolar 2 disorder F31.81 and JAKE (generalized anxiety disorder) F41.1 [facility] [facility] [address] 68967- 0867 May, Low back pain M54.5 ; Pain in right knee M25.561 ; Pain in left knee M25.562 and Pre-diabetes R73.03 [facility] [id number] [place] [address] 23715- 5159 May, [facility] [id number] [place] [address] 64026- 9973 May, [facility] [id number] [place] [address] 83217- 2412 May, Drug-induced erectile dysfunction N52.2 [facility] [id number] [place] [address] 76461- 6056 Mar, [facility] [id number] [place] [address] 05285- 7612 Mar, [facility] [id number] [place] [address] 59586- 2676 Mar, Encounter for routine adult health examination with abnormal findings Z00.01 ; Low back pain M54.5 ; Other chronic pain G89.29 ; Pain in right knee M25.561 ; Pain in left knee M25.562 ; Family history of diabetes mellitus Z83.3 and Drug-induced erectile dysfunction N52.2 [facility] [facility] [id number] [place] [address] 00529- 4346 Mar, Bipolar 2 disorder F31.81 and JAKE (generalized anxiety disorder) F41.1 [facility] [id number] [place] [address] 61037- 4407 Mar, [facility] [id number] [place] [address] 53678- 2982 Feb, [facility] [id number] [place] [address] 71547- 0805 Feb, [facility] [id number] [place] [address] 71160- 1033 Jan, [facility] [id number] [place] [address] 34945- 4185 Dec, [facility] [id number] [place] [address] 68173- 8932 Dec, [facility] [address] 68261- 1138 Dec, Bipolar 2 disorder F31.81 and JAKE (generalized anxiety disorder) F41.1 [facility] [id number] [place] [address] 59386- 5220 Nov, [facility] [id number] [place] [address] 44305- 6836 Oct, Bipolar 2 disorder F31.81 and JAKE (generalized anxiety disorder) F41.1 [facility] [id number] [place] [address] 20975- 3380 Oct, Anxiety, generalized F41.1 [facility] [id number] [place] [address] 32330- 9384 Oct, Generalized anxiety disorder F41.1 and Excessive excitability/irritability with unrest R45.89 [facility] [id number] [place] [address] 33283- 7515 Oct, [facility] [id number] [place] [address] 30763- 9096 Sep, [facility] [id number] [place] [address] 45126- 8276 July, [facility] [id number] [place] [address] 28775- 4524 July, 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 and Excessive excitability/ irritability with unrest R45.89 [facility] [id number] [place] [address] 81221- 6259 July, [facility] [id number] [place] [address] 94373- 5706 July, Generalized anxiety disorder F41.1 [facility] [id number] [place] [address] 14412- 2812 May, [facility] [id number] [place] [address] 93273- 2465 May, [facility] [id number] [place] [address] 21188- 2098 Mar, [facility] [id number] [place] [address] 36969- 5244 Feb, [facility] [id number] [place] [address] 40755- 5181 Jan, [facility] [id number] [place] [address] 09349- 1170 Jan, Generalized anxiety disorder F41.1 and Encounter for observation for other suspected diseases and conditions ruled out Z03.89 [facility] [id number] [place] [address] 74804- 7925 Jan, Generalized anxiety disorder F41.1 [facility] [id number] [place] [address] 69067- 3847 Jan, [facility] [id number] [place] [address] 83215- 6591 Dec, Generalized anxiety disorder F41.1 [facility] [id number] [place] [address] 55199- 5486 Dec, Family history of pinworm infection Z83.1 [facility] [place] [address] [facility] [id number] [place] [address]- 6184 Nov, Generalized anxiety disorder 300.02 ; No condition on [place] V71.09 and Back problem 724.9 IMMUNIZATIONS No Known Immunizations SOCIAL HISTORY Never Assessed REASON FOR VISIT Diabetes follow up. ELIJAH Evans, Patient states Glints is no longer working., Patient c/o pain left shoulder and back. PLAN OF CARE Activity Details Follow Up 3 Months, prn Reason: VITAL SIGNS Height 72 in 2017-06-30 Weight 218 lbs 2017-06-30 Temperature 97.5 degrees Fahrenheit 2017-06-30 Heart Rate 100 bpm 2017-06-30 Respiratory Rate 18 2017-06-30 BMI 29.56 kg/m2 2017-06-30 Blood pressure systolic 124 mmHg 2017-06-30 Blood pressure diastolic 78 mmHg 2017-06-30 MEDICATIONS Medication Instructions Dosage Frequency Start Date End Date Duration Status Lamotrigine 200 MG TAKE ONE TABLET BY MOUTH ONCE DAILY 30 Active Celecoxib 200 MG TAKE ONE CAPSULE BY MOUTH ONCE DAILY (MUST HAVE APPOINTMENT FOR REFILL) 90 Active Xanax 1 MG Orally take at bedtime 1 tablet Mar, 30 days Not- Taking Viagra 50 MG Orally Once a day 1-2 tablet daily as needed before sexual activitiy 24h 30 days Active Viagra 25 MG Orally Once a day 1-2 tablet daily as needed before sexual activitiy 24h 5 Active Xanax XR 3 MG Orally Once a day for anxiety 1 tablet Mar, 30 days Active Meloxicam 15 mg Orally Once a day 1 tablet 24h Jun, Sep, 30 day(s) Active Seroquel 100 mg Orally at bedtime 1 tablet Oct, 30 days Active Metformin HCl 500 mg Orally 2 times a day TAKE ONE TABLET ONCE DAILY WITH EVENING MEAL FOR 7 DAYS THEN INCREASE TO ONE TABLET TWICE DAILY WITH EVENING MEAL 12h 90 days Active Chantix 1 MG Orally Take 1/2 tab per day for 3 days. Then take 1/2 tab twice a day for 4 days. On 05/13/17 take 1 tablet twice a day 1 tablet May, Active Lamictal 200 mg Orally Once a day 1 tablet 24h Oct, Active RESULTS No Results PROCEDURES No Known [...] Hospitalization History Surgeries Hospitalization History Disc dislocation- [facility]
--- OUTSIDE RECORDS SUMMARY | 2018-06-19 07:48 | XMS REPORT ---
Author Author WASHINGTONEDMUNDONICOLLE Organization [facility] Address [address] [place] [address] Care Team Providers Care Alpine Patroller Name Role Phone DELAROSANICOLLE Dobbins Unavailable PROBLEMS Type Condition ICD9-CM Code VWQ02-RE Code Onset Dates Condition Status SNOMED Code Problem JAKE (generalized anxiety disorder) F41.1 Active 23692496 Problem Bipolar 2 disorder F31.81 Active 32583222 Problem Primary osteoarthritis of both knees M17.0 Active 988818631 Problem Tobacco dependence F17.200 Active 15297626 Problem Other chronic pain G89.29 Active 96621910 Problem Drug-induced erectile dysfunction N52.2 Active 348727293 Problem Lumbago with sciatica, right side M54.41 Active 595297942 Problem Pre-diabetes R73.03 Active 381113981 ALLERGIES No Information ENCOUNTERS Encounter Location Date Diagnosis [facility] [id number] [place] [address] 90777- 6498 Jan, [facility] [id number] [place] [address] 71773- 3852 Sep, [facility] [address] [place] [address] 43492- 0396 Sep, Primary osteoarthritis of both knees M17.0 ; Lumbago with sciatica, right side M54.41 ; Pre-diabetes R73.03 and Tobacco dependence F17.200 [facility] [address] [place] [address] 22240- 4256 Aug, [facility] [id number] [place] [address] 83332- 3265 Aug, [facility] [id number] [place] [address] 41183- 6506 Aug, [facility] [address] [place] [address] 36269- 0366 Aug, Primary osteoarthritis of both knees M17.0 ; Abnormal blood creatinine level R79.9 ; Lumbago with sciatica, right side M54.41 and Pre- diabetes R73.03 [facility] [id number] [place] [address] 21347- 5983 July, Bipolar 2 disorder F31.81 ; JAKE (generalized anxiety disorder) F41.1 and Tobacco dependence F17.200 [facility] [id number] [place] [address] 91418- 3450 July, [facility] [id number] [place] [address] 22158- 3145 Jun, [facility] [id number] [place] [address] 44768- 4053 Jun, [facility] [id number] [place] [address] 16420- 3732 Jun, Abnormal blood creatinine level R79.9 [facility] [id number] [place] [address] 30218- 7232 Jun, Pre-diabetes R73.03 and Primary osteoarthritis of both knees M17.0 [facility] [id number] [place] [address] 65664- 7408 Jun, Pre-diabetes R73.03 ; Other chronic pain G89.29 ; Primary osteoarthritis of both knees M17.0 ; Drug-induced erectile dysfunction N52.2 and Tobacco dependence F17.200 [facility] [address] [place] [address] 74218- 9085 May, [facility] [id number] [place] [address] 97123- 8155 May, [facility] [id number] [place] [address] 92842- 2768 May, [facility] [id number] [place] [address] 33809- 1112 May, [facility] [address] [place] [address] 03354- 6796 May, [facility] [id number] [place] [address] 64189- 9518 May, [facility] [id number] [place] [address] 58218- 9267 May, Bipolar 2 disorder F31.81 ; JAKE (generalized anxiety disorder) F41.1 and Tobacco dependence F17.200 [facility] [id number] [place] [address] 02844- 7372 Jan, [facility] [id number] [place] [address] 33388- 9565 Jan, [facility] [id number] [place] [address] 23130- 6994 Dec, [facility] [id number] [place] [address] 88472- 1310 Dec, [facility] [id number] [place] [address] 68162- 1271 Nov, [facility] [id number] [place] [address] 68544- 1189 Nov, Other chronic pain G89.29 and Pain in left shoulder M25.512 [facility] [id number] [place] [address] 50463- 1556 05 Nov, 2016 Bipolar 2 disorder F31.81 and JAKE (generalized anxiety disorder) F41.1 [facility] [id number] [place] [address] 20735- 7711 Oct, Pre-diabetes R73.03 and Left anterior shoulder pain M25.512 [facility] [id number] [place] [address] 96620- 2032 Sep, [facility] [id number] [place] [address] 60647- 6983 July, Lumbago with sciatica, right side M54.41 ; Left anterior shoulder pain M25.512 and Pain in right knee M25.561 [facility] [id number] [place] [address] 76091- 5598 Jun, [facility] [id number] [place] [address] 65479- 8868 Jun, 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 ; Bipolar 2 disorder F31.81 and JAKE (generalized anxiety disorder) F41.1 [facility] [id number] [place] [address] 08373- 2918 May, Low back pain M54.5 ; Pain in right knee M25.561 ; Pain in left knee M25.562 and Pre-diabetes R73.03 [facility] [id number] [place] [address] 56593- 2043 May, [facility] [id number] [place] [address] 34512- 7696 May, [facility] [id number] [place] [address] 25267- 5330 May, Drug-induced erectile dysfunction N52.2 [facility] [id number] [place] [address] 03231- 9143 Mar, [facility] [id number] [place] [address] 06636- 0438 Mar, [facility] [id number] [place] [address] 63250- 2055 Mar, Encounter for routine adult health examination with abnormal findings Z00.01 ; Low back pain M54.5 ; Other chronic pain G89.29 ; Pain in right knee M25.561 ; Pain in left knee M25.562 ; Family history of diabetes mellitus Z83.3 and Drug-induced erectile dysfunction N52.2 [place] [id number] [place] [address] 47298- 7126 Mar, Bipolar 2 disorder F31.81 and JAEK (generalized anxiety disorder) F41.1 [facility] [id number] [place] [address] 75081- 4968 Mar, [facility] [id number] [place] [address] 98302- 1267 Feb, [facility] [id number] [place] [address] 25121- 0524 Feb, [facility] [id number] [place] [address] 34779- 1471 Jan, [facility] [id number] [place] [address] 43807- 6027 Dec, [facility] [id number] [place] [address] 00308- 7308 Dec, [facility] [id number] [place] [address] 92662- 4918 Dec, Bipolar 2 disorder F31.81 and JAKE (generalized anxiety disorder) F41.1 [facility] [id number] [place] [address] 49774- 5879 Nov, [facility] [id number] [place] [address] 49383- 4449 Oct, Bipolar 2 disorder F31.81 and JAKE (generalized anxiety disorder) F41.1 [facility] [id number] [place] [address] 33903- 1858 Oct, Anxiety, generalized F41.1 [facility] [id number] [place] [address] 55816- 3599 Oct, Generalized anxiety disorder F41.1 and Excessive excitability/irritability with unrest R45.89 [facility] [id number] [place] [address] 82913- 8949 Oct, [facility] [id number] [place] [address] 17986- 7129 Sep, [facility] [address] [place] [address] 31023- 5873 July, [facility] [id number] [place] [address] 78673- 9663 July, 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 and Excessive excitability/ irritability with unrest R45.89 [facility] [id number] [place] [address] 82553- 5272 July, [facility] [id number] [place] [address] 57991- 9213 July, Generalized anxiety disorder F41.1 [facility] [id number] [place] [address] 70864- 1728 May, [facility] [id number] [place] [address] 00920- 6083 May, [facility] [id number] [place] [address] 76206- 6961 Mar, [facility] [id number] [place] [address] 31172- 9782 Feb, [facility] [id number] [place] [address] 11988- 8242 Jan, [facility] [id number] [place] [address] 70596- 2575 Jan, Generalized anxiety disorder F41.1 and Encounter for observation for other suspected diseases and conditions ruled out Z03.89 [facility] [id number] [place] [address] 45737- 5635 Jan, Generalized anxiety disorder F41.1 [facility] [id number] [place] [address] 84067- 9934 Jan, [facility] [id number] [place] [address] 70609- 7473 Dec, Generalized anxiety disorder F41.1 [facility] [id number] [place] [address] 45274- 2056 Dec, Family history of pinworm infection Z83.1 [facility] [address] [facility] [id number] [address]- 9841 Nov, Generalized anxiety disorder 300.02 ; No condition on [place] II V71.09 and Back problem 724.9 IMMUNIZATIONS No Known Immunizations SOCIAL HISTORY Never Assessed REASON FOR VISIT PLAN OF CARE VITAL SIGNS MEDICATIONS Unknown [...] Hospitalization History Surgeries Hospitalization History Disc dislocation- [facility]
--- OUTSIDE RECORDS SUMMARY | 2018-06-19 07:48 | XMS REPORT ---
Author Author WASHINGTONEDMUNDONICOLLE Organization [facility] Address [address] [place] [address] Care Team Providers Care Collections Rep Name Role Phone DELAROSANICOLLE Dobbins Unavailable PROBLEMS Type Condition ICD9-CM Code [id number] Code Onset Dates Condition Status SNOMED Code Problem JAKE (generalized anxiety disorder) F41.1 Active 58825833 Problem Bipolar 2 disorder F31.81 Active 56220391 Problem Primary osteoarthritis of both knees M17.0 Active 511827231 Problem Tobacco dependence F17.200 Active 17006007 Problem Other chronic pain G89.29 Active 36617006 Problem Drug-induced erectile dysfunction N52.2 Active 250492958 Problem Lumbago with sciatica, right side M54.41 Active 840341102 Problem Pre-diabetes R73.03 Active 972778010 ALLERGIES No Information ENCOUNTERS Encounter Location Date Diagnosis [facility] [id number] [place] [address] 80919- 1863 Jan, [facility] [id number] [place] [address] 11000- 2638 Sep, [facility] [id number] [place] [address] 44809- 5124 Sep, Primary osteoarthritis of both knees M17.0 ; Lumbago with sciatica, right side M54.41 ; Pre-diabetes R73.03 and Tobacco dependence F17.200 [facility] [id number] [place] [address] 59094- 4916 Aug, [facility] [id number] [place] [address] 15009- 3760 Aug, [facility] [id number] [place] [address] 21513- 5888 Aug, [facility] [id number] [place] [address] 93956- 6156 Aug, Primary osteoarthritis of both knees M17.0 ; Abnormal blood creatinine level R79.9 ; Lumbago with sciatica, right side M54.41 and Pre- diabetes R73.03 [facility] [id number] [place] [address] 85546- 0401 July, Bipolar 2 disorder F31.81 ; JAKE (generalized anxiety disorder) F41.1 and Tobacco dependence F17.200 [facility] [id number] [place] [address] 09579- 5593 July, [facility] [id number] [place] [address] 75299- 4767 Jun, [facility] [id number] [place] [address] 85114- 0386 Jun, [facility] [id number] [place] [address] 30527- 2144 Jun, Abnormal blood creatinine level R79.9 [facility] [id number] [place] [address] 78949- 7556 Jun, Pre-diabetes R73.03 and Primary osteoarthritis of both knees M17.0 [facility] [id number] [place] [address] 67412- 1757 Jun, Pre-diabetes R73.03 ; Other chronic pain G89.29 ; Primary osteoarthritis of both knees M17.0 ; Drug-induced erectile dysfunction N52.2 and Tobacco dependence F17.200 [facility] [id number] [place] [address] 47324- 8168 May, [facility] [id number] [place] [address] 98150- 3994 May, [facility] [id number] [place] [address] 17824- 7903 May, [facility] [id number] [place] [address] 94803- 5930 May, [facility] [id number] [place] [address] 24294- 9126 May, [facility] [id number] [place] [address] 82032- 0901 May, [facility] [id number] [place] [address] 67929- 1406 May, Bipolar 2 disorder F31.81 ; JAKE (generalized anxiety disorder) F41.1 and Tobacco dependence F17.200 [facility] [id number] [place] [address] 46275- 5567 Jan, [facility] [id number] [place] [address] 81638- 5895 Jan, [facility] [id number] [place] [address] 53442- 6842 Dec, [facility] [id number] [place] [address] 23108- 5419 Dec, [facility] [id number] [place] [address] 37152- 7590 Nov, [facility] [id number] [place] [address] 42310- 6114 Nov, Other chronic pain G89.29 and Pain in left shoulder M25.512 [facility] [id number] [place] [address] 54190- 7469 05 Nov, 2016 Bipolar 2 disorder F31.81 and JAKE (generalized anxiety disorder) F41.1 [facility] [id number] [place] [address] 93532- 0475 Oct, Pre-diabetes R73.03 and Left anterior shoulder pain M25.512 [facility] [id number] [place] [address] 43237- 3814 Sep, [facility] [id number] [place] [address] 31101- 8458 July, Lumbago with sciatica, right side M54.41 ; Left anterior shoulder pain M25.512 and Pain in right knee M25.561 [facility] [id number] [place] [address] 42214- 4381 Jun, [facility] [id number] [place] [address] 32633- 6250 Jun, 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 ; Bipolar 2 disorder F31.81 and JAKE (generalized anxiety disorder) F41.1 [facility] [id number] [place] [address] 81420- 0950 May, Low back pain M54.5 ; Pain in right knee M25.561 ; Pain in left knee M25.562 and Pre-diabetes R73.03 [facility] [id number] [place] [address] 92867- 0244 May, [facility] [id number] [place] [address] 27640- 1074 May, [facility] [id number] [place] [address] 54314- 5009 May, Drug-induced erectile dysfunction N52.2 [facility] [id number] [place] [address] 51334- 0043 Mar, [facility] [id number] [place] [address] 23098- 2464 Mar, [facility] [id number] [place] [address] 91354- 6021 Mar, Encounter for routine adult health examination with abnormal findings Z00.01 ; Low back pain M54.5 ; Other chronic pain G89.29 ; Pain in right knee M25.561 ; Pain in left knee M25.562 ; Family history of diabetes mellitus Z83.3 and Drug-induced erectile dysfunction N52.2 [facility] [id number] [place] [address] 54025- 5461 Mar, Bipolar 2 disorder F31.81 and JAKE (generalized anxiety disorder) F41.1 [facility] [id number] [place] [address] 62153- 2642 Mar, [facility] [id number] [place] [address] 75810- 8774 Feb, [facility] [id number] [place] [address] 56377- 7630 Feb, [facility] [id number] [place] [address] 45838- 2864 Jan, [facility] [id number] [place] [address] 35797- 3785 Dec, [facility] [id number] [place] [address] 88384- 8203 Dec, [facility] [id number] [place] [address] 35622- 3770 Dec, Bipolar 2 disorder F31.81 and JAKE (generalized anxiety disorder) F41.1 [facility] [id number] [place] [address] 85475- 5720 Nov, [facility] [id number] [place] [address] 70245- 2839 Oct, Bipolar 2 disorder F31.81 and JAKE (generalized anxiety disorder) F41.1 [facility] [id number] [place] [address] 72062- 9062 Oct, Anxiety, generalized F41.1 [facility] [id number] [place] [address] 47353- 8903 Oct, Generalized anxiety disorder F41.1 and Excessive excitability/irritability with unrest R45.89 [facility] [id number] [place] [address] 07158- 2412 Oct, [facility] [id number] [place] [address] 25949- 7891 Sep, [facility] [id number] [place] [address] 01301- 7706 July, [facility] [id number] [place] [address] 01628- 6826 July, 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 and Excessive excitability/ irritability with unrest R45.89 [facility] [id number] [place] [address] 57662- 8905 July, [facility] [id number] [place] [address] 22557- 4075 July, Generalized anxiety disorder F41.1 [facility] [id number] [place] [address] 58231- 5915 May, [facility] [id number] [place] [address] 23627- 9591 May, [facility] [id number] [place] [address] 81411- 8137 Mar, [facility] [id number] [place] [address] 97701- 6352 Feb, [facility] [id number] [place] [address] 39402- 0394 Jan, [facility] [id number] [place] [address] 13627- 0373 Jan, Generalized anxiety disorder F41.1 and Encounter for observation for other suspected diseases and conditions ruled out Z03.89 [facility] [id number] [place] [address] 95058- 4032 Jan, Generalized anxiety disorder F41.1 [facility] [id number] [place] [address] 84417- 6490 Jan, [facility] [id number] [place] [address] 32703- 1669 Dec, Generalized anxiety disorder F41.1 [facility] [id number] [place] [address] 61312- 4946 Dec, Family history of pinworm infection Z83.1 [facility] [address] [facility] [id number] [place] [address]- 9309 Nov, Generalized anxiety disorder 300.02 ; No condition on [place] II V71.09 and Back problem 724.9 IMMUNIZATIONS No Known Immunizations SOCIAL HISTORY Never Assessed REASON FOR VISIT Lab (walk-in) PLAN OF CARE VITAL SIGNS MEDICATIONS Unknown Medications RESULTS No Results PROCEDURES Procedure Date Ordered Result Body Site LAB NOT BILLED BY [facility] July 01, 2017 INSTRUCTIONS MEDICATIONS ADMINISTERED No Known Medications MEDICAL (GENERAL) HISTORY Type Description Date Medical History Anxiety Medical History depression Medical History Bilateral knee pain-needing repair Medical History Disc herniation in lumbar spine Medical History Fractured clavicle-healed incorrectly Surgical History Right shoulder rotator cuff repair Surgical History Left Shoulder reconstruction 2017 Hospitalization History Surgeries Hospitalization History Disc dislocation- [facility]
--- OUTSIDE RECORDS SUMMARY | 2018-06-19 07:48 | XMS REPORT ---
Author Author WASHINGTONEDMUNDONICOLLE Organization [facility] Address [address] [place] [address] Care Team Providers Care Senior Systems Analyst Name Role Phone DELAROSANICOLLE Dobbins Unavailable PROBLEMS Type Condition ICD9-CM Code [id number] Code Onset Dates Condition Status SNOMED Code Problem JAKE (generalized anxiety disorder) F41.1 Active 00042391 Problem Bipolar 2 disorder F31.81 Active 36642487 Problem Primary osteoarthritis of both knees M17.0 Active 366237688 Problem Tobacco dependence F17.200 Active 23016251 Problem Other chronic pain G89.29 Active 90366212 Problem Drug-induced erectile dysfunction N52.2 Active 139670941 Problem Lumbago with sciatica, right side M54.41 Active 339952782 Problem Pre-diabetes R73.03 Active 594498739 ALLERGIES No Information ENCOUNTERS Encounter Location Date Diagnosis [facility] [id number] [place] [address] 49917- 3625 Jan, [facility] [id number] [place] [address] 34938- 3522 Sep, [facility] [address] [place] [address] 42483- 3171 Sep, Primary osteoarthritis of both knees M17.0 ; Lumbago with sciatica, right side M54.41 ; Pre-diabetes R73.03 and Tobacco dependence F17.200 [facility] [address] [place] [address] 82989- 7776 Aug, [facility] [id number] [place] [address] 47514- 8751 Aug, [facility] [id number] [place] [address] 47254- 2344 Aug, [facility] [address] [place] [address] 68580- 5379 Aug, Primary osteoarthritis of both knees M17.0 ; Abnormal blood creatinine level R79.9 ; Lumbago with sciatica, right side M54.41 and Pre- diabetes R73.03 [facility] [id number] [place] [address] 08244- 6544 July, Bipolar 2 disorder F31.81 ; JAKE (generalized anxiety disorder) F41.1 and Tobacco dependence F17.200 [facility] [id number] [place] [address] 88119- 8351 July, [facility] [id number] [place] [address] 89926- 3298 Jun, [facility] [id number] [place] [address] 69015- 7859 Jun, [facility] [id number] [place] [address] 01656- 2343 Jun, Abnormal blood creatinine level R79.9 [facility] [id number] [place] [address] 29826- 5073 Jun, Pre-diabetes R73.03 and Primary osteoarthritis of both knees M17.0 [facility] [id number] [place] [address] 64882- 7609 Jun, Pre-diabetes R73.03 ; Other chronic pain G89.29 ; Primary osteoarthritis of both knees M17.0 ; Drug-induced erectile dysfunction N52.2 and Tobacco dependence F17.200 [facility] [address] [place] [address] 78240- 4513 May, [facility] [id number] [place] [address] 34040- 9142 May, [facility] [id number] [place] [address] 26502- 9601 May, [facility] [id number] [place] [address] 02587- 6560 May, [facility] [address] [place] [address] 39422- 3666 May, [facility] [id number] [place] [address] 47255- 3230 May, [facility] [id number] [place] [address] 94954- 2719 May, Bipolar 2 disorder F31.81 ; JAKE (generalized anxiety disorder) F41.1 and Tobacco dependence F17.200 [facility] [id number] [place] [address] 33554- 3805 Jan, [facility] [id number] [place] [address] 52288- 7681 Jan, [facility] [id number] [place] [address] 76069- 2941 Dec, [facility] [id number] [place] [address] 97089- 3747 Dec, [facility] [id number] [place] [address] 36683- 0155 Nov, [facility] [id number] [place] [address] 04437- 5585 Nov, Other chronic pain G89.29 and Pain in left shoulder M25.512 [facility] [id number] [place] [address] 02926- 0957 05 Nov, 2016 Bipolar 2 disorder F31.81 and JAKE (generalized anxiety disorder) F41.1 [facility] [id number] [place] [address] 48897- 0541 Oct, Pre-diabetes R73.03 and Left anterior shoulder pain M25.512 [facility] [id number] [place] [address] 65370- 6615 Sep, [facility] [id number] [place] [address] 45307- 9852 July, Lumbago with sciatica, right side M54.41 ; Left anterior shoulder pain M25.512 and Pain in right knee M25.561 [facility] [id number] [place] [address] 05232- 7160 Jun, [facility] [id number] [place] [address] 08030- 1667 Jun, 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 ; Bipolar 2 disorder F31.81 and JAKE (generalized anxiety disorder) F41.1 [facility] [id number] [place] [address] 62902- 7139 May, Low back pain M54.5 ; Pain in right knee M25.561 ; Pain in left knee M25.562 and Pre-diabetes R73.03 [facility] [id number] [place] [address] 17365- 5616 May, [facility] [id number] [place] [address] 79847- 4551 May, [facility] [id number] [place] [address] 09141- 3091 May, Drug-induced erectile dysfunction N52.2 [facility] [id number] [place] [address] 51336- 2863 Mar, [facility] [id number] [place] [address] 30188- 2421 Mar, [facility] [id number] [place] [address] 62163- 1623 Mar, Encounter for routine adult health examination with abnormal findings Z00.01 ; Low back pain M54.5 ; Other chronic pain G89.29 ; Pain in right knee M25.561 ; Pain in left knee M25.562 ; Family history of diabetes mellitus Z83.3 and Drug-induced erectile dysfunction N52.2 [facility] [id number] [place] [address] 44211- 5000 Mar, Bipolar 2 disorder F31.81 and JAKE (generalized anxiety disorder) F41.1 [facility] [id number] [place] [address] 31574- 7602 Mar, [facility] [id number] [place] [address] 74889- 6179 Feb, [facility] [id number] [place] [address] 42873- 5383 Feb, [facility] [id number] [place] [address] 85256- 5318 Jan, [facility] [id number] [place] [address] 86948- 9036 Dec, [facility] [id number] [place] [address] 90140- 9004 Dec, [facility] [id number] [place] [address] 86679- 4288 Dec, Bipolar 2 disorder F31.81 and JAKE (generalized anxiety disorder) F41.1 [facility] [id number] [place] [address] 61181- 8014 Nov, [facility] [id number] [place] [address] 76671- 1700 Oct, Bipolar 2 disorder F31.81 and JAKE (generalized anxiety disorder) F41.1 [facility] [id number] [place] [address] 45173- 8544 Oct, Anxiety, generalized F41.1 [facility] [id number] [place] [address] 64235- 1671 Oct, Generalized anxiety disorder F41.1 and Excessive excitability/irritability with unrest R45.89 [facility] [id number] [place] [address] 55736- 8124 Oct, [facility] [id number] [place] [address] 38835- 3402 Sep, [facility] [address] [place] [address] 64863- 6851 July, [facility] [id number] [place] [address] 63343- 4055 July, 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 and Excessive excitability/ irritability with unrest R45.89 [facility] [id number] [place] [address] 13315- 2624 July, [facility] [id number] [place] [address] 17394- 8890 July, Generalized anxiety disorder F41.1 [facility] [id number] [place] [address] 32570- 9859 May, [facility] [id number] [place] [address] 36232- 7241 May, [facility] [id number] [place] [address] 42540- 0646 Mar, [facility] [id number] [place] [address] 34553- 7788 Feb, [facility] [id number] [place] [address] 11875- 9886 Jan, [facility] [id number] [place] [address] 86206- 0445 Jan, Generalized anxiety disorder F41.1 and Encounter for observation for other suspected diseases and conditions ruled out Z03.89 [facility] [id number] [place] [address] 62566- 4599 Jan, Generalized anxiety disorder F41.1 [facility] [id number] [place] [address] 70886- 1853 Jan, [facility] [id number] [place] [address] 27731- 1936 Dec, Generalized anxiety disorder F41.1 [facility] [id number] [place] [address] 36637- 6986 Dec, Family history of pinworm infection Z83.1 [facility] [address] [facility] [id number] [place] [address]- 3720 Nov, Generalized anxiety disorder 300.02 ; No condition on [place] II V71.09 and Back problem 724.9 IMMUNIZATIONS No Known Immunizations SOCIAL HISTORY Never Assessed REASON FOR VISIT lab PLAN OF CARE VITAL SIGNS MEDICATIONS Unknown [...] Hospitalization History Surgeries Hospitalization History Disc dislocation- [facility]
--- OUTSIDE RECORDS SUMMARY | 2018-06-19 07:49 | XMS REPORT ---
Author Author NICOLLE DELAROSA Organization [facility] Address [address] [place] [address] Care Team Providers Care Braider Setter Name Role Phone DELAROSAEDMUNDO DobbinsELE Unavailable PROBLEMS Type Condition ICD9-CM Code MGI00-EC Code Onset Dates Condition Status SNOMED Code Problem JAKE (generalized anxiety disorder) F41.1 Active 68256466 Problem Bipolar 2 disorder F31.81 Active 98375445 Problem Primary osteoarthritis of both knees M17.0 Active 888083340 Problem Tobacco dependence F17.200 Active 18348199 Problem Other chronic pain G89.29 Active 32099020 Problem Drug-induced erectile dysfunction N52.2 Active 293138880 Problem Lumbago with sciatica, right side M54.41 Active 746757913 Problem Pre-diabetes R73.03 Active 028378609 ALLERGIES No Known Allergies ENCOUNTERS Encounter Location Date Diagnosis [place] [id number] [address] July, [facility] [id number] [place] [address] 46446- 3309 Jun, [facility] [id number] [place] [address] 34787- 2843 Jun, [facility] [id number] [place] [address] 24964- 4128 Jun, Abnormal blood creatinine level R79.9 [facility] [address] 64143- 9647 Jun, Pre-diabetes R73.03 and Primary osteoarthritis of both knees M17.0 [facility] [id number] [place] [address] 03484- 9800 Jun, Pre-diabetes R73.03 ; Other chronic pain G89.29 ; Primary osteoarthritis of both knees M17.0 ; Drug-induced erectile dysfunction N52.2 and Tobacco dependence F17.200 [facility] [id number] [place] [address] 66592- 0763 May, [facility] [id number] [place] [address] 97867- 7757 May, [facility] [id number] [place] [address] 88795- 5946 May, [facility] [id number] [place] [address] 42092- 6364 May, [facility] [id number] [place] [address] 00109- 2081 May, [facility] [id number] [place] [address] 43268- 0838 May, [facility] [id number] [place] [address] 31089- 2761 May, Bipolar 2 disorder F31.81 ; JAKE (generalized anxiety disorder) F41.1 and Tobacco dependence F17.200 [facility] [id number] [place] [address] 64161- 4098 Jan, [facility] [id number] [place] [address] 99343- 3632 Jan, [facility] [id number] [place] [address] 80810- 4490 Dec, [facility] [id number] [place] [address] 49851- 2016 Dec, [facility] [id number] [place] [address] 92619- 8951 Nov, [facility] [id number] [place] [address] 06676- 3375 Nov, Other chronic pain G89.29 and Pain in left shoulder M25.512 [facility] [id number] [place] [address] 04073- 2680 Nov, Bipolar 2 disorder F31.81 and JAKE (generalized anxiety disorder) F41.1 [place] [id number] [place] [address] 52842- 2617 Oct, Pre-diabetes R73.03 and Left anterior shoulder pain M25.512 [place] [address] 96429- 2316 Sep, [place] [address] 52770- 8463 July, Lumbago with sciatica, right side M54.41 ; Left anterior shoulder pain M25.512 and Pain in right knee M25.561 [place] [id number] [place] [address] 61072- 7753 Jun, [place] [address] 68118- 0248 Jun, alf 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 ; Bipolar 2 disorder F31.81 and JAKE (generalized anxiety disorder) F41.1 [place] [id number] [place] [address] 37019- 7304 May, Low back pain M54.5 ; Pain in right knee M25.561 ; Pain in left knee M25.562 and Pre-diabetes R73.03 [place] [id number] [place] [address] 04628- 0383 May, [place] [id number] [place] [address] 05411- 1644 May, [place] [address] 35008- 5441 May, Drug-induced erectile dysfunction N52.2 [place] [id number] [place] [address] 95646- 5941 Mar, [place] [address] 20081- 7712 Mar, [facility] [address] [address] Mar, Encounter for routine adult health examination with abnormal findings Z00.01 ; Low back pain M54.5 ; Other chronic pain G89.29 ; Pain in right knee M25.561 ; Pain in left knee M25.562 ; Family history of diabetes mellitus Z83.3 and Drug-induced erectile dysfunction N52.2 [facility] [id number] [place] [address] 58888- 0040 05 Mar, 2016 Bipolar 2 disorder F31.81 and JAKE (generalized anxiety disorder) F41.1 [facility] [id number] [place] [address] 84051- 9212 Mar, [facility] [id number] [place] [address] 16882- 4610 Feb, [facility] [id number] [place] [address] 74577- 1679 Feb, [facility] [id number] [place] [address] 49208- 0773 Jan, [facility] [id number] [place] [address] 62417- 2253 Dec, [facility] [id number] [address]- 8645 Dec, [facility] [id number] [place] [address] 74970- 2504 Dec, Bipolar 2 disorder F31.81 and JAKE (generalized anxiety disorder) F41.1 [facility] [id number] [place] [address] 64141- 4418 Nov, [facility] [id number] [place] [address] 10276- 3765 Oct, Bipolar 2 disorder F31.81 and JAKE (generalized anxiety disorder) F41.1 [facility] [id number] [address] Oct, Anxiety, generalized F41.1 [facility] [id number] [place] [address] 19890- 7876 Oct, Generalized anxiety disorder F41.1 and Excessive excitability/irritability with unrest R45.89 [facility] [id number] [place] [address] 99125- 3830 Oct, [facility] [id number] [place] [address] 45318- 9724 Sep, [facility] [id number] [place] [address] 55224- 5500 July, [facility] [id number] [place] [address] 15189- 3225 July, alf 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 and Excessive excitability/ irritability with unrest R45.89 [facility] [id number] [place] [address] 90685- 3672 July, [facility] [id number] [place] [address] 68410- 3738 July, Generalized anxiety disorder F41.1 [facility] [id number] [place] [address] 42091- 6312 May, [facility] [id number] [place] [address] 50215- 3820 May, [facility] [id number] [place] [address] 45351- 4384 Mar, [facility] [id number] [place] [address] 53777- 9280 Feb, [facility] [id number] [place] [address] 64292- 7372 Jan, [facility] [address] [address]- 0507 Jan, Generalized anxiety disorder F41.1 and Encounter for observation for other suspected diseases and conditions ruled out Z03.89 [facility] [address], [place] [address]- 4433 Jan, Generalized anxiety disorder F41.1 [facility] [address] [address]- 0798 Jan, [facility] [address] [place] [address]- 8750 Dec, Generalized anxiety disorder F41.1 [facility] [address] [address]- 3028 Dec, Family history of pinworm infection Z83.1 [place] [address], [place] [address]- 2388 Nov, Generalized anxiety disorder 300.02 ; No condition on [place] II V71.09 and Back problem 724.9 IMMUNIZATIONS No Known Immunizations SOCIAL HISTORY Never Assessed REASON FOR VISIT Arm Pain, pt. states left arm pain that is getting worse---[place],[facility] PLAN OF CARE Activity Details Follow Up prn Reason: VITAL SIGNS Height 72 in 2016-12-23 Weight 197.8 lbs 2016-12-23 Temperature 98.0 degrees Fahrenheit 2016-12-23 Heart Rate 72 bpm 2016-12-23 Respiratory Rate 18 2016-12-23 BMI 26.82 kg/m2 2016-12-23 Blood pressure systolic 131 mmHg 2016-12-23 Blood pressure diastolic 77 mmHg 2016-12-23 MEDICATIONS Medication Instructions Dosage Frequency Start Date End Date Duration Status Lamictal 200 mg Orally Once a day 1 tablet 24h Oct, Active Seroquel 100 mg Orally at bedtime 1 tablet Oct, Active Xanax XR 3 MG Orally Once a day for anxiety 1 tablet Mar, Active Xanax 1 MG Orally take at bedtime 1 tablet Mar, Active Metformin HCl 500 MG Orally one a day w/ evening meal for 1 week then 1 tablet twice daily w/ meals 1 tablet 90 Active Viagra 25 MG Orally Once a day 1-2 tablet daily as needed before sexual activitiy 24h 5 Active Celecoxib 200 mg Orally Once a day 1 capsule 24h Feb, Active RESULTS Name Result Date Reference Range MRI : Upper Ext Joint w/o Contrast 2016-12-31 PROCEDURES No Known procedures INSTRUCTIONS MEDICATIONS ADMINISTERED No Known Medications MEDICAL (GENERAL) HISTORY Type Description Date Medical History Anxiety Medical History depression Medical History Bilateral knee pain-needing repair Medical History Disc herniation in lumbar spine Medical History Fractured clavicle-healed incorrectly Surgical History Right shoulder rotator cuff repair Surgical History Left Shoulder reconstruction 2017 Hospitalization History Surgeries Hospitalization History Disc dislocation- [facility]
--- OUTSIDE RECORDS SUMMARY | 2018-06-19 07:49 | XMS REPORT ---
Author Author DELAROSAEDMUNDONICOLLE Organization [facility] Address [address] [place] [address] Care Team Providers Care Garage Mechanic Name Role Phone DELAROSANICOLLE Dobbins Unavailable PROBLEMS Type Condition ICD9-CM Code IHY82-RT Code Onset Dates Condition Status SNOMED Code Problem JAKE (generalized anxiety disorder) F41.1 Active 84274228 Problem Bipolar 2 disorder F31.81 Active 66416118 Problem Primary osteoarthritis of both knees M17.0 Active 349847057 Problem Tobacco dependence F17.200 Active 53572101 Problem Other chronic pain G89.29 Active 41429384 Problem Drug-induced erectile dysfunction N52.2 Active 242620927 Problem Lumbago with sciatica, right side M54.41 Active 745978352 Problem Pre-diabetes R73.03 Active 730925189 ALLERGIES No Information ENCOUNTERS Encounter Location Date Diagnosis [facility] [id number] [place] [address] 83292- 0992 Jan, [facility] [address] [id number] [place] [address] 92471- 3994 Sep, Primary osteoarthritis of both knees M17.0 ; Lumbago with sciatica, right side M54.41 ; Pre-diabetes R73.03 and Tobacco dependence F17.200 [facility] [address] [place] [address] 56928- 0459 Aug, [facility] [id number] [place] [address] 35694- 2529 Aug, [facility] [id number] [place] [address] 83101- 3406 Aug, [facility] [address] [place] [address] 14236- 2759 Aug, Primary osteoarthritis of both knees M17.0 ; Abnormal blood creatinine level R79.9 ; Lumbago with sciatica, right side M54.41 and Pre- diabetes R73.03 [facility] [id number] [place] [address] 19673- 5535 July, Bipolar 2 disorder F31.81 ; JAKE (generalized anxiety disorder) F41.1 and Tobacco dependence F17.200 [facility] [address] 92013- 5281 July, [facility] [id number] [place] [address] 50848- 9139 Jun, [facility] [address] 92660- 9007 Jun, [facility] [address] 65943- 4845 Jun, Abnormal blood creatinine level R79.9 [facility] [id number] [place] [address] 25065- 6236 Jun, Pre-diabetes R73.03 and Primary osteoarthritis of both knees M17.0 [facility] [id number] [place] [address] 17898- 8937 Jun, Pre-diabetes R73.03 ; Other chronic pain G89.29 ; Primary osteoarthritis of both knees M17.0 ; Drug-induced erectile dysfunction N52.2 and Tobacco dependence F17.200 [facility] [id number] [place] [address] 86846- 7152 May, [facility] [id number] [place] [address] 67607- 7255 May, [facility] [id number] [place] [address] 42276- 0339 May, [facility] [id number] [place] [address] 88830- 5933 May, [facility] [id number] [place] [address] 94940- 7498 May, [facility] [id number] [place] [address] 00337- 2282 May, [facility] [id number] [place] [address] 32622- 9259 May, Bipolar 2 disorder F31.81 ; JAKE (generalized anxiety disorder) F41.1 and Tobacco dependence F17.200 [facility] [id number] [place] [address] 47644- 9609 Jan, [facility] [id number] [place] [address] 20643- 8801 Jan, [facility] [id number] [place] [address] 71793- 6719 Dec, [facility] [id number] [place] [address] 91530- 0201 Dec, [facility] [id number] [place] [address] 33838- 7009 Nov, [facility] [id number] [place] [address] 12194- 1749 Nov, Other chronic pain G89.29 and Pain in left shoulder M25.512 [facility] [id number] [place] [address] 04027- 3459 Nov, Bipolar 2 disorder F31.81 and JAKE (generalized anxiety disorder) F41.1 [facility] [id number] [place] [address] 13601- 9892 Oct, Pre-diabetes R73.03 and Left anterior shoulder pain M25.512 [facility] [id number] [place] [address] 68984- 9412 Sep, [facility] [id number] [place] [address] 65291- 0975 July, Lumbago with sciatica, right side M54.41 ; Left anterior shoulder pain M25.512 and Pain in right knee M25.561 [place] [id number] [place] [address] 38064- 2902 Jun, [place] [address] 95524- 7481 Jun, [facility] 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 ; Bipolar 2 disorder F31.81 and JAKE (generalized anxiety disorder) F41.1 [place] [address] 55565- 5025 May, Low back pain M54.5 ; Pain in right knee M25.561 ; Pain in left knee M25.562 and Pre-diabetes R73.03 [place] [address] 53855- 3799 May, [place] [address] [id number] [place] [address] 13234- 1578 May, [place] [address] 31543- 9464 May, Drug-induced erectile dysfunction N52.2 [place] [id number] [place] [address] 32919- 5370 Mar, [place] [id number] [place] [address] 13917- 0751 Mar, [place] [id number] [place] [address] 06653- 5053 Mar, Encounter for routine adult health examination with abnormal findings Z00.01 ; Low back pain M54.5 ; Other chronic pain G89.29 ; Pain in right knee M25.561 ; Pain in left knee M25.562 ; Family history of diabetes mellitus Z83.3 and Drug-induced erectile dysfunction N52.2 [place] [id number] [place] [address] 68335- 7603 Mar, Bipolar 2 disorder F31.81 and JAKE (generalized anxiety disorder) F41.1 [place] [address] [place] [address] [address]- 0383 Mar, [facility] [address] [place] [address] 33243- 5301 Feb, [facility] [id number] [place] [address] 282390- 1843 Feb, [facility] [id number] [place] [address] 446338- 7190 Jan, [facility] [id number] [place] [address] 46443- 8662 Dec, [facility] [id number] [place] [address] 767031- 7739 Dec, [facility] [id number] [place] [address] 05338- 1716 Dec, Bipolar 2 disorder F31.81 and JAKE (generalized anxiety disorder) F41.1 [facility] [id number] [place] [address] 09256- 7940 Nov, [facility] [id number] [place] [address] 35647- 1080 Oct, Bipolar 2 disorder F31.81 and JAKE (generalized anxiety disorder) F41.1 [facility] [id number] [place] [address] 60074- 1827 Oct, Anxiety, generalized F41.1 [facility] [id number] [place] [address] 08744- 7706 Oct, Generalized anxiety disorder F41.1 and Excessive excitability/irritability with unrest R45.89 [facility] [id number] [place] [address] 09941- 6169 Oct, [facility] [id number] [place] [address] 880531- 1263 Sep, [facility] [address] [place] [address] 75544- 1948 July, [facility] [address] [place] [address] 25082- 9935 July, intermediate frame tender 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 and Excessive excitability/ irritability with unrest R45.89 [facility] [id number] [place] [address] 55180- 1366 July, [facility] [id number] [place] [address] 65223- 8752 July, Generalized anxiety disorder F41.1 [facility] [id number] [place] [address] 49162- 8894 May, [facility] [id number] [place] [address] 27944- 0534 May, [facility] [id number] [place] [address] 06426- 0593 Mar, [facility] [id number] [place] [address] 92219- 1610 Feb, [facility] [id number] [place] [address] 39888- 8056 Jan, [facility] [id number] [place] [address] 63993- 8061 Jan, Generalized anxiety disorder F41.1 and Encounter for observation for other suspected diseases and conditions ruled out Z03.89 [facility] [id number] [place] [address] 76740- 5303 Jan, Generalized anxiety disorder F41.1 [facility] [id number] [place] [address] 96638- 5548 Jan, [facility] [id number] [place] [address] 66103- 2494 Dec, Generalized anxiety disorder F41.1 [facility] [address] [place] [address] 93087- 9990 Dec, Family history of pinworm infection Z83.1 [facility] [address] [address] 28 Nov, 2014 Generalized anxiety disorder 300.02 ; No condition on [place] II V71.09 and Back problem 724.9 IMMUNIZATIONS No Known Immunizations SOCIAL HISTORY Never Assessed REASON FOR VISIT Refill request PLAN OF CARE VITAL SIGNS MEDICATIONS Medication Instructions Dosage Frequency Start Date End Date Duration Status Viagra 25 MG Orally Once a day 1-2 tablet daily as needed before sexual activitiy 24h 5 Active RESULTS No Results PROCEDURES No Known [...] Surgeries Hospitalization History Disc dislocation- [facility]
--- OUTSIDE RECORDS SUMMARY | 2018-06-19 07:49 | XMS REPORT ---
Author Author NICOLLE DELAROSA Organization [facility] Address [address] [place] [address] Care Team Providers Care Highway Landscape Architect Name Role Phone NICOLLE DELAROSA Unavailable PROBLEMS Type Condition ICD9-CM Code PTS90-NU Code Onset Dates Condition Status SNOMED Code Problem Family history of diabetes mellitus Z83.3 Active 411684665 Problem Low back pain M54.5 Active 416088003 Problem Drug-induced erectile dysfunction N52.2 Active 111055721 Problem Bipolar 2 disorder F31.81 Active 87295012 Problem JAKE (generalized anxiety disorder) F41.1 Active 48927351 Problem Lumbago with sciatica, right side M54.41 Active 805111687 Problem Pre-diabetes R73.03 Active 712678210 Problem Pain in right knee M25.561 Active 59795152 Problem Pain in left knee M25.562 Active 26711086 Problem Encounter for routine adult health examination with abnormal findings Z00.01 Active 812295658 Problem Other chronic pain G89.29 Active 26761583 ALLERGIES Unknown Allergies SOCIAL HISTORY No smoking Hx information available PLAN OF CARE VITAL SIGNS MEDICATIONS Medication Instructions Dosage Frequency Start Date End Date Duration Status Viagra 25 MG Orally Once a day 1-2 tablet daily as needed before sexual activitiy 24h Mar, May, 30 days Active RESULTS No Results PROCEDURES No Known procedures IMMUNIZATIONS No Known Immunizations
--- OUTSIDE RECORDS SUMMARY | 2018-06-19 07:49 | XMS REPORT ---
Author Author CATHY MANCINI [facility] eClinical[employer] Address Unknown Phone Unavailable Care Team Providers Care Varnisher Plasticoater Name Role Phone CATHY MANCINI CP Unavailable Allergies No Known Allergies Problems Problem Type Condition Code Onset Dates Condition Status Assessment Anxiety, generalized F41.1 Active Medications No Known Medications Procedures Procedure Coding System Code Date Psych diagnostic evaluation, new patient CPT-4 25465 Nov 07, 2015 Results No Known Results Summary Purpose eClinicalWorks Submission
--- OUTSIDE RECORDS SUMMARY | 2018-06-19 07:49 | XMS REPORT ---
Author Author STEVAN MARTÍNEZ [facility] eClinical[employer] Address Unknown Phone Unavailable Care Team Providers Care Senior Sustainability Consultant Name Role Phone STEVAN MARTÍNEZ Unavailable Allergies No Known Allergies Problems No Known Problems Medications Medication Code System Code Instructions Start Date End Date Status Dosage Xanax XR [facility] [address]-09 3 MG Orally 3 times a day as needed Jan 30, 2015 1 tablet Results No Known Results Summary Purpose eClinicalWorks Submission
--- OUTSIDE RECORDS SUMMARY | 2018-06-19 07:49 | XMS REPORT ---
Author Author STEVAN MARTÍNEZ Organization [employer] Address Unknown Phone Unavailable Care Team Providers Care Mattress Filling Machine Tender Name Role Phone STEVAN MARTÍNEZ Unavailable Allergies No Known Allergies Problems No Known Problems Medications No Known Medications Results No Known Results Summary Purpose [employer] Submission
--- OUTSIDE RECORDS SUMMARY | 2018-06-19 07:49 | XMS REPORT ---
Author Author STEVAN MARTÍNEZ [facility] [employer] Address Unknown Phone Unavailable Care Team Providers Care Software Engineer Kernel Name Role Phone STEVAN MARTÍNEZ Unavailable Allergies No Known Allergies Problems No Known Problems Medications Medication Code System Code Instructions Start Date End Date Status Dosage Xanax XR [facility] [address]-80 3 MG Orally 3 times a day as needed Jan 30, 2015 1 tablet Results No Known Results Summary Purpose [employer] Submission
--- OUTSIDE RECORDS SUMMARY | 2018-06-19 07:49 | XMS REPORT ---
Author Author YANDY WATT Organization [employer] Address Unknown Phone Unavailable Care Team Providers Care Stitch Bonding Machine Tender Name Role Phone YANDY WATT CP Unavailable Allergies No Known Allergies Problems No Known Problems Medications Medication Code System Code Instructions Start Date End Date Status Dosage Xanax [facility] [address]-01 2 MG Orally witth the 1 mg tablet Three times a day Apr 18, 2015 1 tablet Xanax [facility] [address]-74 1 MG Orally with the 2mg tablet Three times a day Apr 18, 2015 1 tablet Results No Known Results Summary Purpose [employer] Submission
--- OUTSIDE RECORDS SUMMARY | 2018-06-19 07:49 | XMS REPORT ---
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 Name Role Phone CISCO ALEYDA Unavailable PROBLEMS Type Condition ICD9-CM Code QRT42-CX Code Onset Dates Condition Status SNOMED Code Problem JAKE (generalized anxiety disorder) F41.1 Active 57801895 Problem Bipolar 2 disorder F31.81 Active 04798079 Problem Primary osteoarthritis of both knees M17.0 Active 543677236 Problem Tobacco dependence F17.200 Active 68965029 Problem Other chronic pain G89.29 Active 55066075 Problem Drug-induced erectile dysfunction N52.2 Active 024140383 Problem Lumbago with sciatica, right side M54.41 Active 808505410 Problem Pre-diabetes R73.03 Active 066039620 ALLERGIES No Information ENCOUNTERS Encounter Location Date Diagnosis [facility], [place] [id number] [place] [address] 63008- 8115 Jan, [facility], [place] [id number] [place] [address] 80259- 6968 Sep, Primary osteoarthritis of both knees M17.0 ; Lumbago with sciatica, right side M54.41 ; Pre-diabetes R73.03 and Tobacco dependence F17.200 [facility], [place] [id number] [place] [address] 87821- 2529 Aug, [facility], [place] [id number] [place] [address] 10870- 6442 Aug, [facility], [place] [id number] [place] [address] 77903- 6033 Aug, [facility], [place] [id number] [place] [address] 44858- 5517 Aug, Primary osteoarthritis of both knees M17.0 ; Abnormal blood creatinine level R79.9 ; Lumbago with sciatica, right side M54.41 and Pre- diabetes R73.03 [facility], [place] [id number] [place] [address] 34015- 7463 July, Bipolar 2 disorder F31.81 ; JAKE (generalized anxiety disorder) F41.1 and Tobacco dependence F17.200 [facility], [place] [address] 29215- 0218 July, [facility] [place] [id number] [place] [address] 12655- 1964 Jun, [facility], [place] [address] 42394- 3740 Jun, [facility], [place] [address] 74882- 7243 Jun, Abnormal blood creatinine level R79.9 [facility], [place] [id number] [place] [address] 86186- 0342 Jun, Pre-diabetes R73.03 and Primary osteoarthritis of both knees M17.0 [facility], [place] [id number] [place] [address] 40359- 8123 Jun, Pre-diabetes R73.03 ; Other chronic pain G89.29 ; Primary osteoarthritis of both knees M17.0 ; Drug-induced erectile dysfunction N52.2 and Tobacco dependence F17.200 [facility], [place] [id number] [place] [address] 06011- 2145 May, [facility], [place] [id number] [place] [address] 12029- 7894 May, [facility], [place] [id number] [place] [address] 52328- 2624 May, [facility], [place] [id number] [place] [address] 71352- 5066 May, [facility], [place] [id number] [place] [address] 87528- 1963 May, [facility], [place] [id number] [place] [address] 28700- 3731 May, [facility], [place] [id number] [place] [address] 48547- 5117 May, Bipolar 2 disorder F31.81 ; JAKE (generalized anxiety disorder) F41.1 and Tobacco dependence F17.200 [facility], [place] [id number] [place] [address] 57624- 8003 Jan, [facility], [place] [id number] [place] [address] 21880- 8764 Jan, [facility], [place] [id number] [place] [address] 78991- 0015 Dec, [facility], [place] [id number] [place] [address] 72853- 4987 Dec, [facility], [place] [id number] [place] [address] 56311- 7224 Nov, [facility], [place] [id number] [place] [address] 54892- 6367 Nov, Other chronic pain G89.29 and Pain in left shoulder M25.512 [facility], [place] [id number] [place] [address] 28728- 2078 Nov, Bipolar 2 disorder F31.81 and JAKE (generalized anxiety disorder) F41.1 [facility], [place] [id number] [place] [address] 77766- 7479 Oct, Pre-diabetes R73.03 and Left anterior shoulder pain M25.512 [facility], [place] [id number] [place] [address] 61070- 6510 Sep, [facility], [place] [id number] [place] [address] 45104- 6633 July, Lumbago with sciatica, right side M54.41 ; Left anterior shoulder pain M25.512 and Pain in right knee M25.561 [place] [facility] [id number] [place] [address] 16022- 4935 Jun, [place] [address] 01449- 1727 Jun, 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 ; Bipolar 2 disorder F31.81 and JAKE (generalized anxiety disorder) F41.1 [place] [address] 55756- 8001 May, Low back pain M54.5 ; Pain in right knee M25.561 ; Pain in left knee M25.562 and Pre-diabetes R73.03 [place] [address] 05249- 6261 May, [place] [facility] [id number] [place] [address] 55689- 3532 May, [place] [address] 45895- 7681 May, Drug-induced erectile dysfunction N52.2 [place] [id number] [place] [address] 95337- 2112 Mar, [place] [facility] [id number] [place] [address] 78182- 5857 Mar, [place] [id number] [place] [address] 63228- 5651 Mar, Encounter for routine adult health examination with abnormal findings Z00.01 ; Low back pain M54.5 ; Other chronic pain G89.29 ; Pain in right knee M25.561 ; Pain in left knee M25.562 ; Family history of diabetes mellitus Z83.3 and Drug-induced erectile dysfunction N52.2 [place] [id number] [place] [address] 80198- 3436 Mar, Bipolar 2 disorder F31.81 and JAKE (generalized anxiety disorder) F41.1 [place] [address] [place] [address] Mar, [facility], [place] [id number] [place] [address] 36188- 9097 Feb, [facility], [place] [id number] [place] [address] 576128- 0724 Feb, [facility], [place] [id number] [place] [address] 927367- 9355 Jan, [facility], [place] [id number] [place] [address] 25005- 1222 Dec, [facility], [place] [id number] [place] [address] 988696- 8529 Dec, [facility], [place] [id number] [place] [address] 55699- 5051 Dec, Bipolar 2 disorder F31.81 and JAKE (generalized anxiety disorder) F41.1 [facility], [place] [id number] [place] [address] 85693- 7041 Nov, [facility], [place] [id number] [place] [address] 35265- 3598 Oct, Bipolar 2 disorder F31.81 and JAKE (generalized anxiety disorder) F41.1 [facility], [place] [id number] [place] [address] 16775- 8603 Oct, Anxiety, generalized F41.1 [facility], [place] [id number] [place] [address] 46036- 2325 Oct, Generalized anxiety disorder F41.1 and Excessive excitability/irritability with unrest R45.89 [facility], [place] [id number] [place] [address] 82570- 8628 Oct, [facility], [place] [id number] [place] [address] 569731- 4783 Sep, [facility], [place] [id number] [place] [address] 61605- 9542 July, [facility], [place] [address] [place] [address] 08945- 0361 July, 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 and Excessive excitability/ irritability with unrest R45.89 [facility], [place] [id number] [place] [address] 82716- 1669 July, [facility], [place] [id number] [place] [address] 49800- 0515 July, Generalized anxiety disorder F41.1 [facility], [place] [id number] [place] [address] 48243- 8438 May, [facility], [place] [id number] [place] [address] 46107- 3051 May, [facility], [place] [id number] [place] [address] 80893- 1933 Mar, [facility], [place] [id number] [place] [address] 36624- 6848 Feb, [facility], [place] [id number] [place] [address] 57925- 3356 Jan, [facility], [place] [id number] [place] [address] 65318- 9109 Jan, Generalized anxiety disorder F41.1 and Encounter for observation for other suspected diseases and conditions ruled out Z03.89 [facility], [place] [id number] [place] [address] 96328- 1100 Jan, Generalized anxiety disorder F41.1 [facility], [place] [id number] [place] [address] 39272- 0627 Jan, [facility], [place] [id number] [place] [address] 20182- 1581 Dec, Generalized anxiety disorder F41.1 [facility], [place] [id number] [place] [address] 81316- 6003 Dec, Family history of pinworm infection Z83.1 [facility], [place] [address] [place], [place] [address]- [address] 28 Nov, 2014 Generalized anxiety disorder 300.02 ; No condition on Lapoint II V71.09 and Back problem 724.9 IMMUNIZATIONS [...] Hospitalization History Surgeries Hospitalization History Disc dislocation- [facility]
--- OUTSIDE RECORDS SUMMARY | 2018-06-19 07:49 | XMS REPORT ---
Author Author ALEYDA PECK Organization [facility] Address [address] [place] [address] Care Team Providers Care Policy Adviser Name Role Phone ALEYDA PECK Unavailable PROBLEMS Type Condition ICD9-CM Code VTX07-GO Code Onset Dates Condition Status SNOMED Code Problem Drug-induced erectile dysfunction N52.2 Active 365046654 Problem Pain in left knee M25.562 Active 72834988 Problem Family history of diabetes mellitus Z83.3 Active 609365085 Problem JAKE (generalized anxiety disorder) F41.1 Active 99252949 Problem Bipolar 2 disorder F31.81 Active 38779230 Problem Lumbago with sciatica, right side M54.41 Active 866731428 Problem Pre-diabetes R73.03 Active 535502122 Problem Low back pain M54.5 Active 392893854 Problem Pain in right knee M25.561 Active 56314500 Problem Other chronic pain G89.29 Active 46967431 Problem Encounter for routine adult health examination with abnormal findings Z00.01 Active 402337049 ALLERGIES Unknown Allergies SOCIAL HISTORY No smoking Hx information available PLAN OF CARE VITAL SIGNS MEDICATIONS Medication Instructions Dosage Frequency Start Date End Date Duration Status Xanax 1 MG Orally 4 times a day 1 tablet 6h Mar, Active Seroquel 200 MG Orally at bedtime for sleep 1 tablet Oct, Active RESULTS No Results PROCEDURES No Known procedures IMMUNIZATIONS No Known Immunizations
--- OUTSIDE RECORDS SUMMARY | 2018-06-19 07:50 | XMS REPORT ---
Author Author WASHINGTONEDMUNDONICOLLE Organization [facility] Address [address] [place] [address] Care Team Providers Care Guide Changer Name Role Phone DELAROSANICOLLE Dobbins Unavailable PROBLEMS Type Condition ICD9-CM Code RGV17-BU Code Onset Dates Condition Status SNOMED Code Problem JAKE (generalized anxiety disorder) F41.1 Active 05170261 Problem Bipolar 2 disorder F31.81 Active 90491528 Problem Primary osteoarthritis of both knees M17.0 Active 206520910 Problem Tobacco dependence F17.200 Active 27659452 Problem Other chronic pain G89.29 Active 48942179 Problem Drug-induced erectile dysfunction N52.2 Active 806317517 Problem Lumbago with sciatica, right side M54.41 Active 621806459 Problem Pre-diabetes R73.03 Active 721833324 ALLERGIES No Information ENCOUNTERS Encounter Location Date Diagnosis [facility] [id number] [place] [address] 14069- 0024 Jan, [facility] [id number] [place] [address] 83313- 6776 Sep, Primary osteoarthritis of both knees M17.0 ; Lumbago with sciatica, right side M54.41 ; Pre-diabetes R73.03 and Tobacco dependence F17.200 [facility] [id number] [place] [address] 07353- 4559 Aug, [facility] [id number] [place] [address] 10102- 6214 Aug, [facility] [id number] [place] [address] 28543- 2901 Aug, [facility] [id number] [place] [address] 94450- 2310 Aug, Primary osteoarthritis of both knees M17.0 ; Abnormal blood creatinine level R79.9 ; Lumbago with sciatica, right side M54.41 and Pre- diabetes R73.03 [facility] [id number] [place] [address] 62830- 2838 July, Bipolar 2 disorder F31.81 ; JAKE (generalized anxiety disorder) F41.1 and Tobacco dependence F17.200 [facility] [address] 56066- 8522 July, [facility] [id number] [place] [address] 37681- 8570 Jun, [facility] [address] 21549- 5451 Jun, [facility] [address] 56691- 1501 Jun, Abnormal blood creatinine level R79.9 [facility] [id number] [place] [address] 69507- 2141 Jun, Pre-diabetes R73.03 and Primary osteoarthritis of both knees M17.0 [facility] [id number] [place] [address] 75628- 9606 Jun, Pre-diabetes R73.03 ; Other chronic pain G89.29 ; Primary osteoarthritis of both knees M17.0 ; Drug-induced erectile dysfunction N52.2 and Tobacco dependence F17.200 [facility] [id number] [place] [address] 24619- 8853 May, [facility] [id number] [place] [address] 28135- 5792 May, [facility] [id number] [place] [address] 72813- 2258 May, [facility] [id number] [place] [address] 38523- 9722 May, [facility] [id number] [place] [address] 65367- 7900 May, [facility] [id number] [place] [address] 59312- 5652 May, [facility] [id number] [place] [address] 24031- 9890 May, Bipolar 2 disorder F31.81 ; JAKE (generalized anxiety disorder) F41.1 and Tobacco dependence F17.200 [facility] [id number] [place] [address] 80237- 9416 Jan, [facility] [id number] [place] [address] 68922- 9191 Jan, [facility] [id number] [place] [address] 70854- 2941 Dec, [facility] [id number] [place] [address] 51313- 1777 Dec, [facility] [id number] [place] [address] 74528- 1775 Nov, [facility] [id number] [place] [address] 78882- 5985 Nov, Other chronic pain G89.29 and Pain in left shoulder M25.512 [facility] [id number] [place] [address] 07004- 8163 Nov, Bipolar 2 disorder F31.81 and JAKE (generalized anxiety disorder) F41.1 [facility] [id number] [place] [address] 22837- 6166 Oct, Pre-diabetes R73.03 and Left anterior shoulder pain M25.512 [facility] [id number] [place] [address] 48281- 4722 Sep, [facility] [id number] [place] [address] 47525- 1781 July, Lumbago with sciatica, right side M54.41 ; Left anterior shoulder pain M25.512 and Pain in right knee M25.561 [facility] [id number] [place] [address] 83341- 7641 Jun, [facility] [address] 87469- 7770 Jun, long-term 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 ; Bipolar 2 disorder F31.81 and JAKE (generalized anxiety disorder) F41.1 [facility] [address] 95369- 2758 May, Low back pain M54.5 ; Pain in right knee M25.561 ; Pain in left knee M25.562 and Pre-diabetes R73.03 [facility] [address] 90398- 3621 May, [facility] [id number] [place] [address] 60706- 2430 May, [facility] [address] 35525- 3103 May, Drug-induced erectile dysfunction N52.2 [facility] [id number] [place] [address] 33714- 4835 Mar, [facility] [id number] [place] [address] 88468- 4647 Mar, [facility] [id number] [place] [address] 51401- 6112 Mar, Encounter for routine adult health examination with abnormal findings Z00.01 ; Low back pain M54.5 ; Other chronic pain G89.29 ; Pain in right knee M25.561 ; Pain in left knee M25.562 ; Family history of diabetes mellitus Z83.3 and Drug-induced erectile dysfunction N52.2 [facility] [id number] [place] [address] 39430- 6281 Mar, Bipolar 2 disorder F31.81 and JAKE (generalized anxiety disorder) F41.1 [facility] [address] [place] [address] 0691 Mar, [facility] [address] [place] [address] 60154- 4902 Feb, [facility] [id number] [place] [address] 150702- 6541 Feb, [facility] [id number] [place] [address] 107438- 6574 Jan, [facility] [id number] [place] [address] 01013- 9975 Dec, [facility] [id number] [place] [address] 662197- 1206 Dec, [facility] [id number] [place] [address] 79866- 6663 Dec, Bipolar 2 disorder F31.81 and JAKE (generalized anxiety disorder) F41.1 [facility] [id number] [place] [address] 76802- 6939 Nov, [facility] [id number] [place] [address] 47334- 3265 Oct, Bipolar 2 disorder F31.81 and JAKE (generalized anxiety disorder) F41.1 [facility] [id number] [place] [address] 49636- 5445 Oct, Anxiety, generalized F41.1 [facility] [id number] [place] [address] 03438- 4049 Oct, Generalized anxiety disorder F41.1 and Excessive excitability/irritability with unrest R45.89 [facility] [id number] [place] [address] 00233- 9450 Oct, [facility] [id number] [place] [address] 030700- 2145 Sep, [facility] [address] [place] [address] 87727- 7050 July, [facility] [address] [place] [address] 45499- 9417 July, 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 and Excessive excitability/ irritability with unrest R45.89 [facility] [id number] [place] [address] 81772- 2706 July, [facility] [id number] [place] [address] 11282- 5125 July, Generalized anxiety disorder F41.1 [facility] [id number] [place] [address] 90391- 7377 May, [facility] [id number] [place] [address] 34959- 8967 May, [facility] [id number] [place] [address] 94086- 0466 Mar, [facility] [id number] [place] [address] 32284- 7304 Feb, [facility] [id number] [place] [address] 74085- 9555 Jan, [facility] [id number] [place] [address] 39326- 7568 Jan, Generalized anxiety disorder F41.1 and Encounter for observation for other suspected diseases and conditions ruled out Z03.89 [facility] [id number] [place] [address] 64342- 9466 Jan, Generalized anxiety disorder F41.1 [facility] [id number] [place] [address] 88864- 3043 Jan, [facility] [id number] [place] [address] 11708- 1807 Dec, Generalized anxiety disorder F41.1 [facility] [id number] [place] [address] 81265- 3801 Dec, Family history of pinworm infection Z83.1 [facility] [address] [place] [address] 28 Nov, 2014 Generalized anxiety disorder 300.02 ; No condition on [place] II V71.09 and Back problem 724.9 IMMUNIZATIONS No Known Immunizations SOCIAL HISTORY Never Assessed REASON FOR VISIT Medication PLAN OF CARE VITAL SIGNS MEDICATIONS Medication Instructions Dosage Frequency Start Date End Date Duration Status Metformin HCl 500 mg Orally 2 times a day TAKE ONE TABLET ONCE DAILY WITH EVENING MEAL FOR 7 DAYS THEN INCREASE TO ONE TABLET TWICE DAILY WITH EVENING MEAL 12h 90 days Active RESULTS No Results PROCEDURES No [...] Hospitalization History Surgeries Hospitalization History Disc dislocation- [facility]
--- OUTSIDE RECORDS SUMMARY | 2018-06-19 07:50 | XMS REPORT ---
Author Author NICOLLE DELAROSA Organization [facility] Address [address] [place] [address] Care Team Providers Care Access Service Representative Name Role Phone DELAROSA NICOLLE Unavailable PROBLEMS Type Condition ICD9-CM Code LQM30-CB Code Onset Dates Condition Status SNOMED Code Problem Drug-induced erectile dysfunction N52.2 Active 409100481 Problem Pain in left knee M25.562 Active 53540601 Problem Family history of diabetes mellitus Z83.3 Active 875638061 Problem JAKE (generalized anxiety disorder) F41.1 Active 44703168 Problem Bipolar 2 disorder F31.81 Active 86631189 Problem Lumbago with sciatica, right side M54.41 Active 693432442 Problem Pre-diabetes R73.03 Active 877070549 Problem Low back pain M54.5 Active 196066228 Problem Pain in right knee M25.561 Active 31221835 Problem Other chronic pain G89.29 Active 54377114 Problem Encounter for routine adult health examination with abnormal findings Z00.01 Active 180597545 ALLERGIES Substance Reaction Event Type Date Status N.K.D.A. Unknown Non Drug Allergy Mar, Unknown SOCIAL HISTORY No smoking Hx information available PLAN OF CARE VITAL SIGNS MEDICATIONS Medication Instructions Dosage Frequency Start Date End Date Duration Status Xanax 1 MG Orally 4 times a day 1 tablet 6h Mar, Active Seroquel 200 MG Orally at bedtime for sleep 1 tablet Oct, Active Lamictal 150 MG Orally Once a day 1 tablet 24h Oct, Active RESULTS No Results PROCEDURES No Known procedures IMMUNIZATIONS No Known Immunizations
--- OUTSIDE RECORDS SUMMARY | 2018-06-19 07:50 | XMS REPORT ---
Author Author STEVAN MARTÍNEZ [facility] eClinical[employer] Address Unknown Phone Unavailable Care Team Providers Care Chemistry Technician Name Role Phone STEVAN MARTÍNEZ CP Unavailable Allergies, Adverse Reactions, Alerts Substance Reaction Event Type N.K.D.A. Info Not Available Non Drug Allergy Problems Problem Type Condition Code Onset Dates Condition Status Assessment Generalized anxiety disorder F41.1 Active Medications Medication Code System Code Instructions Start Date End Date Status Dosage Valium [facility] [address]-06 5 MG Orally 2 times a day as needed Jan 19, 2015 1 tab Procedures Procedure Coding System Code Date Psych diagnostic evaluation w/medical services, established patient CPT-4 81739 Jan 19, 2015 Vital Signs Date/Time: Jan 19, 2015 Temperature 97.8 F Weight 210 lbs Height 72 in BMI 28.48 Index Blood Pressure Diastolic 70 mmHg Blood Pressure Systolic 120 mmHg Cardiac Monitoring Heart Rate 102 bpm Results No Known Results Summary Purpose eClinicalWorks Submission
--- OUTSIDE RECORDS SUMMARY | 2018-06-19 07:50 | XMS REPORT ---
Author Author CISCO ALEYDA [facility] Address [address] [place] [address] Care Team Providers Care Equipment Service Engineer Name Role Phone CISCO ALEYDA Unavailable PROBLEMS Type Condition ICD9-CM Code HGI29-DA Code Onset Dates Condition Status SNOMED Code Problem JAKE (generalized anxiety disorder) F41.1 Active 40548489 Problem Bipolar 2 disorder F31.81 Active 55751861 Problem Primary osteoarthritis of both knees M17.0 Active 703187358 Problem Tobacco dependence F17.200 Active 35740384 Problem Other chronic pain G89.29 Active 94009984 Problem Drug-induced erectile dysfunction N52.2 Active 416876874 Problem Lumbago with sciatica, right side M54.41 Active 292994272 Problem Pre-diabetes R73.03 Active 430867533 ALLERGIES No Information ENCOUNTERS Encounter Location Date Diagnosis [facility] [address] [place] [address] 84902- 5666 Jan, [facility] [id number] [place] [address] 45561- 4963 Sep, Primary osteoarthritis of both knees M17.0 ; Lumbago with sciatica, right side M54.41 ; Pre-diabetes R73.03 and Tobacco dependence F17.200 [facility] [address] [place] [address] 58338- 4786 Aug, [facility] [id number] [place] [address] 80477- 7512 Aug, [facility] [id number] [place] [address] 78793- 9016 Aug, [facility] [address] [place] [address] 76259- 1087 Aug, Primary osteoarthritis of both knees M17.0 ; Abnormal blood creatinine level R79.9 ; Lumbago with sciatica, right side M54.41 and Pre- diabetes R73.03 [facility] [id number] [place] [address] 11585- 8992 July, Bipolar 2 disorder F31.81 ; JAKE (generalized anxiety disorder) F41.1 and Tobacco dependence F17.200 [facility] [address] 74472- 5736 July, [facility] [id number] [place] [address] 29500- 3686 Jun, [facility] [address] 58435- 2411 Jun, [facility] [address] 78806- 7110 Jun, Abnormal blood creatinine level R79.9 [facility] [id number] [place] [address] 25975- 1737 Jun, Pre-diabetes R73.03 and Primary osteoarthritis of both knees M17.0 [facility] [id number] [place] [address] 05205- 7815 Jun, Pre-diabetes R73.03 ; Other chronic pain G89.29 ; Primary osteoarthritis of both knees M17.0 ; Drug-induced erectile dysfunction N52.2 and Tobacco dependence F17.200 [facility] [id number] [place] [address] 67847- 4574 May, [facility] [id number] [place] [address] 51195- 3033 May, [facility] [id number] [place] [address] 65854- 3755 May, [facility] [id number] [place] [address] 09845- 2423 May, [facility] [id number] [place] [address] 40914- 0483 May, [facility] [id number] [place] [address] 66140- 0625 May, [facility] [id number] [place] [address] 58550- 7419 May, Bipolar 2 disorder F31.81 ; JAKE (generalized anxiety disorder) F41.1 and Tobacco dependence F17.200 [facility] [id number] [place] [address] 71083- 1596 Jan, [facility] [id number] [place] [address] 15521- 1695 Jan, [facility] [id number] [place] [address] 85951- 6054 Dec, [facility] [id number] [place] [address] 01205- 4239 Dec, [facility] [id number] [place] [address] 66220- 5412 Nov, [facility] [id number] [place] [address] 86123- 9538 Nov, Other chronic pain G89.29 and Pain in left shoulder M25.512 [facility] [id number] [place] [address] 86538- 5106 Nov, Bipolar 2 disorder F31.81 and JAKE (generalized anxiety disorder) F41.1 [facility] [id number] [place] [address] 69132- 1225 Oct, Pre-diabetes R73.03 and Left anterior shoulder pain M25.512 [facility] [id number] [place] [address] 62183- 8300 Sep, [facility] [id number] [place] [address] 17685- 1889 July, Lumbago with sciatica, right side M54.41 ; Left anterior shoulder pain M25.512 and Pain in right knee M25.561 [facility] [id number] [place] [address] 68800- 3630 Jun, [facility] [address] 40339- 0125 Jun, sizing machine tender 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 ; Bipolar 2 disorder F31.81 and JAKE (generalized anxiety disorder) F41.1 [facility] [address] 86864- 7386 May, Low back pain M54.5 ; Pain in right knee M25.561 ; Pain in left knee M25.562 and Pre-diabetes R73.03 [facility] [address] 94665- 1604 May, [facility] [id number] [place] [address] 33595- 1105 May, [facility] [address] 22518- 0580 May, Drug-induced erectile dysfunction N52.2 [facility] [id number] [place] [address] 09573- 3185 Mar, [facility] [id number] [place] [address] 92894- 9464 Mar, [facility] [id number] [place] [address] 29198- 8309 Mar, Encounter for routine adult health examination with abnormal findings Z00.01 ; Low back pain M54.5 ; Other chronic pain G89.29 ; Pain in right knee M25.561 ; Pain in left knee M25.562 ; Family history of diabetes mellitus Z83.3 and Drug-induced erectile dysfunction N52.2 [facility] [id number] [place] [address] 97931- 8539 Mar, Bipolar 2 disorder F31.81 and JAKE (generalized anxiety disorder) F41.1 [facility] [address] [place] [address]- 0790 Mar, [facility] [address] [place] [address] 16733- 3504 Feb, [facility] [id number] [place] [address] 289575- 7911 Feb, [facility] [id number] [place] [address] 571753- 7683 Jan, [facility] [id number] [place] [address] 10054- 4865 Dec, [facility] [id number] [place] [address] 112060- 8236 Dec, [facility] [id number] [place] [address] 95609- 0982 Dec, Bipolar 2 disorder F31.81 and JAKE (generalized anxiety disorder) F41.1 [facility] [id number] [place] [address] 12499- 4667 Nov, [facility] [id number] [place] [address] 34702- 9901 Oct, Bipolar 2 disorder F31.81 and JAKE (generalized anxiety disorder) F41.1 [facility] [id number] [place] [address] 99383- 2065 Oct, Anxiety, generalized F41.1 [facility] [id number] [place] [address] 22421- 3685 Oct, Generalized anxiety disorder F41.1 and Excessive excitability/irritability with unrest R45.89 [facility] [id number] [place] [address] 55376- 7007 Oct, [facility] [id number] [place] [address] 090192- 9147 Sep, [facility] [address] [place] [address] 07193- 5290 July, [facility] [address] [place] [address] 51042- 5293 July, sizing machine tender 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 and Excessive excitability/ irritability with unrest R45.89 [facility] [id number] [place] [address] 41677- 3460 July, [facility] [id number] [place] [address] 42228- 4924 July, Generalized anxiety disorder F41.1 [facility] [id number] [place] [address] 45864- 7495 May, [facility] [id number] [place] [address] 28943- 7120 May, [facility] [id number] [place] [address] 63586- 6222 Mar, [facility] [id number] [place] [address] 29989- 1045 Feb, [facility] [id number] [place] [address] 84335- 8890 Jan, [facility] [id number] [place] [address] 23741- 0966 Jan, Generalized anxiety disorder F41.1 and Encounter for observation for other suspected diseases and conditions ruled out Z03.89 [facility] [id number] [place] [address] 53204- 1462 Jan, Generalized anxiety disorder F41.1 [facility] [id number] [place] [address] 97465- 8347 Jan, [facility] [id number] [place] [address] 47344- 4721 Dec, Generalized anxiety disorder F41.1 [facility] [address] [place] [address] 77715- 8087 Dec, Family history of pinworm infection Z83.1 [facility] [address] [address] 28 Nov, 2014 Generalized anxiety disorder 300.02 ; No condition on [place] II V71.09 and Back problem 724.9 IMMUNIZATIONS No Known Immunizations SOCIAL HISTORY Never Assessed REASON FOR VISIT med refill PLAN OF CARE VITAL SIGNS MEDICATIONS Medication Instructions Dosage Frequency Start Date End Date Duration Status Xanax XR 3 MG Orally Once a day for anxiety 1 tablet Mar, 30 days Active Seroquel 100 mg Orally at bedtime 1 tablet Oct, 30 days Active RESULTS No Results PROCEDURES [...] Hospitalization History Surgeries Hospitalization History Disc dislocation- [facility]
--- OUTSIDE RECORDS SUMMARY | 2018-06-19 07:50 | XMS REPORT ---
Author Author DELAROSAEDMUNDONICOLLE Organization [facility] Address [address] [place] [address] Care Team Providers Care Hatchery Worker Name Role Phone DELAROSANICOLLE Dobbins Unavailable PROBLEMS Type Condition ICD9-CM Code TKT28-IG Code Onset Dates Condition Status SNOMED Code Problem JAKE (generalized anxiety disorder) F41.1 Active 32337118 Problem Bipolar 2 disorder F31.81 Active 00556082 Problem Primary osteoarthritis of both knees M17.0 Active 559126287 Problem Tobacco dependence F17.200 Active 28686225 Problem Other chronic pain G89.29 Active 25219626 Problem Drug-induced erectile dysfunction N52.2 Active 955296380 Problem Lumbago with sciatica, right side M54.41 Active 745282176 Problem Pre-diabetes R73.03 Active 137617101 ALLERGIES No Information ENCOUNTERS Encounter Location Date Diagnosis [facility] [id number] [place] [address] 87949- 4983 Jan, [facility] [id number] [place] [address] 95559- 9613 Sep, Primary osteoarthritis of both knees M17.0 ; Lumbago with sciatica, right side M54.41 ; Pre-diabetes R73.03 and Tobacco dependence F17.200 [facility] [address] [place] [address] 44852- 5855 Aug, [facility] [id number] [place] [address] 54142- 4584 Aug, [facility] [id number] [place] [address] 16948- 4496 Aug, [facility] [address] [place] [address] 24451- 9488 Aug, Primary osteoarthritis of both knees M17.0 ; Abnormal blood creatinine level R79.9 ; Lumbago with sciatica, right side M54.41 and Pre- diabetes R73.03 [facility] [id number] [place] [address] 20717- 2501 July, Bipolar 2 disorder F31.81 ; JAKE (generalized anxiety disorder) F41.1 and Tobacco dependence F17.200 [facility] [address] 31570- 2929 July, [facility] [id number] [place] [address] 20362- 3119 Jun, [facility] [address] 39685- 8994 Jun, [facility] [address] 83692- 9104 Jun, Abnormal blood creatinine level R79.9 [facility] [id number] [place] [address] 56018- 9643 Jun, Pre-diabetes R73.03 and Primary osteoarthritis of both knees M17.0 [facility] [id number] [place] [address] 42737- 5139 Jun, Pre-diabetes R73.03 ; Other chronic pain G89.29 ; Primary osteoarthritis of both knees M17.0 ; Drug-induced erectile dysfunction N52.2 and Tobacco dependence F17.200 [facility] [id number] [place] [address] 33193- 3904 May, [facility] [id number] [place] [address] 57523- 7957 May, [facility] [id number] [place] [address] 16839- 1372 May, [facility] [id number] [place] [address] 33358- 4171 May, [facility] [id number] [place] [address] 52476- 4361 May, [facility] [id number] [place] [address] 21103- 9796 May, [facility] [id number] [place] [address] 01320- 0023 May, Bipolar 2 disorder F31.81 ; JAKE (generalized anxiety disorder) F41.1 and Tobacco dependence F17.200 [facility] [id number] [place] [address] 91840- 2110 Jan, [facility] [id number] [place] [address] 84713- 9008 Jan, [facility] [id number] [place] [address] 94629- 5203 Dec, [facility] [id number] [place] [address] 51949- 0249 Dec, [facility] [id number] [place] [address] 75983- 5544 Nov, [facility] [id number] [place] [address] 45479- 5312 Nov, Other chronic pain G89.29 and Pain in left shoulder M25.512 [facility] [id number] [place] [address] 28329- 2886 Nov, Bipolar 2 disorder F31.81 and JAKE (generalized anxiety disorder) F41.1 [facility] [id number] [place] [address] 40565- 9731 Oct, Pre-diabetes R73.03 and Left anterior shoulder pain M25.512 [facility] [id number] [place] [address] 23025- 4221 Sep, [facility] [id number] [place] [address] 24556- 5632 July, Lumbago with sciatica, right side M54.41 ; Left anterior shoulder pain M25.512 and Pain in right knee M25.561 [facility] [id number] [place] [address] 14221- 9853 Jun, [facility] [address] 76603- 5572 Jun, longterm 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 ; Bipolar 2 disorder F31.81 and JAKE (generalized anxiety disorder) F41.1 [facility] [address] 37182- 8283 May, Low back pain M54.5 ; Pain in right knee M25.561 ; Pain in left knee M25.562 and Pre-diabetes R73.03 [facility] [address] 17251- 9251 May, [facility] [id number] [place] [address] 40506- 5349 May, [facility] [address] 60644- 3164 May, Drug-induced erectile dysfunction N52.2 [facility] [id number] [place] [address] 92242- 3442 Mar, [facility] [id number] [place] [address] 72352- 7434 Mar, [facility] [id number] [place] [address] 68192- 0210 Mar, Encounter for routine adult health examination with abnormal findings Z00.01 ; Low back pain M54.5 ; Other chronic pain G89.29 ; Pain in right knee M25.561 ; Pain in left knee M25.562 ; Family history of diabetes mellitus Z83.3 and Drug-induced erectile dysfunction N52.2 [facility] [id number] [place] [address] 43267- 2656 Mar, Bipolar 2 disorder F31.81 and JAKE (generalized anxiety disorder) F41.1 [facility] [facility] [address] [place] [address] Mar, [facility] [address] [place] [address] 60918- 4130 Feb, [facility] [id number] [place] [address] 257908- 2709 Feb, [facility] [id number] [place] [address] 997711- 0113 Jan, [facility] [id number] [place] [address] 07407- 6330 Dec, [facility] [id number] [place] [address] 695147- 8659 Dec, [facility] [id number] [place] [address] 37086- 7569 Dec, Bipolar 2 disorder F31.81 and JAKE (generalized anxiety disorder) F41.1 [facility] [id number] [place] [address] 42485- 6793 Nov, [facility] [id number] [place] [address] 91216- 0320 Oct, Bipolar 2 disorder F31.81 and JAEK (generalized anxiety disorder) F41.1 [facility] [id number] [place] [address] 63745- 2112 Oct, Anxiety, generalized F41.1 [facility] [id number] [place] [address] 43089- 3913 Oct, Generalized anxiety disorder F41.1 and Excessive excitability/irritability with unrest R45.89 [facility] [id number] [place] [address] 13217- 4334 Oct, [facility] [id number] [place] [address] 038834- 0428 Sep, [facility] [address] [place] [address] 52440- 6948 July, [facility] [address] [place] [address] 92965- 8099 July, long term care pharmacist 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 and Excessive excitability/ irritability with unrest R45.89 [facility] [id number] [place] [address] 89087- 6761 July, [facility] [id number] [place] [address] 81443- 0909 July, Generalized anxiety disorder F41.1 [facility] [id number] [place] [address] 00870- 7183 May, [facility] [id number] [place] [address] 51725- 9433 May, [facility] [id number] [place] [address] 08325- 9767 Mar, [facility] [id number] [place] [address] 00288- 3547 Feb, [facility] [id number] [place] [address] 59104- 1508 Jan, [facility] [id number] [place] [address] 72108- 2916 Jan, Generalized anxiety disorder F41.1 and Encounter for observation for other suspected diseases and conditions ruled out Z03.89 [facility] [id number] [place] [address] 68030- 7577 Jan, Generalized anxiety disorder F41.1 [facility] [id number] [place] [address] 49458- 9913 Jan, [facility] [id number] [place] [address] 23778- 5189 Dec, Generalized anxiety disorder F41.1 [facility] [address] [place] [address] 64236- 9263 Dec, Family history of pinworm infection Z83.1 [facility] [address] [place] [address] 28 Nov, 2014 Generalized anxiety disorder 300.02 ; No condition on Mant[employer] II V71.09 and Back problem 724.9 IMMUNIZATIONS No Known Immunizations SOCIAL HISTORY Never Assessed REASON FOR VISIT Refill request PLAN OF CARE VITAL SIGNS MEDICATIONS Medication Instructions Dosage Frequency Start Date End Date Duration Status Metformin HCl 500 mg 1 tablet with meals 12h 30 days Active RESULTS No Results PROCEDURES [...] Hospitalization History Surgeries Hospitalization History Disc dislocation- [facility]
--- OUTSIDE RECORDS SUMMARY | 2018-06-19 07:50 | XMS REPORT ---
Author Author NICOLLE DELAROSA Organization [facility] Address [address] [place] [address] Care Team Providers Care Van Cdl Driver Name Role Phone W[place] NICOLLE Unavailable PROBLEMS Type Condition ICD9-CM Code [id number] Code Onset Dates Condition Status SNOMED Code Problem Family history of diabetes mellitus Z83.3 Active 507558590 Problem Low back pain M54.5 Active 192932614 Problem Drug-induced erectile dysfunction N52.2 Active 207651433 Problem Bipolar 2 disorder F31.81 Active 44850295 Problem JAKE (generalized anxiety disorder) F41.1 Active 25839327 Problem Lumbago with sciatica, right side M54.41 Active 117844607 Problem Pre-diabetes R73.03 Active 427959695 Problem Pain in right knee M25.561 Active 92797363 Problem Pain in left knee M25.562 Active 79527914 Problem Encounter for routine adult health examination with abnormal findings Z00.01 Active 192484665 Problem Other chronic pain G89.29 Active 02086580 ALLERGIES Substance Reaction Event Type Date Status N.K.D.A. Unknown Non Drug Allergy Mar, Unknown SOCIAL HISTORY No smoking Hx information available PLAN OF CARE Activity Details Follow Up 3 Months Reason:[facility] VITAL SIGNS Height 72 in 2016-04-05 Weight 222.1 lbs 2016-04-05 Temperature 98.2 degrees Fahrenheit 2016-04-05 Heart Rate 110 bpm 2016-04-05 Respiratory Rate 20 2016-04-05 BMI 30.12 kg/m2 2016-04-05 Blood pressure systolic 130 mmHg 2016-04-05 Blood pressure diastolic 82 mmHg 2016-04-05 MEDICATIONS Medication Instructions Dosage Frequency Start Date End Date Duration Status Celecoxib 200 MG Orally Once a day 1 capsule 24h Mar, 30 day(s ) Active Viagra 25 MG Orally Once a day 1 tablet daily as needed before sexual activitiy 24h Mar, May, 30 day(s) Active Xanax 1 MG Orally take at bedtime 1 tablet Mar, Active Seroquel 100 MG Orally at bedtime 1 tablet Oct, Active Xanax XR 3 MG Orally Once a day for anxiety 1 tablet Mar, Active Lamictal 200 MG Orally Once a day 1 tablet 24h Oct, Active RESULTS Name Result Date Reference Range THYROID ANALYZER 2016-04-05 TSH 0.775 0.450-4.500 A1C 2016-04-05 Hemoglobin A1c 5.8 4.8-5.6 CBC 2016-04-05 WBC 9.0 3.4-10.8 RBC 5.57 4.14-5.80 Hemoglobin 16.4 12.6-17.7 Hematocrit 47.6 37.5-51.0 MCV 86 79-97 MCH 29.4 26.6-33.0 MCHC 34.5 31.5-35.7 RDW 13.6 12.3-15.4 Platelets 222 150-379 Neutrophils 69 Lymphs 20 Monocytes 8 Eos 2 Basos 0 Neutrophils (Absolute) 6.2 1.4-7.0 Lymphs (Absolute) 1.8 0.7-3.1 Monocytes(Absolute) 0.7 0.1-0.9 Eos (Absolute) 0.2 0.0-0.4 Baso (Absolute) 0.0 0.0-0.2 Immature Granulocytes 1 Immature Grans (Abs) 0.1 0.0-0.1 LIPID PANEL 2016-04-05 Cholesterol, Total 185 100-199 Triglycerides 142 0-149 HDL Cholesterol 44 >39 VLDL Cholesterol Tad 28 5-40 LDL Cholesterol Calc 113 0-99 CMP 2016-04-05 Glucose, Serum 112 65-99 BUN 14 6-24 Creatinine, Serum 1.23 0.76-1.27 eGFR If NonAfricn Am 64 >59 eGFR If Africn Am 74 >59 BUN/Creatinine Ratio 11 9-20 Sodium, Serum 143 134-144 Potassium, Serum 4.6 3.5-5.2 Chloride, Serum 101 96-106 Carbon Dioxide, Total 25 18-29 Calcium, Serum 10.0 8.7-10.2 Protein, Total, Serum 7.4 6.0-8.5 Albumin, Serum 4.7 3.5-5.5 Globulin, Total 2.7 1.5-4.5 A/G Ratio 1.7 1.1-2.5 Bilirubin, Total 0.2 0.0-1.2 Alkaline Phosphatase, S 111 39-117 AST (SGOT) 23 0-40 ALT (SGPT) 29 0-44 PROCEDURES Procedure Date Ordered Related Diagnosis Body Site GLYCATED HEMOGLOBIN TEST Apr 05, 2016 LAB NOT BILLED BY [facility] Apr 05, 2016 VENIPUNCT, ROUTINE* Apr 05, 2016 Office Visit, Est Pt., Level 4 Apr 05, 2016 IMMUNIZATIONS No Known Immunizations
--- OUTSIDE RECORDS SUMMARY | 2018-06-19 07:50 | XMS REPORT ---
Author Author ALEYDA PECK Organization [facility] Address [address] [place] [address] Care Team Providers Care Event Lighting Specialist Name Role Phone ALEYDA PECK Unavailable PROBLEMS Type Condition ICD9-CM Code XRU14-YZ Code Onset Dates Condition Status SNOMED Code Problem Drug-induced erectile dysfunction N52.2 Active 812007135 Problem Pain in left knee M25.562 Active 23000912 Problem Family history of diabetes mellitus Z83.3 Active 471889787 Problem JAKE (generalized anxiety disorder) F41.1 Active 26938888 Problem Bipolar 2 disorder F31.81 Active 60671514 Problem Lumbago with sciatica, right side M54.41 Active 743282228 Problem Pre-diabetes R73.03 Active 063622256 Problem Low back pain M54.5 Active 552475308 Problem Pain in right knee M25.561 Active 49425066 Problem Other chronic pain G89.29 Active 20369791 Problem Encounter for routine adult health examination with abnormal findings Z00.01 Active 261269464 ALLERGIES Unknown Allergies SOCIAL HISTORY No smoking Hx information available PLAN OF CARE VITAL SIGNS MEDICATIONS Medication Instructions Dosage Frequency Start Date End Date Duration Status Xanax 1 MG Orally Three times a day as needed for anxiety 1 tablet Mar, Active RESULTS No Results PROCEDURES No Known procedures IMMUNIZATIONS No Known Immunizations
--- OUTSIDE RECORDS SUMMARY | 2018-06-19 07:50 | XMS REPORT ---
Author Author ALEYDA PECK Organization [facility] Address [address] [place] [address] Care Team Providers Care Pumper Gauger Apprentice Name Role Phone ALEYDA PECK Unavailable PROBLEMS Type Condition ICD9-CM Code [id number] Code Onset Dates Condition Status SNOMED Code Problem Family history of diabetes mellitus Z83.3 Active 022696726 Problem Low back pain M54.5 Active 843052629 Problem Drug-induced erectile dysfunction N52.2 Active 577441400 Problem Bipolar 2 disorder F31.81 Active 38830773 Problem JAKE (generalized anxiety disorder) F41.1 Active 74122009 Problem Lumbago with sciatica, right side M54.41 Active 922742174 Problem Pre-diabetes R73.03 Active 599394409 Problem Pain in right knee M25.561 Active 31275810 Problem Pain in left knee M25.562 Active 54684977 Problem Encounter for routine adult health examination with abnormal findings Z00.01 Active 274723748 Problem Other chronic pain G89.29 Active 39745295 ALLERGIES Substance Reaction Event Type Date Status N.K.D.A. Unknown Non Drug Allergy Mar, Unknown SOCIAL HISTORY No smoking Hx information available PLAN OF CARE Activity Details Follow Up 3 Months Reason: VITAL SIGNS Height 72 in 2016-04-04 Weight 224.0 lbs 2016-04-04 Heart Rate 120 bpm 2016-04-04 Respiratory Rate 20 2016-04-04 BMI 30.38 kg/m2 2016-04-04 Blood pressure systolic 123 mmHg 2016-04-04 Blood pressure diastolic 75 mmHg 2016-04-04 MEDICATIONS Medication Instructions Dosage Frequency Start Date End Date Duration Status Lamictal 200 MG Orally Once a day 1 tablet 24h Oct, Active Xanax 1 MG Orally take at bedtime 1 tablet Mar, Active Seroquel 100 MG Orally at bedtime 1 tablet Oct, Active Xanax XR 3 MG Orally Once a day for anxiety 1 tablet Mar, Active RESULTS No Results PROCEDURES Procedure Date Ordered Related Diagnosis Body Site MH Office Visit, Est Pt., Level 4 Apr 04, 2016 Psychotherapy, patient &/family, with E&M, 30 minutes, established patient Apr 04, 2016 IMMUNIZATIONS No Known Immunizations
--- OUTSIDE RECORDS SUMMARY | 2018-06-19 07:51 | XMS REPORT ---
Author Author ALEYDA PECK Organization [facility] Address [address] [place] [address] Care Team Providers Care Nuclear Physics Teacher Name Role Phone ALEYDA PECK Unavailable PROBLEMS Type Condition ICD9-CM Code PDJ75-SL Code Onset Dates Condition Status SNOMED Code Problem Family history of diabetes mellitus Z83.3 Active 313490235 Problem Low back pain M54.5 Active 966478949 Problem Drug-induced erectile dysfunction N52.2 Active 200573309 Problem Bipolar 2 disorder F31.81 Active 28952989 Problem JAKE (generalized anxiety disorder) F41.1 Active 09101526 Problem Lumbago with sciatica, right side M54.41 Active 523339484 Problem Pre-diabetes R73.03 Active 181285339 Problem Pain in right knee M25.561 Active 76225581 Problem Pain in left knee M25.562 Active 04136799 Problem Encounter for routine adult health examination with abnormal findings Z00.01 Active 667264283 Problem Other chronic pain G89.29 Active 93512085 ALLERGIES No Information SOCIAL HISTORY Never Assessed PLAN OF CARE VITAL SIGNS MEDICATIONS Medication Instructions Dosage Frequency Start Date End Date Duration Status Xanax XR 3 MG Orally Once a day for anxiety 1 tablet Mar, 30 days Active RESULTS No Results PROCEDURES No Known procedures IMMUNIZATIONS No Known Immunizations MEDICAL (GENERAL) HISTORY Type Description Date Medical History Anxiety Medical History depression Medical History Bilateral knee pain-needing repair Medical History 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
--- OUTSIDE RECORDS SUMMARY | 2018-06-19 07:51 | XMS REPORT ---
Author Author ALEYDA PECK [employer] Address Unknown Phone Unavailable Care Team Providers Care Resource Room Special Education Teacher Name Role Phone ALEYDA PECK CP Unavailable Allergies No Known Allergies Problems Problem Type Condition Code Onset Dates Condition Status Problem JAKE (generalized anxiety disorder) F41.1 Active Problem Bipolar 2 disorder F31.81 Active Medications Medication Code System Code Instructions Start Date End Date Status Dosage Seroquel [facility] [address]-72 100 MG Orally at bedtime for sleep Nov 07, 2015 1 tablet Lamictal [facility] [address]-62 150 MG Orally Once a day Nov 21, 2015 1 tablet Results No Known Results Summary Purpose [employer] Submission
--- OUTSIDE RECORDS SUMMARY | 2018-06-19 07:51 | XMS REPORT ---
Author Author ALEYDA PECK [employer] Address Unknown Phone Unavailable Care Team Providers Care Residential Plumber Name Role Phone ALEYDA PECK CP Unavailable Allergies, Adverse Reactions, Alerts Substance Reaction Event Type N.K.D.A. Info Not Available Non Drug Allergy Problems Problem Type Condition Code Onset Dates Condition Status Problem JAKE (generalized anxiety disorder) F41.1 Active Assessment Bipolar 2 disorder F31.81 Active Problem Bipolar 2 disorder F31.81 Active Assessment JAKE (generalized anxiety disorder) F41.1 Active Medications Medication Code System Code Instructions Start Date End Date Status Dosage Lamictal [facility] [address]-72 25 MG Orally take 1 pill each AM for 2 weeks and then take 2 tablets each morning and continue Nov 21, 2015 1 tablet Xanax [facility] [address]-04 1 MG Orally Three times a day as needed for anxiety Apr 18, 2015 1 tablet Seroquel [facility] [address]-69 50 mg Orally at bedtime for sleep Nov 07, 2015 1.5 to 2 tablet Procedures Procedure Coding System Code Date Office Visit, Est Pt., Level 5 CPT-4 24461 Nov 21, 2015 Vital Signs Date/Time: Nov 21, 2015 Cardiac Monitoring Heart Rate 94 bpm Weight 218.4 lbs Height 72 in BMI 29.62 Index Blood Pressure Diastolic 80 mmHg Blood Pressure Systolic 138 mmHg Results No Known Results Summary Purpose [employer] Submission
--- OUTSIDE RECORDS SUMMARY | 2018-06-19 07:51 | XMS REPORT ---
Author Author ALEYDA PECK [employer] Address Unknown Phone Unavailable Care Team Providers Care Boathouse Keeper Name Role Phone ALEYDA PECK CP Unavailable Allergies No Known Allergies Problems Problem Type Condition Code Onset Dates Condition Status Problem JAKE (generalized anxiety disorder) F41.1 Active Problem Bipolar 2 disorder F31.81 Active Medications Medication Code System Code Instructions Start Date End Date Status Dosage Xanax [facility] [address]-92 1 MG Orally Three times a day as needed for anxiety Apr 18, 2015 1 tablet Results No Known Results Summary Purpose eClinicalWorks Submission
--- OUTSIDE RECORDS SUMMARY | 2018-06-19 07:51 | XMS REPORT ---
Author Author NICOLLE DELAROSA Organization [facility] Address [address] [place] [address] Care Team Providers Care Weaving Instructor Name Role Phone DELAROSANICOLLE Dobbins Unavailable PROBLEMS Type Condition ICD9-CM Code YSY60-YS Code Onset Dates Condition Status SNOMED Code Problem JAKE (generalized anxiety disorder) F41.1 Active 27244950 Problem Bipolar 2 disorder F31.81 Active 78702496 Problem Primary osteoarthritis of both knees M17.0 Active 974162957 Problem Tobacco dependence F17.200 Active 45460328 Problem Other chronic pain G89.29 Active 44410745 Problem Drug-induced erectile dysfunction N52.2 Active 562604993 Problem Lumbago with sciatica, right side M54.41 Active 217032447 Problem Pre-diabetes R73.03 Active 070199178 ALLERGIES No Known Allergies ENCOUNTERS Encounter Location Date Diagnosis [place] [address] [address] Jun, [place] [address] [place] [id number] [place] [address] 28026- 8281 05 Jun, 2017 Abnormal blood creatinine level R79.9 [place] [address] [place] [id number] [place] [address] 08985- 2291 Jun, Pre-diabetes R73.03 and Primary osteoarthritis of both knees M17.0 [facility] [address] [place] [id number] [place] [address] 43571- 8978 Jun, Pre-diabetes R73.03 ; Other chronic pain G89.29 ; Primary osteoarthritis of both knees M17.0 ; Drug-induced erectile dysfunction N52.2 and Tobacco dependence F17.200 [place] [address] [place] [id number] [place] [address] 87149- 7718 May, [facility] [address] [address] May, [facility] [address] [place] [id number] [place] [address] 02332- 8636 May, [facility] [address] [place] [id number] [place] [address] 25951- 2246 May, [facility] [address] [place] [id number] [place] [address] 93927- 2294 May, [facility] [address] [place] [id number] [place] [address] 53610- 6535 May, [facility] [address] [place] [id number] [place] [address] 24607- 0661 May, Bipolar 2 disorder F31.81 ; AJKE (generalized anxiety disorder) F41.1 and Tobacco dependence F17.200 [facility] [address] [place] [id number] [place] [address] 28077- 5752 Jan, [facility] [address] [place] [id number] [place] [address] 95953- 3714 Jan, [facility] [address] [place] [id number] [place] [address] 07496- 4516 Dec, [facility] [address] [place] [id number] [place] [address] 02435- 7091 Dec, [facility] [address] [place] [id number] [place] [address] 61868- 4805 Nov, [facility] [address] [place] [id number] [place] [address] 75533- 7218 25 Nov, 2016 Other chronic pain G89.29 and Pain in left shoulder M25.512 [facility] [address] [place] [id number] [place] [address] 24360- 9312 05 Nov, 2016 Bipolar 2 disorder F31.81 and JAKE (generalized anxiety disorder) F41.1 [facility] [address] [place] [id number] [place] [address] 89942- 9666 Oct, Pre-diabetes R73.03 and Left anterior shoulder pain M25.512 [place] [address] [place] [id number] [place] [address] 33716- 3409 Sep, [facility] [address] [place] [id number] [place] [address] 53814- 0684 July, Lumbago with sciatica, right side M54.41 ; Left anterior shoulder pain M25.512 and Pain in right knee M25.561 [place] [address] [place] [id number] [place] [address] 12314- 7366 Jun, [place] [address] [address] Jun, intermediate designer 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 ; Bipolar 2 disorder F31.81 and JAKE (generalized anxiety disorder) F41.1 [place] [address] 91924- 9[address] May, Low back pain M54.5 ; Pain in right knee M25.561 ; Pain in left knee M25.562 and Pre-diabetes R73.03 [place] [address] [place] [id number] [place] [address] 09445- 4266 May, [place] [address] [place] [id number] [place] [address] 65900- 0697 May, [place] [address] [place] [id number] [place] [address] 06017- 3428 May, Drug-induced erectile dysfunction N52.2 [place] [address] [place] [id number] [place] [address] 43526- 2039 Mar, [place] [address] [address]- [address] Mar, [place] [address] [place] [id number] [place] [address] 23426- 1711 Mar, Encounter for routine adult health examination with abnormal findings Z00.01 ; Low back pain M54.5 ; Other chronic pain G89.29 ; Pain in right knee M25.561 ; Pain in left knee M25.562 ; Family history of diabetes mellitus Z83.3 and Drug-induced erectile dysfunction N52.2 [facility] [address] [place] [id number] [place] [address] 60373- 5636 Mar, Bipolar 2 disorder F31.81 and JAKE (generalized anxiety disorder) F41.1 [facility] [address] [place] [id number] [place] [address] 27343- 4644 Mar, [facility] [address] [place] [id number] [place] [address] 76861- 8144 Feb, [facility] [address] [place] [id number] [place] [address] 46381- 3597 Feb, [facility] [address] [place] [id number] [place] [address] 92924- 6099 Jan, [facility] [address] 9[address]- 3202 Dec, [facility] [address] [place] [id number] [place] [address] 90567- 3868 Dec, [facility] [address] [place] [id number] [place] [address] 77877- 8510 Dec, Bipolar 2 disorder F31.81 and JAKE (generalized anxiety disorder) F41.1 [facility] [address] [place] [id number] [place] [address] 52844- 2441 Nov, [facility] [address] [place] [id number] [place] [address] 89859- 5620 Oct, Bipolar 2 disorder F31.81 and JAKE (generalized anxiety disorder) F41.1 [facility] [address] [place] [id number] [place] [address] 72892- 1465 Oct, Anxiety, generalized F41.1 [facility] [address] [place] [id number] [place] [address] 54097- 3073 Oct, Generalized anxiety disorder F41.1 and Excessive excitability/irritability with unrest R45.89 [facility] [address] [place] [address] [id number] [address] Oct, [facility] [address] [place] [id number] [place] [address] 21542- 8721 Sep, [facility] [address] [place] [id number] [place] [address] 04204- 1174 July, [facility] [address] [place] [id number] [place] [address] 32943- 0355 July, halfway 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 and Excessive excitability/ irritability with unrest R45.89 [facility] [address] [place] [id number] [place] [address] 66846- 1780 July, [facility] [address] [place] [id number] [place] [address] 03594- 2802 July, Generalized anxiety disorder F41.1 [facility] [address] [place] [id number] [place] [address] 81757- 6998 May, [facility] [address] [place] [id number] [place] [address] 65530- 7976 May, [facility] [address] [place] [id number] [place] [address] 48159- 7880 Mar, [facility] [address] [place] [address] 21887- 2035 Feb, [facility] [address] [place] [id number] [place] [address] 16611- 2888 Jan, [facility] [address] [place] [id number] [place] [address] 39083- 9437 Jan, Generalized anxiety disorder F41.1 and Encounter for observation for other suspected diseases and conditions ruled out Z03.89 [facility] [address] [place] [address] 00662- 5055 Jan, Generalized anxiety disorder F41.1 [facility] [address] [place] [address] [place] [address]- 1646 Jan, [facility] [address] [facility] [id number] [address] Dec, Generalized anxiety disorder F41.1 [facility] [address] [facility] [id number] [address] 7149 Dec, Family history of pinworm infection Z83.1 [facility] [address] [facility] [id number] [address] Nov, Generalized anxiety disorder 300.02 ; No condition on [place] II V71.09 and Back problem 724.9 IMMUNIZATIONS No Known Immunizations SOCIAL HISTORY Never Assessed REASON FOR VISIT Diabetes--tcuppettRN, -worsening pain in left arm. PLAN OF CARE Activity Details Follow Up prn Reason: VITAL SIGNS Height 72 in 2016-11-01 Weight 198.1 lbs 2016-11-01 Temperature 97.6 degrees Fahrenheit 2016-11-01 Heart Rate 84 bpm 2016-11-01 Respiratory Rate 20 2016-11-01 BMI 26.86 kg/m2 2016-11-01 Blood pressure systolic 124 mmHg 2016-11-01 Blood pressure diastolic 78 mmHg 2016-11-01 MEDICATIONS Medication Instructions Dosage Frequency Start Date End Date Duration Status Celecoxib 200 mg Orally Once a day 1 capsule 24h Feb, 90 days Active PredniSONE 20 mg Orally Once a day 2 tablets 24h Oct, Oct, 05 days Active Xanax 1 MG Orally take at bedtime 1 tablet Mar, 30 days Active Lamictal 200 mg Orally Once a day 1 tablet 24h Oct, 30 days Active Viagra 25 MG Orally Once a day 1-2 tablet daily as needed before sexual activitiy 24h 5 Active Xanax XR 3 MG Orally Once a day for anxiety 1 tablet Mar, 30 days Active Metformin HCl 500 MG Orally one a day w/ evening meal for 1 week then 1 tablet twice daily w/ meals 1 tablet 90 Active Seroquel 100 mg Orally at bedtime 1 tablet Oct, 30 days Active RESULTS Name Result Date Reference Range A1C (IN HOUSE) 2016-11-01 A1C IN HOUSE 5.2 4.3 - 5.6 % Previous A1c 5.8 Lot 0726 Exp date 06/2018 Xray : Shoulder, Left 2 view (IN HOUSE) 2016-11-01 A1C (IN HOUSE) 2016-11-01 A1C IN HOUSE 5.2 4.3 - 5.6 % Previous A1c 5.8 Lot 0726 Exp date 06/2018 Xray : Shoulder, Left 2 view (IN HOUSE) 2016-11-01 PROCEDURES Procedure Date Ordered Result Body Site GLYCATED HEMOGLOBIN TEST Nov 01, 2016 X-RAY EXAM OF SHOULDER Nov 01, 2016 INSTRUCTIONS MEDICATIONS ADMINISTERED No Known Medications MEDICAL (GENERAL) HISTORY Type Description Date Medical History Anxiety Medical History depression Medical History Bilateral knee pain-needing repair Medical History 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
--- OUTSIDE RECORDS SUMMARY | 2018-06-19 07:51 | XMS REPORT ---
Author Author NICOLLE DELAROSA Organization [facility] Address [address] [place] [address] Care Team Providers Care Dental Service Chief Name Role Phone NICOLLE DELAROSA Unavailable PROBLEMS Type Condition ICD9-CM Code MSE67-JY Code Onset Dates Condition Status SNOMED Code Problem Family history of diabetes mellitus Z83.3 Active 132082293 Problem Low back pain M54.5 Active 527764443 Problem Drug-induced erectile dysfunction N52.2 Active 053621784 Problem Bipolar 2 disorder F31.81 Active 50181676 Problem JAKE (generalized anxiety disorder) F41.1 Active 79408535 Problem Lumbago with sciatica, right side M54.41 Active 057188894 Problem Pre-diabetes R73.03 Active 832625952 Problem Pain in right knee M25.561 Active 66536816 Problem Pain in left knee M25.562 Active 20660562 Problem Encounter for routine adult health examination with abnormal findings Z00.01 Active 012484793 Problem Other chronic pain G89.29 Active 59612984 ALLERGIES No Known Allergies SOCIAL HISTORY Never Assessed PLAN OF CARE Activity Details Follow Up 3 Months Reason: VITAL SIGNS Height 72 in 2016-08-08 Weight 209.5 lbs 2016-08-08 Temperature 98.2 degrees Fahrenheit 2016-08-08 Heart Rate 96 bpm 2016-08-08 Respiratory Rate 20 2016-08-08 BMI 28.41 kg/m2 2016-08-08 Blood pressure systolic 118 mmHg 2016-08-08 Blood pressure diastolic 70 mmHg 2016-08-08 MEDICATIONS Medication Instructions Dosage Frequency Start Date End Date Duration Status Metformin HCl 500 mg Orally one a day w/ evening meal for 1 week then 1 tablet twice daily w/ meals 1 tablet Mar, 90 days Active Viagra 25 MG Orally Once a day 1-2 tablet daily as needed before sexual activitiy 24h 5 Active Seroquel 100 mg Orally at bedtime 1 tablet Oct, 30 days Active Celecoxib 200 mg Orally Once a day 1 capsule 24h 25 Dec, 2017 90 days Active Xanax XR 3 MG Orally Once a day for anxiety 1 tablet Mar, 30 days Active Xanax 1 MG Orally take at bedtime 1 tablet Mar, 30 days Active Lamictal 200 mg Orally Once a day 1 tablet 24h Oct, 30 days Active RESULTS No Results [...] Hospitalization History Surgeries Hospitalization History Disc dislocation- [facility]
--- OUTSIDE RECORDS SUMMARY | 2018-06-19 07:51 | XMS REPORT ---
Author Author NICOLLE DELAROSA Organization [facility] Address [address] [place] [address] Care Team Providers Care Portrait Consultant Name Role Phone NICOLLE DELAROSA Unavailable PROBLEMS Type Condition ICD9-CM Code XQV75-DU Code Onset Dates Condition Status SNOMED Code Problem Family history of diabetes mellitus Z83.3 Active 323605671 Problem Low back pain M54.5 Active 888704917 Problem Drug-induced erectile dysfunction N52.2 Active 011495104 Problem Bipolar 2 disorder F31.81 Active 96624585 Problem JAKE (generalized anxiety disorder) F41.1 Active 57527961 Problem Lumbago with sciatica, right side M54.41 Active 636546075 Problem Pre-diabetes R73.03 Active 608406057 Problem Pain in right knee M25.561 Active 05775525 Problem Pain in left knee M25.562 Active 17301384 Problem Encounter for routine adult health examination with abnormal findings Z00.01 Active 116298042 Problem Other chronic pain G89.29 Active 55140751 ALLERGIES Unknown Allergies SOCIAL HISTORY No smoking Hx information available PLAN OF CARE VITAL SIGNS MEDICATIONS Medication Instructions Dosage Frequency Start Date End Date Duration Status Metformin HCl 500 MG Orally one a day w/ evening meal for 1 week then 1 tablet twice daily w/ meals 1 tablet Mar, 30 day(s) Active RESULTS No Results PROCEDURES No Known procedures IMMUNIZATIONS No Known Immunizations
--- OUTSIDE RECORDS SUMMARY | 2018-06-19 07:51 | XMS REPORT ---
Author Author STEVAN MARTÍNEZ [facility] eClinical[employer] Address Unknown Phone Unavailable Care Team Providers Care Prep Person Name Role Phone STEVAN MARTÍNEZ CP Unavailable Allergies, Adverse Reactions, Alerts Substance Reaction Event Type N.K.D.A. Info Not Available Non Drug Allergy Problems Problem Type Condition Code Onset Dates Condition Status Assessment Generalized anxiety disorder F41.1 Active Medications Medication Code System Code Instructions Start Date End Date Status Dosage Xanax XR [facility] [address]-70 3 MG Orally 3 times a day as needed Jan 30, 2015 1 tablet Procedures Procedure Coding System Code Date Psych diagnostic evaluation w/medical services, established patient CPT-4 [id number] Jan 30, 2015 Vital Signs Date/Time: Jan 30, 2015 Cardiac Monitoring Heart Rate 104 bpm Weight 219.4 lbs Height 72 in BMI 29.75 Index Blood Pressure Diastolic 85 mmHg Blood Pressure Systolic 130 mmHg Results No Known Results Summary Purpose eClinicalWorks Submission
--- OUTSIDE RECORDS SUMMARY | 2018-06-19 07:51 | XMS REPORT ---
Author Author INCOLLE DELAROSA Organization [facility] Address [address] [place] [address] Care Team Providers Care Line Supervisor Name Role Phone NICOLLE DELAROSA Unavailable PROBLEMS Type Condition ICD9-CM Code [id number] Code Onset Dates Condition Status SNOMED Code Problem Family history of diabetes mellitus Z83.3 Active 062454509 Problem Low back pain M54.5 Active 553977927 Problem Drug-induced erectile dysfunction N52.2 Active 241695168 Problem Bipolar 2 disorder F31.81 Active 10549157 Problem JAKE (generalized anxiety disorder) F41.1 Active 31019192 Problem Lumbago with sciatica, right side M54.41 Active 874069289 Problem Pre-diabetes R73.03 Active 384668415 Problem Pain in right knee M25.561 Active 29135627 Problem Pain in left knee M25.562 Active 45468253 Problem Encounter for routine adult health examination with abnormal findings Z00.01 Active 018243220 Problem Other chronic pain G89.29 Active 78432519 ALLERGIES Unknown Allergies SOCIAL HISTORY No smoking Hx information available PLAN OF CARE VITAL SIGNS MEDICATIONS Unknown Medications RESULTS No Results PROCEDURES No Known procedures IMMUNIZATIONS No Known Immunizations
--- OUTSIDE RECORDS SUMMARY | 2018-06-19 07:51 | XMS REPORT ---
Author Author ALEYDA PECK [facility] Address [address] [place] [address] Care Team Providers Care Bilingual Hr Generalist Name Role Phone ALEYDA PECK Unavailable PROBLEMS Type Condition ICD9-CM Code HBI80-JT Code Onset Dates Condition Status SNOMED Code Problem Bipolar 2 disorder F31.81 Active 67763362 Problem JAKE (generalized anxiety disorder) F41.1 Active 56416200 ALLERGIES Unknown Allergies SOCIAL HISTORY No smoking Hx information available PLAN OF CARE VITAL SIGNS MEDICATIONS Medication Instructions Dosage Frequency Start Date End Date Duration Status Seroquel 100 MG Orally at bedtime for sleep 1 tablet Oct, Active Lamictal 100 MG Orally Once a day 1 tablet 24h Oct, Active Xanax 1 MG Orally Three times a day as needed for anxiety 1 tablet Mar, Active RESULTS No Results PROCEDURES No Known procedures IMMUNIZATIONS No Known Immunizations
--- OUTSIDE RECORDS SUMMARY | 2018-06-19 07:51 | XMS REPORT ---
Author Author ALEYDA PECK Organization [facility] Address [address] [place] [address] Care Team Providers Care Computer Operations Specialist Name Role Phone ALEYDA PECK Unavailable PROBLEMS Type Condition ICD9-CM Code HIJ22-KY Code Onset Dates Condition Status SNOMED Code Problem Family history of diabetes mellitus Z83.3 Active 698164042 Problem Low back pain M54.5 Active 459151189 Problem Drug-induced erectile dysfunction N52.2 Active 471373907 Problem Bipolar 2 disorder F31.81 Active 38198501 Problem JAKE (generalized anxiety disorder) F41.1 Active 54797561 Problem Lumbago with sciatica, right side M54.41 Active 635076059 Problem Pre-diabetes R73.03 Active 152892162 Problem Pain in right knee M25.561 Active 83297258 Problem Pain in left knee M25.562 Active 37132829 Problem Encounter for routine adult health examination with abnormal findings Z00.01 Active 052904808 Problem Other chronic pain G89.29 Active 73591488 ALLERGIES No Information SOCIAL HISTORY Never Assessed PLAN OF CARE VITAL SIGNS MEDICATIONS Medication Instructions Dosage Frequency Start Date End Date Duration Status Xanax 1 MG Orally take at bedtime 1 tablet Mar, Active RESULTS No Results [...] Hospitalization History Surgeries Hospitalization History Disc dislocation- [facility]
--- OUTSIDE RECORDS SUMMARY | 2018-06-19 07:52 | XMS REPORT | Continuity of Care Document ---
Author Author [facility] Organization [facility] Address Unknown Phone Unavailable Allergies Active Description Code Type Severity Reaction Onset Reported/Identified Relationship to Patient Clinical Status Yes No Known Drug Allergies [id number] Drug Allergy Unknown N/A 08/01/2013 Medications There is no data. Problems Date Dx Coded Attending Type Code Diagnosis Diagnosed By 08/01/2013 LOULOU WHITLEY DO Ot 718.31 02/26/2014 MICHELLE EMMANUEL MD (DDU) Ot V68.01 02/26/2014 MICHELLE EMMANUEL MD (DDU) Ot V82.89 02/26/2014 TRACE GATES DO Ot 719.41 02/26/2014 TRACE GATES DO Ot 831.01 02/26/2014 TRACE GATES DO Ot E000.8 02/26/2014 TRACE GATES DO Ot E927.0 06/17/2014 COURTNEY MOCTEZUMA APRN Ot 719.41 06/17/2014 COURTNEY MOCTEZUMA APRN Ot 831.01 06/17/2014 COURTNEY MOCTEZUMA APRN Ot E000.8 06/17/2014 COURTNEY MOCTEZUMA APRN Ot E927.0 12/27/2014 COURTNEY MOCTEZUMA APRN Ot 831.01 ANT DISLOC HUMERUS-CLOSE 12/27/2014 COURTNEY MOCTEZUMA APRN Ot 959.2 SHLDR/UPPER ARM INJ NOS 12/27/2014 COURTNEY MOCTEZUMA APRN Ot E000.8 OTHER EXTERNAL CAUSE STATUS 12/27/2014 COURTNEY MOCTEZUMA APRN Ot E849.0 ACCIDENT IN HOME 12/27/2014 COURTNEY MOCTEZUMA APRN Ot E927.0 OVEREXERTION FROM SUDDEN STRENUOUS MOVEM 07/30/2015 COURTNEY MOCTEZUMA APRN Ot 831.01 ANT DISLOC HUMERUS-CLOSE 07/30/2015 COURTNEY MOCTEZUMA APRN Ot 959.2 SHLDR/UPPER ARM INJ NOS 07/30/2015 COURTNEY MOCTEZUMA HOG STICKER Ot E000.8 OTHER EXTERNAL CAUSE STATUS 07/30/2015 COURTNEY MOCTEZUMA APRN Ot E849.0 ACCIDENT IN HOME 07/30/2015 COURTNEY MOCTEZUMA APRN Ot E927.0 OVEREXERTION FROM SUDDEN STRENUOUS MOVEM 08/30/2015 COURTNEY MOCTEZUMA APRN Ot 831.01 ANT DISLOC HUMERUS-CLOSE 08/30/2015 COURTNEY MOCTEZUMA HOG STICKER Ot 959.2 SHLDR/UPPER ARM INJ NOS 08/30/2015 COURTNEY MOCTEZUMA HOG STICKER Ot E000.8 OTHER EXTERNAL CAUSE STATUS 08/30/2015 COURTNEY MOCTEZUMA APRN Ot E849.0 ACCIDENT IN HOME 08/30/2015 COURTNEY MOCTEZUMA APRN Ot E927.0 OVEREXERTION FROM SUDDEN STRENUOUS MOVEM 10/30/2015 COURTNEY MOCTEZUMA APRN Ot 831.01 ANT DISLOC HUMERUS-CLOSE 10/30/2015 COURTNEY MOCTEZUMA APRN Ot 959.2 SHLDR/UPPER ARM INJ NOS 10/30/2015 COURTNEY MOCTEZUMA HOG STICKER Ot E000.8 OTHER EXTERNAL CAUSE STATUS 10/30/2015 COURTNEY MOCTEZMUA APRN Ot E849.0 ACCIDENT IN HOME 10/30/2015 COURTNEY MOCTEZUMA APRN Ot E927.0 OVEREXERTION FROM SUDDEN STRENUOUS MOVEM 01/07/2017 NICOLLE DELAROSA HOG STICKER Ot M75.122 COMPLETE ROTATR-CUFF TEAR/RUPTR OF LEFT 01/07/2017 NICOLLE DELAROSA HOG STICKER Ot M75.82 OTHER SHOULDER LESIONS, LEFT SHOULDER 01/07/2017 NICOLLE DELAROSA HOG STICKER Ot S46.812A STRAIN OF MUSC/FASC/TEND AT SHLDR/UP ARM 01/07/2017 NICOLLE DELAROSA HOG STICKER Ot X58.XXXA EXPOSURE TO OTHER SPECIFIED FACTORS, INI 01/07/2017 NICOLLE DELAROSA HOG STICKER Ot Y99.8 OTHER EXTERNAL CAUSE STATUS 01/07/2017 NICOLLE DELAROSA HOG STICKER Ot M75.122 COMPLETE ROTATR-CUFF TEAR/RUPTR OF LEFT 01/07/2017 NICOLLE DELAROSA HOG STICKER Ot M75.82 OTHER SHOULDER LESIONS, LEFT SHOULDER 01/07/2017 NICOLLE DELAROSA HOG STICKER Ot S46.812A STRAIN OF MUSC/FASC/TEND AT SHLDR/UP ARM 01/07/2017 NICOLLE DELAROSA HOG STICKER Ot X58.XXXA EXPOSURE TO OTHER SPECIFIED FACTORS, INI 01/07/2017 NICOLLE DELAROSA HOG STICKER Ot Y99.8 OTHER EXTERNAL CAUSE STATUS 02/03/2017 NICOLLE DELAROSA HOG STICKER Ot M75.122 COMPLETE ROTATR-CUFF TEAR/RUPTR OF LEFT 02/03/2017 NICOLLE DELAROSA HOG STICKER Ot M75.82 OTHER SHOULDER LESIONS, LEFT SHOULDER 02/03/2017 NICOLLE DELAROSA HOG STICKER Ot S46.812A STRAIN OF MUSC/FASC/TEND AT SHLDR/UP ARM 02/03/2017 NICOLLE DELAROSA HOG STICKER Ot X58.XXXA EXPOSURE TO OTHER SPECIFIED FACTORS, INI 02/03/2017 NICOLLE DELAROSA HOG STICKER Ot Y99.8 OTHER EXTERNAL CAUSE STATUS 05/15/2017 NIKOLE LAY 727.61 COMPLETE RUPTURE OF ROTATOR CUFF 05/15/2017 NIKOLE LAY M75.122 COMPLETE ROTATR-CUFF TEAR/RUPTR OF LEFT SHOULDER, NOT TRAUMA 06/17/2018 CATHY PATEL, LOIS Ham Ot Z01.818 ENCOUNTER FOR OTHER PREPROCEDURAL EXAMIN 06/18/2018 LOIS MORGAN MD Ot Z01.818 ENCOUNTER FOR OTHER PREPROCEDURAL EXAMIN Procedures There is no data. Results Test Result Range CBC With Differential/Platelet - 04/05/16 10:03 WBC 9.0 x10E3/uL 3.4-10.8 RBC 5.57 x10E6/uL 4.14-5.80 Hemoglobin 16.4 g/dL 12.6-17.7 Hematocrit 47.6 % 37.5-51.0 MCV 86 fL 79-97 MCH 29.4 pg 26.6-33.0 MCHC 34.5 g/dL 31.5-35.7 RDW 13.6 % 12.3-15.4 Platelets 222 x10E3/uL 150-379 Neutrophils 69 % Lymphs 20 % Monocytes 8 % Eos 2 % Basos 0 % Neutrophils (Absolute) 6.2 x10E3/uL 1.4-7.0 Lymphs (Absolute) 1.8 x10E3/uL 0.7-3.1 Monocytes(Absolute) 0.7 x10E3/uL 0.1-0.9 Eos (Absolute) 0.2 x10E3/uL 0.0-0.4 Baso (Absolute) 0.0 x10E3/uL 0.0-0.2 Immature Granulocytes 1 % Immature Grans (Abs) 0.1 x10E3/uL 0.0-0.1 Comp. Metabolic Panel (14) - 04/05/16 10:03 Glucose, Serum 112 mg/dL 65-99 BUN 14 mg/dL 6-24 Creatinine, Serum 1.23 mg/dL 0.76-1.27 eGFR If NonAfricn Am 64 mL/min/1.73 >59 eGFR If Africn Am 74 mL/min/1.73 >59 BUN/Creatinine Ratio 11 9-20 Sodium, Serum 143 mmol/L 134-144 Potassium, Serum 4.6 mmol/L 3.5-5.2 Chloride, Serum 101 mmol/L 96-106 Carbon Dioxide, Total 25 mmol/L 18-29 Calcium, Serum 10.0 mg/dL 8.7-10.2 Protein, Total, Serum 7.4 g/dL 6.0-8.5 Albumin, Serum 4.7 g/dL 3.5-5.5 Globulin, Total 2.7 g/dL 1.5-4.5 A/G Ratio 1.7 1.1-2.5 Bilirubin, Total 0.2 mg/dL 0.0-1.2 Alkaline Phosphatase, S 111 IU/L 39-117 AST (SGOT) 23 IU/L 0-40 ALT (SGPT) 29 IU/L 0-44 Lipid Panel - 04/05/16 10:03 Cholesterol, Total 185 mg/dL 100-199 Triglycerides 142 mg/dL 0-149 HDL Cholesterol 44 mg/dL >39 VLDL Cholesterol Tad 28 mg/dL 5-40 LDL Cholesterol Calc 113 mg/dL 0-99 Hemoglobin A1c - 04/05/16 10:03 Hemoglobin A1c 5.8 % 4.8-5.6 Thyroid [place] Profile - 04/05/16 10:03 TSH 0.775 uIU/mL 0.450-4.500 THYROID ANALYZER - 07/01/17 08:49 TSH 1.93 mIU/L 0.40-4.50 CMP - 09/04/17 10:28 GLUCOSE 94 mg/dL 65-99 UREA NITROGEN (BUN) 13 mg/dL 7-25 CREATININE 1.08 mg/dL 0.70-1.25 eGFR NON-AFR. YEMENI 74 mL/min/1.73m2 > OR=60 eGFR 86 mL/min/1.73m2 > OR=60 BUN/CREATININE RATIO NOT APPLICABLE (calc) 6-22 SODIUM 139 mmol/L 135-146 POTASSIUM 4.3 mmol/L 3.5-5.3 CHLORIDE 103 mmol/L 98-110 CARBON DIOXIDE 31 mmol/L 20-31 CALCIUM 9.8 mg/dL 8.6-10.3 PROTEIN, TOTAL 7.2 g/dL 6.1-8.1 ALBUMIN 4.5 g/dL 3.6-5.1 GLOBULIN 2.7 g/dL (calc) 1.9-3.7 ALBUMIN/GLOBULIN RATIO 1.7 (calc) 1.0-2.5 BILIRUBIN, TOTAL 0.4 mg/dL 0.2-1.2 ALKALINE PHOSPHATASE 103 U/L 40-115 AST 17 U/L 10-35 ALT 22 U/L 9-46 PDM - PAIN MGMT (PROFILE 3 WITH CONFIRMATION) - 02/10/18 12:12 Prescribed Drug 1 Xanax(TM) NRG Creatinine 160.6 mg/dL > or=20.0 pH 6.28 4.5 - 9.0 Oxidant NEGATIVE mcg/mL <200 Amphetamines NEGATIVE ng/mL <500 medMATCH Amphetamines CONSISTENT NRG Benzodiazepines POSITIVE ng/mL <100 Marijuana Metabolite NEGATIVE ng/mL <20 medMATCH Marijuana Metab CONSISTENT NRG Cocaine Metabolite NEGATIVE ng/mL <150 medMATCH Cocaine Metab CONSISTENT NRG Opiates NEGATIVE ng/mL <100 medMATCH Opiates CONSISTENT NRG Oxycodone NEGATIVE ng/mL <100 medMATCH Oxycodone CONSISTENT NRG COMMENT NRG Alphahydroxyalprazolam >1000 ng/mL <25 medMATCH aOH alprazolam CONSISTENT NRG Alphahydroxymidazolam NEGATIVE ng/mL <50 medMATCH aOH midazolam CONSISTENT NRG Alphahydroxytriazolam NEGATIVE ng/mL <50 medMATCH aOH triazolam CONSISTENT NRG Aminoclonazepam NEGATIVE ng/mL <25 medMATCH Aminoclonazepam CONSISTENT NRG Hydroxyethylflurazepam NEGATIVE ng/mL <50 medMATCH OH,Et flurazepam CONSISTENT NRG Lorazepam NEGATIVE ng/mL <50 medMATCH Lorazepam CONSISTENT NRG Nordiazepam NEGATIVE ng/mL <50 medMATCH Nordiazepam CONSISTENT NRG Oxazepam NEGATIVE ng/mL <50 medMATCH Oxazepam CONSISTENT NRG Temazepam NEGATIVE ng/mL <50 medMATCH Temazepam CONSISTENT NRG Encounters ACCT No. Visit Date/Time Discharge Status Pt. Type Provider Facility Loc./Unit Complaint [id number] 06/17/2018 05:35:00 06/17/2018 14:32:00 DIS Outpatient LOIS MORGAN MD [facility] PREOP YAG [id number] 12/31/2016 11:39:00 12/31/2016 23:59:59 CLS Outpatient NICOLLE DELAROSA HOG STICKER [facility] RAD M25.512 [id number] 12/27/2014 16:05:00 12/27/2014 17:53:00 DIS Emergency COURTNEY MOCTEZUMA HOG STICKER [facility] ER R SHOULDER INJ [id number] 06/17/2014 14:21:00 06/17/2014 16:36:00 DIS Emergency COURTNEY MOCTEZUMA HOG STICKER [facility] ER [id number] 02/26/2014 04:40:00 02/26/2014 07:20:00 DIS Emergency TRACE GATES DO [facility] ER [id number] 12/01/2013 14:26:00 12/01/2013 23:59:59 CLS Outpatient MICHELLE EMMANUEL MD (DDU) [facility] RAD [id number] 08/01/2013 15:57:00 08/01/2013 18:30:00 DIS Outpatient LOULOU WHITLEY DO [facility] [id number] 06/19/2018 07:40:00 ACT Outpatient LOIS MORGAN MD [facility] YAG [id number] 04/06/2016 13:05:00 Document Registration [id number] 02/03/2017 10:16:00 05/15/2017 08:54:00 DIS Outpatient NIKOLE LAY [id number] 06/16/2018 11:00:00 ACT Outpatient ALYSA PATEL, [facility] [id number] 02/10/2018 11:00:00 Document Registration [id number] 09/04/2017 09:20:00 Document Registration [id number] 07/01/2017 09:00:00 Document Registration
--- OUTSIDE RECORDS SUMMARY | 2018-06-19 07:52 | XMS REPORT ---
Author Author STEVAN MARTÍNEZ [facility] [employer] Address Unknown Phone Unavailable Care Team Providers Care Pottery Decorator Name Role Phone STEVAN MARTÍNEZ CP Unavailable Allergies, Adverse Reactions, Alerts Substance Reaction Event Type N.K.D.A. Info Not Available Non Drug Allergy Problems Problem Type Condition Code Onset Dates Condition Status Assessment Encounter for observation for other suspected diseases and conditions ruled out Z03.89 Active Assessment Generalized anxiety disorder F41.1 Active Medications Medication Code System Code Instructions Start Date End Date Status Dosage Xanax XR [facility] [address]-09 3 MG Orally 3 times a day as needed Jan 30, 2015 1 tablet Procedures Procedure Coding System Code Date Office Visit, Est Pt., Level 5 CPT-4 40722 Feb 15, 2015 Vital Signs Date/Time: Feb 15, 2015 Cardiac Monitoring Heart Rate 102 bpm Weight 217.2 lbs Height 72 in BMI 29.45 Index Blood Pressure Diastolic 78 mmHg Blood Pressure Systolic 108 mmHg Results No Known Results Summary Purpose eClinicalWorks Submission
--- OUTSIDE RECORDS SUMMARY | 2018-06-19 07:52 | XMS REPORT ---
Author Author STEVAN MARTÍNEZ Organization [employer] Address Unknown Phone Unavailable Care Team Providers Care Print Finishing Worker Name Role Phone STEVAN MARTÍNEZ Unavailable Allergies No Known Allergies Problems No Known Problems Medications Medication Code System Code Instructions Start Date End Date Status Dosage Xanax [facility] [address]-70 2 MG Orally witth the 1 mg tablet Three times a day Apr 18, [address] [facility] [address]-58 1 MG Orally with the 2mg tablet Three times a day Apr 18, 2015 1 tablet Results No Known Results Summary Purpose eClinicalWorks Submission
--- OUTSIDE RECORDS SUMMARY | 2018-06-19 07:52 | XMS REPORT ---
Author Author ANTHONY FRAGA [facility] [employer] Address Unknown Phone Unavailable Care Team Providers Care Butter Maker Name Role Phone ANTHONY FRAGA CP Unavailable Allergies, Adverse Reactions, Alerts Substance Reaction Event Type N.K.D.A. Info Not Available Non Drug Allergy Problems Problem Type Condition Code Onset Dates Condition Status Assessment Excessive excitability/irritability with unrest R45.89 Active Assessment Generalized anxiety disorder F41.1 Active Medications Medication Code System Code Instructions Start Date End Date Status Dosage Xanax [facility] [address]-99 1 MG Orally with the 2mg tablet Three times a day. must attend appt for further refill Apr 18, 2015 1 tablet Xanax [facility] [address]-96 2 MG Orally Three times a day Apr 18, 2015 1 tablet Seroquel [facility] [address]-28 50 mg Orally Once a day Nov 07, 2015 1 tablet Procedures Procedure Coding System Code Date Office Visit, Est Pt., Level 4 CPT-4 21884 Nov 07, 2015 Vital Signs Date/Time: Nov 07, 2015 Cardiac Monitoring Heart Rate 90 bpm Weight 217 lbs Height 72 in BMI 29.43 Index Blood Pressure Diastolic 76 mmHg Blood Pressure Systolic 122 mmHg Results No Known Results Summary Purpose eClinicalWorks Submission
--- OUTSIDE RECORDS SUMMARY | 2018-06-19 07:52 | XMS REPORT ---
Author Author ALEYDA PECK [facility] Address [address] [place] [address] Care Team Providers Care Center Customer Service Associate Name Role Phone CISCO ALEYDA Unavailable PROBLEMS Type Condition ICD9-CM Code AQB31-MV Code Onset Dates Condition Status SNOMED Code Problem JAKE (generalized anxiety disorder) F41.1 Active 72646904 Problem Bipolar 2 disorder F31.81 Active 04877081 Problem Primary osteoarthritis of both knees M17.0 Active 016192230 Problem Tobacco dependence F17.200 Active 88806308 Problem Other chronic pain G89.29 Active 85147973 Problem Drug-induced erectile dysfunction N52.2 Active 957291134 Problem Lumbago with sciatica, right side M54.41 Active 445972615 Problem Pre-diabetes R73.03 Active 991656208 ALLERGIES No Information ENCOUNTERS Encounter Location Date Diagnosis [place] [id number] [address] Jun, [place] [address] [place] [id number] [place] [address] Jun, Abnormal blood creatinine level R79.9 [facility] [address] [id number] [place] [address] 42039- 8708 Jun, Pre-diabetes R73.03 and Primary osteoarthritis of both knees M17.0 [facility] [address] [id number] [place] [address] 35849- 0759 Jun, Pre-diabetes R73.03 ; Other chronic pain G89.29 ; Primary osteoarthritis of both knees M17.0 ; Drug-induced erectile dysfunction N52.2 and Tobacco dependence F17.200 [facility] [id number] [place] [address] 24416- 1535 May, [facility] [address] [place] [id number] [address] May, [facility] [id number] [place] [address] 12630- 1122 May, [facility] [id number] [place] [address] 90787- 6526 May, [facility] [id number] [place] [address] 275415- 0446 May, [facility] [id number] [place] [address] 89683- 5993 May, [facility] [id number] [place] [address] 57560- 3814 May, Bipolar 2 disorder F31.81 ; JAKE (generalized anxiety disorder) F41.1 and Tobacco dependence F17.200 [facility] [id number] [place] [address] 97783- 0370 Jan, [facility] [id number] [place] [address] 55567- 5278 Jan, [facility] [address] [id number] [place] [address] 06762- 2830 18 Dec, 2016 [facility] [id number] [place] [address] 50780- 3255 Dec, [facility] [id number] [place] [address] 86566- 4410 Nov, [facility] [id number] [place] [address] 28495- 2543 25 Nov, 2016 Other chronic pain G89.29 and Pain in left shoulder M25.512 [facility] [address] [place] [id number] [place] [address] 04400- 0178 05 Nov, 2016 Bipolar 2 disorder F31.81 and JAKE (generalized anxiety disorder) F41.1 [facility] [address] [place] [id number] [place] [address] 81107- 9752 Oct, Pre-diabetes R73.03 and Left anterior shoulder pain M25.512 [facility] [address] [place] [id number] [place] [address] 72218- 2397 Sep, [facility] [address] [place] [id number] [place] [address] 47612- 3842 July, Lumbago with sciatica, right side M54.41 ; Left anterior shoulder pain M25.512 and Pain in right knee M25.561 [place] [address] [place] [id number] [place] [address] 85610- 1284 Jun, [place] [address] [address] Jun, 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 ; Bipolar 2 disorder F31.81 and JAKE (generalized anxiety disorder) F41.1 [place] [address] [address]- [address] May, Low back pain M54.5 ; Pain in right knee M25.561 ; Pain in left knee M25.562 and Pre-diabetes R73.03 [place] [address] [place] [id number] [place] [address] 70186- 0638 May, [facility] [address] [place] [id number] [place] [address] 46291- 3510 May, [place] [address] [place] [id number] [place] [address] 19476- 3498 May, Drug-induced erectile dysfunction N52.2 [facility] [address] [place] [id number] [place] [address] 23806- 1259 Mar, [facility] [address] [address]- [address] Mar, [place] [address] [place] [id number] [place] [address] 84351- 3335 Mar, Encounter for routine adult health examination with abnormal findings Z00.01 ; Low back pain M54.5 ; Other chronic pain G89.29 ; Pain in right knee M25.561 ; Pain in left knee M25.562 ; Family history of diabetes mellitus Z83.3 and Drug-induced erectile dysfunction N52.2 [facility] [address] [place] [id number] [place] [address] 03444- 1729 Mar, Bipolar 2 disorder F31.81 and JAKE (generalized anxiety disorder) F41.1 [facility] [address] [place] [id number] [place] [address] 41042- 8441 Mar, [facility] [address] [place] [id number] [place] [address] 19593- 4176 Feb, [facility] [address] [place] [id number] [place] [address] 42177- 5600 Feb, [facility] [address] [place] [id number] [place] [address] 14586- 4488 Jan, [facility] [address] [place] [id number] [place] [address] 07776- 9475 Dec, [facility] [address] [place] [id number] [place] [address] 83315- 2677 Dec, [facility] [address] [place] [id number] [place] [address] 52672- 3749 Dec, Bipolar 2 disorder F31.81 and JAKE (generalized anxiety disorder) F41.1 [facility] [address] [place] [id number] [place] [address] 31401- 3668 Nov, [facility] [address] [place] [id number] [place] [address] 40215- 3378 Oct, Bipolar 2 disorder F31.81 and JAKE (generalized anxiety disorder) F41.1 [facility] [address] [place] [id number] [place] [address] 96010- 2656 Oct, Anxiety, generalized F41.1 [facility] [address] [place] [id number] [place] [address] 12575- 6907 Oct, Generalized anxiety disorder F41.1 and Excessive excitability/irritability with unrest R45.89 [facility] [address] [place] [address] Oct, [facility] [address] [place] [id number] [place] [address] 68111- 4193 Sep, [facility] [address] [place] [place] [id number] [place] [address] 98924- 7073 July, [facility] [id number] [place] [address] 56385- 5068 July, [facility] 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 and Excessive excitability/ irritability with unrest R45.89 [facility] [address] [place] [id number] [place] [address] 61552- 2363 July, [facility] [address] [place] [id number] [place] [address] 07958- 4692 July, Generalized anxiety disorder F41.1 [facility] [address] [place] [id number] [place] [address] 32987- 4714 May, [facility] [address] [place] [id number] [place] [address] 01933- 3166 May, [facility] [address] [id number] [place] [address] 01901- 3815 Mar, [facility] [id number] [place] [address] 22607- 5327 Feb, [facility] [address] [place] [id number] [place] [address] 84880- 2796 Jan, [facility] [address] [place] [id number] [place] [address] 46479- 3522 Jan, Generalized anxiety disorder F41.1 and Encounter for observation for other suspected diseases and conditions ruled out Z03.89 [facility] [address] [place] [id number] [place] [address] 54751- 8105 Jan, Generalized anxiety disorder F41.1 [facility] [address] [place] [address] Jan, [facility] [address] [facility] [id number] Dec, Generalized anxiety disorder F41.1 [facility] [address] [facility] [id number] [address] Dec, Family history of pinworm infection Z83.1 [facility] [address] [facility] [id number] [address] Nov, Generalized anxiety disorder 300.02 ; No condition on [place] V71.09 and Back problem 724.9 IMMUNIZATIONS [...]
[2018-06-19] MEDS: TROPICAMIDE 1% OPH SOLN (MYDRIACYL) 15 ML BTL OU PRN ×3 (08:14→08:29)
[2018-06-19] MEDS: TETRACAINE 0.5% OPHTH SOLN 4 ML BTL (SINGLE DOSE ONLY) OU PRN ×3 (08:14→08:28)
[2018-06-19] MEDS: PHENYLEPHRINE 10% OPHTH (NEO-SYN) 5 ML BTL OU PRN ×3 (08:14→08:29)
[2018-06-19] MEDS ORDERED: MIDAZOLAM 2 MG/2 ML (VERSED) VIAL ONE (08:19)
--- NOTE | 2018-06-19 08:43 | Ophthalmologist Pre-Op Note ---
Pre-Operative Progress Note H&P Reviewed The H&P was reviewed, patient examined and no changes noted. Date H&P Reviewed: Jun 19, 2018 Time H&P Reviewed: 08:43 Pre-Op Dx Secondary Cataract, Bilateral Eyes LOIS MORGAN MD Jun 19, 2018 08:43
[2018-06-19 09:30] VITALS: BP 109/86
--- NOTE | 2018-06-19 09:40 | Ophthalmology Operative Report ---
YAG Capsulotomy PREOPERATIVE DIAGNOSIS: Secondary Cataract Bilateral POSTOPERATIVE DIAGNOSIS: Secondary Cataract Bilateral PROCEDURE: YAG Capsulotomy, Bilateral SURGEON: Abhilash Morgan ANESTHESIA: Topical anesthesia COMPLICATIONS: None ESTIMATED BLOOD LOSS: Minimal DESCRIPTION OF PROCEDURE: After proper informed consent was obtained, the patient's, a 62 male , received one drop of Tropicamide and one drop of Tetracaine in each eye. The patient was then placed at the YAG laser and using a power of [ 5.0] millijoules and bursts [21 ] right eye and [ 23] left eye were used to fashion a central capsulotomy. The patient tolerated the procedure well without complications and the patient's pressure was [ 17/17] shortly after the laser. ABHILASH MORGAN MD Jun 19, 2018 09:39
== END 2018-06-19 09:30 | disposition home or self-care (01) ==
LOC: SDC 07:40
PROVIDERS: ATTEND Specialist
DX: H26.493 Other secondary cataract, bilateral (principal); E11.36 Type 2 diabetes mellitus with diabetic cataract; Z79.84 Long term (current) use of oral hypoglycemic drugs; Z79.899 Other long term (current) drug therapy